=== PATIENT | male | born 1950 | race Caucasian/White ===

== ENCOUNTER 2019-04-08 11:14 | Outpatient (RCR) | payer OTHER ==
[~2019-04-08 11:14] MED LIST: ALBU17AE3 IH; ALBU8.5H4 IH; ASP325T PO; BSP10T PO; BUDE6HFA IH; DESV50TA PO; HCTZ12.5T PO; HYDR1TAB PO; LISI10TA PO; LISI1TAB6 PO; METO25TA PO; OMEG-12 PO; TRAZ150T42 PO; VENL75CA55 PO
[2019-04-22] MEDS ORDERED: REGADENOSON 0.4 MG/5 ML SYR (LEXISCAN) IV ONE (08:48)
[2019-04-22] MEDS ORDERED: ACET-2267 PO (10:45)
[2019-04-22] MEDS ORDERED: POTA-51 PO (10:45)
[2019-04-22] MEDS ORDERED: LISI1TAB29 PO (10:45)
[2019-04-22] MEDS ORDERED: RT-ALBUINH IH (10:45)
[2019-04-22] MEDS ORDERED: NICO4GUM31 BC (10:45)
[2019-04-22] MEDS ORDERED: AMLO10TA7 PO (10:45)
[2019-04-22] MEDS ORDERED: CIPR-225 PO (10:46)
[2019-04-23] MEDS ORDERED: NS IV 500 ML 500 ML ONE (09:02)
[2019-04-24] MEDS ORDERED: PRED10TA22 PO (07:13)
[2019-04-24] MEDS ORDERED: FLUT12AE4 IH (07:13)
[2019-04-24] MEDS ORDERED: DILT120C88 PO (07:13)
[2019-04-24] MEDS ORDERED: APIX5TAB PO (07:13)
[2019-04-27] MEDS ORDERED: FLUT12AE4 IH (09:04)
[2019-04-27] MEDS ORDERED: APIX5TAB PO (09:04)
[2019-04-27] MEDS ORDERED: DILT120C88 PO (09:04)
== END 2019-07-07 | disposition home or self-care (01) ==
LOC: CARD 11:14
PROVIDERS: ATTEND Nurse Practitioner Adult Health
DX: I49.9 Cardiac arrhythmia, unspecified (principal)
CPT/HCPCS: 93225; 93226

== ENCOUNTER → 2019-04-12 | Outpatient (CLI) | payer OTHER | LOC: CARD 07:51 | PROVIDERS: ATTEND Nurse Practitioner Adult Health | DX: I49.9 Cardiac arrhythmia, unspecified (principal); I51.7 Cardiomegaly | CPT/HCPCS: 93306 ==

== ENCOUNTER 2019-04-21 00:41 | Inpatient (IN) | payer OTHER ==
[~2019-04-21] VITALS: Ht 182.8 cm; Wt 135.8 kg
[2019-04-21] MEDS ORDERED: RT-ALBUTEROL/IPRATROPIUM 3 ML (DUONEB) VIAL ONE (01:11)
[2019-04-21] MEDS ORDERED: RT-ALBUTEROL/IPRATROPIUM 3 ML (DUONEB) VIAL INH ONE (01:15)
[2019-04-21 01:23] LABS: BASOPHILS % (AUTO) 0 % (0-10); EOSINOPHILS # (AUTO) 0.2 10^3/uL (0.0-0.3); EOSINOPHILS % (AUTO) 4 % (0-10); HEMATOCRIT 42 % (40-54); HEMOGLOBIN 14.4 G/DL (13.3-17.7); LYMPHOCYTES # (AUTO) 1.2 X 10^3 (1.0-4.0); LYMPHOCYTES % (AUTO) 26 % (12-44); MEAN CORPUSCULAR HEMOGLOBIN 32 PG (25-34); MEAN CORPUSCULAR HGB CONC 34 G/DL (32-36); MEAN CORPUSCULAR VOLUME 94 FL (80-99); MEAN PLATELET VOLUME 10.9 FL (7.4-10.4); MONOCYTES # (AUTO) 0.5 X 10^3 (0.0-1.0); MONOCYTES % (AUTO) 10 % (0-12); NEUTROPHILS # (AUTO) 2.8 X 10^3 (1.8-7.8); NEUTROPHILS % (AUTO) 61 % (42-75); PLATELET COUNT 124 10^3/uL (130-400); RED CELL DISTRIBUTION WIDTH 13.2 % (10.0-14.5); WHITE BLOOD COUNT 4.6 10^3/uL (4.3-11.0)
[2019-04-21 01:29] LABS: PROTHROMBIN TIME PATIENT 13.5 SEC (12.2-14.7)
[2019-04-21 01:36] LABS: ALANINE AMINOTRANSFERASE 24 U/L (0-55); ALKALINE PHOSPHATASE 47 U/L (40-136); BILIRUBIN,TOTAL 0.4 MG/DL (0.1-1.0); BUN/CREATININE RATIO 15; CALCIUM 8.8 MG/DL (8.5-10.1); CARBON DIOXIDE 21 MMOL/L (21-32); CHLORIDE 102 MMOL/L (98-107); CREATININE SERUM 1.08 MG/DL (0.60-1.30); GFR ESTIMATED > 60; GLUCOSE 114 MG/DL (70-105); POTASSIUM 3.5 MMOL/L (3.6-5.0); SODIUM 137 MMOL/L (135-145); TOTAL PROTEIN 7.6 GM/DL (6.4-8.2)
[2019-04-21] MEDS ORDERED: RT-ALBUTEROL SULF 2.5 MG/3 ML PRE-MIX VIAL INH STA ×2 (02:42→03:41)
[2019-04-21] MEDS ORDERED: predniSONE 20 MG TAB PO ONE (02:45)
--- NOTE | 2019-04-21 03:00 | ED Respiratory ---
General Chief Complaint: Respiratory Problems Stated Complaint: SOA Nursing Triage Note: PT PRESENTS TO THE ED C/O EXERTIONAL SOA AND PERSISTENT COUGH THAT HAS BEEN ONGOING FOR ONE MONTH BUT HAS WORSENED IN SEVERITY OVER THE LAST 2-3 DAYS. Source: patient Exam Limitations: no limitations History of Present Illness Date Seen by Provider: Apr 21, 2019 Time Seen by Provider: 01:15 Initial Comments Here with report of shortness of air now with some anterior chest tightness. Seen by his provider and started on antibiotic. Has used an inhaler and states it's helped a little bit. Does history concerning for possible COPD that's undergoing evaluation currently. Recently quit smoking. Unsure about fevers but has had chills. No vomiting but has had loose stools and is coughing quite a bit. He has a fair amount of mucous that he is coughing up. Timing/Duration: getting worse, other (2-3 days) Severity: moderate Prior Episodes/Possible Cause: occasional episodes Modifying Factors: Improves With Albuterol Inhaler; Worse With Coughing; Improves With Rest Associated Symptoms: cough, fever/chills, nasal congestion, nasal drainage, shortness of breath, wheezing Allergies and Home Medications Allergies Coded Allergies: No Known Drug Allergies (Unverified , 07/26/11) Home Medications Albuterol Sulfate 8.5 Gm Hfa.aer.ad, 8.5 GM IH PRN, (Reported) SOB/Wheezing Aspirin 325 Mg Tab, 325 MG PO DAILY, (Reported) Budesonide/Formoterol Fumarate 10.2 Gm Hfa.aer.ad, 10.2 GM IH BID, (Reported) Buspirone Hcl 10 Mg Tablet, 20 MG PO BID, (Reported) Hctz/Lisinopril 1 Each Tablet, 1 EACH PO DAILY, (Reported) Metoprolol Succinate 25 Mg Tab.sr.24h, 25 MG PO DAILY, (Reported) [place]osit-3/Dha/Epa/Fish Oil 1 Each Capsule.dr, 2,000 MG PO BID, (Reported) Venlafaxine Hcl 75 Mg Cap.sr.24h, 75 MG PO DAILY, (Reported) Patient Home Medication List Home Medication List Reviewed: Yes Review of Systems Review of Systems Constitutional: see HPI; No chills, No fever EENTM: see HPI Respiratory: see HPI; No hemoptysis, No orthopnea Cardiovascular: chest pain (tightness to the left side lower chest.); No edema Gastrointestinal: No abdominal pain, No nausea, No vomiting Genitourinary: no symptoms reported Musculoskeletal: no symptoms reported Skin: no symptoms reported Psychiatric/Neurological: No Symptoms Reported Hematologic/Lymphatic: No Symptoms Reported All Other Systems Reviewed Negative Unless Noted: Yes Past Lwfixsq-Ebfpii-Rfcobq Hx Past Med/Social Hx: Reviewed Nursing Past Med/Soc Hx Patient Social History Alcohol Use: Occasionally Uses Alcohol Beverage of Choice: Beer Recreational Drug Use: No Smoking Status: Current Everyday Smoker Type Used: Cigarettes Recent Foreign Travel: No Contact w/Someone Who Travel: No Recent Infectious Disease Expo: No Physical Abuse: No Sexual Abuse: No Mistreated: No Fear: No Immunizations Up To Date Tetanus Booster (TDap): Unknown PED Vaccines UTD: Yes Date of Pneumonia Vaccine: Jan 25, 2012 Date of Influenza Vaccine: Jan 19, 2011 Past Medical History Surgeries: No Respiratory: No Cardiac: Yes Atrial Fibrillation Neurological: No Reproductive Disorders: No Sexually Transmitted Disease: No Genitourinary: No Gastrointestinal: No Musculoskeletal: Yes (RESTLESS LEG SYNDROME) Endocrine: No HEENT: No Cancer: No Psychosocial: No Integumentary: Yes (MOLES-REMOVED) Blood Disorders: No Family Medical History Reviewed Nursing Family Hx No Pertinent Family Hx Physical Exam Vital Signs - First Documented 04/21/19 00:43 Temp 36.7 Pulse 89 Resp 26 B/P (MAP) 141/98 (112) Pulse Ox 97 O2 Delivery Room Air Capillary Refill : Less Than 3 Seconds Height: '" Weight: lbs. oz. kg; 39.00 BMI Method: General Appearance: WD/WN, no apparent distress HEENT: PERRL/EOMI, pharyngeal erythema, other (mild nasal congestion) Neck: full range of motion, supple Respiratory: no accessory muscle use, decreased breath sounds, wheezing Cardiovascular: regular rate, rhythm, no murmur Gastrointestinal: non tender, soft Extremities: non-tender, normal inspection Neurologic/Psychiatric: alert, oriented x 3 Skin: normal color, warm/dry Focused Exam Lactate Level 04/21/19 01:20: Lactic Acid Level 1.64 Lactic Acid Level Laboratory Tests Test 04/21/19 01:20 Lactic Acid Level 1.64 MMOL/L (0.50-2.00) Progress/Results/Core Measures Suspected Sepsis Recent Fever Within 48 Hours: No Infection Criteria Present: None New/Unexplained Altered Menta: No Sepsis Screen: No Definite Risk SIRS Temperature: Pulse: 89 Respiratory Rate: 26 Laboratory Tests 04/21/19 00:50: White Blood Count 4.6 Blood Pressure 141 /98 Mean: 112 04/21/19 01:20: Lactic Acid Level 1.64 Laboratory Tests 04/21/19 00:50: Creatinine 1.08, INR Comment 1.0, Platelet Count 124L, Total Bilirubin 0.4 Results/Orders Lab Results Laboratory Tests Test 04/21/19 00:50 04/21/19 01:20 04/21/19 02:50 Range/Units White Blood Count 4.6 4.3-11.0 10^3/uL Red Blood Count 4.44 4.35-5.85 10^6/uL Hemoglobin 14.4 13.3-17.7 G/DL Hematocrit 42 40-54 % Mean Corpuscular Volume 94 80-99 FL Mean Corpuscular Hemoglobin 32 25-34 PG Mean Corpuscular Hemoglobin Concent 34 32-36 G/DL Red Cell Distribution Width 13.2 10.0-14.5 % Platelet Count 124 L 130-400 10^3/uL Mean Platelet Volume 10.9 H 7.4-10.4 FL Neutrophils (%) (Auto) 61 42-75 % Lymphocytes (%) (Auto) 26 12-44 % Monocytes (%) (Auto) 10 0-12 % Eosinophils (%) (Auto) 4 0-10 % Basophils (%) (Auto) 0 0-10 % Neutrophils # (Auto) 2.8 1.8-7.8 X 10^3 Lymphocytes # (Auto) 1.2 1.0-4.0 X 10^3 Monocytes # (Auto) 0.5 0.0-1.0 X 10^3 Eosinophils # (Auto) 0.2 0.0-0.3 10^3/uL Basophils # (Auto) 0.0 0.0-0.1 10^3/uL Prothrombin Time 13.5 12.2-14.7 SEC INR Comment 1.0 0.8-1.4 Activated Partial Thromboplast Time 29 24-35 SEC Sodium Level 137 135-145 MMOL/L Potassium Level 3.5 L 3.6-5.0 MMOL/L Chloride Level 102 98-107 MMOL/L Carbon Dioxide Level 21 21-32 MMOL/L Anion Gap 14 5-14 MMOL/L Blood Urea Nitrogen 16 7-18 MG/DL Creatinine 1.08 0.60-1.30 MG/DL Estimat Glomerular Filtration Rate > 60 BUN/Creatinine Ratio 15 Glucose Level 114 H 70-105 MG/DL Calcium Level 8.8 8.5-10.1 MG/DL Corrected Calcium 8.8 8.5-10.1 MG/DL Total Bilirubin 0.4 0.1-1.0 MG/DL Aspartate Amino Transf (AST/SGOT) 30 5-34 U/L Alanine Aminotransferase (ALT/SGPT) 24 0-55 U/L Alkaline Phosphatase 47 40-136 U/L Troponin I < 0.028 < 0.028 <0.028 NG/ML Total Protein 7.6 6.4-8.2 GM/DL Albumin 4.0 3.2-4.5 GM/DL Lactic Acid Level 1.64 0.50-2.00 MMOL/L My Orders Orders - ANJU CONNER MD Albuterol/Ipra Inhalation Soln (Duoneb I (04/21/19 01:11) Albuterol/Ipra Inhalation Soln (Duoneb I (04/21/19 01:15) Cbc With Automated Diff (04/21/19 01:13) Comprehensive Metabolic Panel (04/21/19 01:13) Blood Culture (04/21/19 01:13) Sputum Culture (04/21/19 01:13) Urinalysis (04/21/19 01:13) Urine Culture (04/21/19 01:13) Protime With Inr (04/21/19 01:13) Partial Thromboplastin Time (04/21/19 01:13) Chest 1 View, Ap/Pa Only (04/21/19 01:13) Ed Iv/Invasive Line Start (04/21/19 01:13) Ed Iv/Invasive Line Start (04/21/19 01:13) Troponin I (04/21/19 01:13) Vital Signs Adult Sepsis Patie Q15M (04/21/19 01:13) O2 (04/21/19 01:13) Remove Rings In Anticipation O (04/21/19 01:13) Lactic Acid Analyzer (04/21/19 01:13) Svn Small Volume Nebulizer (04/21/19 01:13) Ekg Tracing (04/21/19 01:48) Albuterol Pre-Mix Nebs (Rt) (Proventil (04/21/19 02:42) Troponin I (04/21/19 02:42) Svn Small Volume Nebulizer (04/21/19 02:42) Prednisone Tablet (Deltasone Tablet) (04/21/19 02:45) Aspirin Chewable Tablet (Baby Aspirin Ch (04/21/19 03:38) Albuterol Pre-Mix Nebs (Rt) (Proventil (04/21/19 03:41) Ipratropium 0.02% Neb Solution (Atrovent (04/21/19 03:45) Svn Small Volume Nebulizer (04/21/19 03:41) Svn Small Volume Nebulizer (04/21/19 03:41) Medications Given in ED Current Medications Medications Dose Ordered Sig/Sher Route Start Time Stop Time Status Last Admin Dose Admin Albuterol/ Ipratropium 3 ml ONCE ONCE INH 04/21/19 01:15 04/21/19 01:16 DC 04/21/19 01:19 3 ML Prednisone 60 mg ONCE ONCE PO 04/21/19 02:45 04/21/19 02:46 DC 04/21/19 02:46 60 MG Vital Signs/I&O 04/21/19 04/21/19 00:43 01:16 Temp 36.7 Pulse 89 Resp 26 B/P (MAP) 141/98 (112) Pulse Ox 97 95 O2 Delivery Room Air Room Air Capillary Refill : Less Than 3 Seconds Blood Pressure Mean: 112 Progress Note : Progress Note Seen and evaluated. Sepsis order set initiated plus troponin and EKG. Duo neb ordered. Monitor patient. 0300: Repeat nebulizer treatments with albuterol 3 and prednisone 60 mg by mouth ordered. We will repeat troponin. Patient is better after initial DuoNeb and states the chest tightness that he was experiencing has decreased but is still there so we will repeat the troponin. Monitor patient. 0333: Patient below better after repeat albuterol nebs. Noted to have desats while coughing. States he feels like he is moving a bit more air. I discussed with him regarding his atrial fibrillation. He believes he may be on a blood thinner but is not sure and did not bring his meds. [facility] He will require hour-long treatment and he is going to require more persistent respiratory therapy to help him overcome the COPD exacerbation he currently has. Chest pressure has decreased with the nebulizer treatments and I do believe this is related to tightness although he will need further evaluation with cardiology. He recently had an echocardiogram with Dr. Chavez in March. I did discuss with him regarding staying and he would like to stay. I discussed the case with Dr. Méndez and she accepts patient for admission, inpatient status. Consult cardiology in the morning. Patient agrees with plan. ASA 324 mg by mouth was given as well. ECG Initial ECG Impression Date: Apr 21, 2019 Initial ECG Impression Time: 00:57 Initial ECG Rate: 83 Initial ECG Rhythm: A Fib/Flutter Initial ECG Impression: Atrial Fibrillation Comment Atrial fibrillation with right bundle branch block and left anterior fascicular block. Changed from sinus previously on 06/24/12. Left axis deviation. No evidence of ST elevation CT. Interpreted by me. Diagnostic Imaging Diagonstic Imaging: Xray Plain Films/CT/US/NM/MRI: chest Comments Chronic lung disease without obvious infiltrate. Reviewed: Reviewed by Me Departure Communication (Admissions) Time/Spoke to Admitting Phy: 03:33 Impression Primary Impression: COPD with acute exacerbation Disposition: ADMITTED INPATIENT Condition: Stable Admissions Decision to Admit Reason: Admit from ER (General) Decision to Admit/Date: Apr 21, 2019 Time/Decision to Admit Time: 03:33 Departure-Patient Inst. Referrals: NO,LOCAL PHYSICIAN (PCP) Primary Care Physician POLY GARCIA (Family) Primary Care Physician ANJU CONNER MD Apr 21, 2019 03:00
[2019-04-21] MEDS ORDERED: ASPIRIN 81 MG CHEW (CHILDREN'S ASA) PO STA (03:38)
[2019-04-21] MEDS ORDERED: RT-IPRATROPIUM (ATROVENT) 0.5MG/2.5ML AMP IH ONE (03:45)
--- NOTE | 2019-04-21 04:08 | NUR ---
rt called to resume breathing tx when pt arrives on 4th floor.
[2019-04-21 04:15] VITALS: BP 120/80
--- NOTE | 2019-04-21 04:15 | NUR ---
PEACE BRUCE admitted to room 414-1, with an admitting diagnosis of CHEST PAIN/COPD , on 04/21/19 from ED via , accompanied by ED STAFF.PEACE BRUCE introduced to surroundings, call light, bed controls, phone, TV, temperature control, lights, meal times, smoking policy, visitor policy, side rail policy, bathrooms and showers. Patient Rights given to patient in the handbook. PEACE BRUCE verbalizes understanding that [facility] is not responsible for the loss or damage to any personal effects or valuables that are kept in the patients posession during their hospitalization.
[2019-04-21] MEDS ORDERED: LACTATED RINGERS 1,000 ML IV ONE (04:26)
[2019-04-21] MEDS: LACTATED RINGERS 1,000 ML IV SCH ×2 (05:49→17:31)
[2019-04-21] MEDS: predniSONE 20 MG TAB PO SCH (06:19)
--- NOTE | 2019-04-21 06:56 | Diagnostic Imaging Report ---
INDICATION: Cough and congestion. Comparison made with prior examination 07/29/2012. FINDINGS: There is cardiomegaly. There is some venous congestion. There are bilateral perihilar infiltrates. There is no pleural effusion or pneumothorax. Mediastinum is unremarkable. IMPRESSION: Perihilar infiltrate suspect for pneumonia. Some underlying central pulmonary venous congestion cannot be excluded. Dictated by: Dictated on workstation # [id number]
[2019-04-21] MEDS ORDERED: NITROGLYCERIN 0.4 MG SL TABS BTL 25'S SL PRN (07:30)
[2019-04-21] MEDS ORDERED: morphine INJ 4 MG/ML 1 ML (VIAL/SYRINGE) IV PRN (07:30)
[2019-04-21] MEDS ORDERED: RT-ALBUTEROL/IPRATROPIUM 3 ML (DUONEB) VIAL INH PRN (07:45)
[2019-04-21 08:00] VITALS: BP 124/75
[2019-04-21] MEDS: ASPIRIN 325 MG (5 GR) TABLET PO SCH (08:54)
--- NOTE | 2019-04-21 11:44 | NUR ---
DR COATES ORDERED ECHO -- [facility] INST[facility]ER WAS CALLED
[2019-04-21] MEDS: RT-ALBUTEROL/IPRATROPIUM 3 ML (DUONEB) VIAL INH SCH ×4 (11:59→23:18)
[2019-04-21 12:00] VITALS: BP 131/70
--- NOTE | 2019-04-21 12:05 | History & Physical-Hospitalist ---
History of Present Illness HPI/Chief Complaint Pt is a 68yoCM who presented to the ER due to SOB. he states this has been going on for a few days and he was started on anabiotic by his doctor at the [facility]. Despite this he has not improved and he has been using his albuterol every 2 hours. He does not know the diagnosis of COPD but he has been told he is being worked up for this. He has a long history of smoking and has been working on quitting cutting down from a pack per day to one cigarette every couple of days. He was treated with multiple breathing treatments and started on prednisone and despite this only had minimal improvement and was admitted due to COPD exacerbation. He did complain of some chest pain as well and troponin were done and were negative 3. He received aspirin in the emergency room. Source: patient Date Seen 04/21/19 Time Seen by a Provider: 11:59 Attending Physician Lawanda Méndez MD PCP No,Local Physician Referring Physician Date of Admission Apr 21, 2019 at 03:40 Home Medications & Allergies Home Medications Reviewed patient Home Medication Reconciliation performed by pharmacy medication reconciliations certified pest control technician and/or nursing. Patients Allergies have been reviewed. Allergies Allergies Coded Allergies No Known Drug Allergies (Unverified07/26/11) Past Izprbjb-Xiayms-Xemozq Hx Past Med/Social Hx: Reviewed Nursing Past Med/Soc Hx Patient Social History Alcohol Use: Past History (quit 01/2019) Recreational Drug Use: No Smoking Status: Current Someday Smoker Type Used: Cigarettes Recent Foreign Travel: No Contact w/other who traveled: No Recent Infectious Disease Expo: No Immunizations Up To Date Tetanus Booster (TDap): Unknown Pediatric: Yes Date of Pneumonia Vaccine: Jan 19, 2019 Date of Influenza Vaccine: Jan 19, 2019 Past Medical History Respiratory: COPD Cardiac: Atrial Fibrillation, Hypertension Reproductive: No Sexually Transmitted Disease: No History of Blood Disorders: No Family History Reviewed Nursing Family Hx No Pertinent Family Hx Review of Systems Constitutional: No chills, No fever EENTM: no symptoms reported Respiratory: cough, dyspnea on exertion; No hemoptysis; short of breath, wheezing Cardiovascular: see HPI, chest pain Gastrointestinal: no symptoms reported Genitourinary: no symptoms reported Musculoskeletal: no symptoms reported Skin: no symptoms reported Psychiatric/Neurological: No Symptoms Reported Physical Exam Physical Exam Vital Signs Vital Signs - First Documented 04/21/19 04/21/19 04/21/19 00:43 08:09 20:00 Temp 36.7 Pulse 89 Resp 26 B/P (MAP) 141/98 (112) Pulse Ox 97 O2 Delivery Room Air O2 Flow Rate 2.00 FiO2 21 Capillary Refill : Less Than 3 Seconds Height, Weight, BMI Height: '" Weight: lbs. oz. kg; 42.64 BMI Method: General Appearance: No Apparent Distress, WD/WN, Anxious HEENT: Moist Mucous Membranes; No Scleral Icterus (L), No Scleral Icterus (R) Neck: Normal Inspection, Supple; No Thyromegaly Respiratory: No Accessory Muscle Use, No Respiratory Distress, Wheezing (expiratory) Cardiovascular: Regular Rate, Rhythm, No Murmur Gastrointestinal: Normal Bowel Sounds, Non Tender, Soft Extremity: No Calf Tenderness, No Pedal Edema Neurologic/Psychiatric: Alert, Oriented x3 Skin: Normal Color, Tattoos/Piercings Results Results/Procedures Labs Laboratory Tests 04/21/19 00:50 Patient resulted labs reviewed. Imaging: Reviewed Imaging Report Imaging Date of Exam:04/21/19 CHEST 1 VIEW, AP/PA ONLY INDICATION: Cough and congestion. Comparison made with prior examination 07/29/2012. FINDINGS: There is cardiomegaly. There is some venous congestion. There are bilateral perihilar infiltrates. There is no pleural effusion or pneumothorax. Mediastinum is unremarkable. IMPRESSION: Perihilar infiltrate suspect for pneumonia. Some underlying central pulmonary venous congestion cannot be excluded. Assessment/Plan Admission Diagnosis COPD Exacerbation Admission Status: Inpatient Order (span 2 midnights) Reason for Inpatient Admission: Failed outpatient management Assessment and Plan COPD Exacerbation Recent PNA Continue Prednisone and SVNs Continues to wheeze and is dyspneic with conversation Not appropriate for DC home today Recently completed abx for PNA so will not start abx here as is afebrile and without leukocytosis HTN A-fib Chest pain Add telemetry lovenox for stroke ppx Cardiology consulted, appreciate recs Troponin negative x3 BP well controlled so will hold home meds for now Tobacco abuse h/o alcohol abuse Recommended continued cessation Diagnosis/Problems Diagnosis/Problems (1) Atrial fibrillation Status: Acute Qualifiers: Atrial fibrillation type: paroxysmal Qualified Codes: I48.0 - Paroxysmal atrial fibrillation (2) Tobacco abuse Status: Acute (3) Alcohol abuse Status: Acute (4) COPD with acute exacerbation Status: Acute (5) Chest pain Status: Acute Qualifiers: Chest pain type: chest pain on breathing Qualified Codes: R07.1 - Chest pain on breathing Clinical Quality Measures DVT/VTE Risk/Contraindication: Risk Factor Score Per Nursin RFS Level Per Nursing on Admit: 4+=Very High LAWANDA MÉNDEZ MD Apr 21, 2019 12:05
[2019-04-21] MEDS: ENOXAPARIN 300 MG/3 ML (LOVENOX) MULTI-DOSE VIAL SQ SCH (13:50)
[2019-04-21 16:05] VITALS: BP 149/75
--- NOTE | 2019-04-21 16:06 | Consultation-Cardiology ---
HPI-Cardiology Cardiology Consultation: Date of Consultation 04/21/19 Date of Admission Attending Physician Tavia Méndez MD Admitting Physician No,Local Physician Consulting Physician Harriet CALLAWAY MD HPI: Time Seen by a Provider: 13:00 Chief Complaint: Shortness of breath, chest pain This is a 68-year-old gentleman who has history of COPD and active smoking. He quit smoking a month ago. He does have family history of [place]. He denies any cardiac problems previously. He had coronary angiography done in June [address] Chavez which would minimal CAD. He presented with worsening shortness of breath with severe orthopnea. Also complained of chest discomfort. Substernal but associated with coughing. No exacerbating or relieving factors. Moderate to severe intensity. Review of Systems-Cardiology Review of Systems Constitutional: As described under HPI; No As described under HPI, No no symptoms reported, No chills, No fever, No lightheadedness Eyes: No As described under HPI, No no symptoms reported, No blindness, No blurred vision, No contact lenses, No drainage, No decreased acuity, No foreign body sensation, No pain, No vision change Ears/Nose/Throat: No As described under HPI, No no symptoms reported, No chronic hearing loss, No ear discharge, No ear pain, No nasal drainage, No ulcerations Respiratory: No no symptoms reported; As described under HPI; No As described under HPI, No cough; orthopnea; No shortness of breath, No SOB with excertion Cardiovascular: No no symptoms reported; As described under HPI; No As described under HPI; chest pain; No edema, No irregular heart rate, No lightheadedness, No palpitations Gastrointestinal: No no symptoms reported, No As described under HPI, No abdomen distended, No abdominal pain, No blood streaked bowels, No constipation, No diarrhea, No nausea, No vomiting, No stool coloration changes Genitourinary: No As described under HPI, No burning, No dysuria, No discharge, No frequency, No flank pain, No hematuria, No urgency Skin: No rash, No skin related problems, No ulcerations Psychiatric/Neurological: No anxiety, No depression, No seizure, No focal weakness, No syncope Hematologic: No bleeding abnormalities All Other Systems Reviewed Negative Unless Noted: Yes WCD-Edxuyy-Sopepl Hx Patient Social History Alcohol Use: Past History (quit 01/2019) Recreational Drug Use: No Smoking Status: Current Someday Smoker Type Used: Cigarettes Recent Foreign Travel: No Recent Infectious Disease Expo: No Hospitalization with Isolation: Denies Immunizations Up To Date Tetanus Booster (TDap): Unknown Date of Pneumonia Vaccine: Jan 19, 2019 Date of Influenza Vaccine: Jan 19, 2019 Past Medical History PMH As described under Assessment. Allergies and Home Medications Allergies Coded Allergies: No Known Drug Allergies (Unverified , 07/26/11) Home Medications Albuterol Sulfate 8.5 Gm Hfa.aer.ad, 8.5 GM IH PRN, (Reported) SOB/Wheezing Budesonide/Formoterol Fumarate 10.2 Gm Hfa.aer.ad, 10.2 GM IH BID, (Reported) Hctz/Lisinopril 1 Each Tablet, 1 EACH PO DAILY, (Reported) Metoprolol Succinate 25 Mg Tab.sr.24h, 25 MG PO DAILY, (Reported) [place]-3/Dha/Epa/Fish Oil 1 Each Capsule.dr, 2,000 MG PO BID, (Reported) Patient Home Medication List Home Medication List Reviewed: Yes Physical Exam-Cardiology Physical Exam Vital Signs/I&O 04/21/19 04/21/19 04/21/19 04/21/19 04:04 04:15 04:15 08:00 Temp 36.7 37.2 36.2 Pulse 86 97 82 Resp 12 22 20 B/P (MAP) 126/105 120/80 124/75 (91) Pulse Ox 100 97 93 O2 Delivery Room Air Room Air Room Air Room Air 04/21/19 04/21/19 04/21/19 04/21/19 08:04 08:09 12:00 12:00 Temp 35.8 Pulse 85 69 Resp 20 B/P (MAP) 131/70 (90) Pulse Ox 91 91 91 96 O2 Delivery Room Air Room Air Room Air FiO2 21 04/21/19 13:36 Pulse 73 Capillary Refill : Less Than 3 Seconds Constitutional: appears stated age, AAO x 3, apparent distress, well-developed, well-nourished HEENT: PERRL; No discharge; hearing is well preserved, oral hygience is good; No ulceration, No xanthelasmas are seen Neck: No carotid bruit; carotid pulses are 2 + bilaterally Respiratory: accessory muscle use, respiratory distress, chest is bilaterally symmetric, other (course breathing bilaterally. No active wheezing.) Cardiovascular: regular rate-rhythm, S1 and S2 Gastrointestinal: soft, audible bowel sounds; No spleenomegaly Rectal: deferred Extremities: normal range of motion, non-tender, normal inspection; No clubbing, No cyanosis; no lower extremity edema bilateral; No significant edema Neurologic/Psychiatric: no motor/sensory deficits, alert, normal mood/affect, oriented x 3, power is 5/5 both on sides Skin: normal color, warm/dry; No rash, No ulcerations Data Review Labs Laboratory Tests 04/21/19 00:50: White Blood Count 4.6, Red Blood Count 4.44, Hemoglobin 14.4, Hematocrit 42, Mean Corpuscular Volume 94, Mean Corpuscular Hemoglobin 32, Mean Corpuscular Hemoglobin Concent 34, Red Cell Distribution Width 13.2, Platelet Count 124L, Mean Platelet Volume 10.9H, Neutrophils (%) (Auto) 61, Lymphocytes (%) (Auto) 26, Monocytes (%) (Auto) 10, Eosinophils (%) (Auto) 4, Basophils (%) (Auto) 0, Neutrophils # (Auto) 2.8, Lymphocytes # (Auto) 1.2, Monocytes # (Auto) 0.5, Eosinophils # (Auto) 0.2, Basophils # (Auto) 0.0, Prothrombin Time 13.5, INR Comment 1.0, Activated Partial Thromboplast Time 29, Sodium Level 137, Potassium Level 3.5L, Chloride Level 102, Carbon Dioxide Level 21, Anion Gap 14, Blood Urea Nitrogen 16, Creatinine 1.08, Estimat Glomerular Filtration Rate > 60, BUN/Creatinine Ratio 15, Glucose Level 114H, Calcium Level 8.8, Corrected Calcium 8.8, Total Bilirubin 0.4, Aspartate Amino Transf (AST/SGOT) 30, Alanine Aminotransferase (ALT/SGPT) 24, Alkaline Phosphatase 47, Troponin I < 0.028, To pro Protein 7.6, Albumin 4.0 04/21/19 01:20: Lactic Acid Level 1.64 04/21/19 02:50: Troponin I < 0.028 04/21/19 07:05: Troponin I < 0.028 A/P-Cardiology Assessment/Admission Diagnosis COPD exacerbation, Acute respiratory failure, Possible mild diastolic congestive heart failure, Chest pain, Active smoking. Plan COPD exacerbation, defer to the primary team. Acute respiratory failure, due to COPD exacerbation. Possible mild diastolic congestive heart failure, acute BNP. However unlikely significant congestive heart failure. Check echocardiogram. Chest pain, serial troponin negative. Likely will require a stress test in the near future. Active smoking. Strongly suggested to not restart smoking. Thank you for your consultation. Please call me if you have any questions. German Callaway MD, FACP, FACC, FSCAI, FHRS, CCDS Interventional Cardiology Cardiac Electrophysiology Vascular Medicine and Endovascular Interventions Clinical Quality Measures DVT/VTE Risk/Contraindication: Risk Factor Score Per Nursin RFS Level Per Nursing on Admit: 4+=Very High Harriet CALLAWAY MD Apr 21, 2019 16:06
[2019-04-21] MEDS ORDERED: REGADENOSON 0.4 MG/5 ML SYR (LEXISCAN) IV ONE (16:30)
[2019-04-21] MEDS ORDERED: ACETAMINOPHEN 500 MG TAB (TYLENOL) PO PRN (18:45)
[2019-04-21 20:00] VITALS: BP 136/81
[2019-04-21 23:58] VITALS: BP 139/76
[2019-04-22] MEDS: ENOXAPARIN 300 MG/3 ML (LOVENOX) MULTI-DOSE VIAL SQ SCH ×2 (00:29→14:31)
[2019-04-22] MEDS: LORazepam 0.5 MG (ATIVAN) TABLET PO PRN (01:59)
[2019-04-22] MEDS: RT-ALBUTEROL/IPRATROPIUM 3 ML (DUONEB) VIAL INH SCH ×6 (02:18→21:44)
[2019-04-22 03:04] VITALS: BP 174/75
[2019-04-22] MEDS: predniSONE 20 MG TAB PO SCH (05:48)
[2019-04-22 07:45] VITALS: BP 143/88
[2019-04-22] MEDS ORDERED: CATHETER FLUSH 10 ML SYR IV PRN (07:45)
[2019-04-22] MEDS: ASPIRIN 325 MG (5 GR) TABLET PO SCH ×2 (08:43→10:22)
[2019-04-22] MEDS: LACTATED RINGERS 1,000 ML IV SCH (08:44)
--- NOTE | 2019-04-22 09:59 | Progress Note - Hospitalist ---
Subjective HPI/CC On Admission Date Seen by Provider: Apr 22, 2019 Time Seen by Provider: 09:54 Pt is a 68yoCM who presented to the ER due to SOB. he states this has been going on for a few days and he was started on anabiotic by his doctor at the [facility]. Despite this he has not improved and he has been using his albuterol every 2 hours. He does not know the diagnosis of COPD but he has been told he is being worked up for this. He has a long history of smoking and has been working on quitting cutting down from a pack per day to one cigarette every couple of days. He was treated with multiple breathing treatments and started on prednisone and despite this only had minimal improvement and was admitted due to COPD exacerbation. He did complain of some chest pain as well and troponin were done and were negative 3. He received aspirin in the emergency room. Subjective/Events-last exam Pt reports feeling worse today. More short of breath. Was to have a stress test but that was cancelled duet o SOB. Still having sputum. Focused Exam Lactate Level 04/21/19 01:20: Lactic Acid Level 1.64 Objective Exam Vital Signs Vital Signs Date Time Temp Pulse Resp B/P (MAP) Pulse Ox O2 Delivery O2 Flow Rate FiO2 04/22/19 07:45 36.4 77 24 143/88 (106) 92 Nasal Cannula 2.00 04/21/19 08:09 21 Capillary Refill : Less Than 3 SecondsLess Than 3 Seconds General Appearance: No Apparent Distress, Anxious Respiratory: No Respiratory Distress; No Crackles; Wheezing (expiratory) Cardiovascular: Regular Rate, Rhythm, No Murmur Gastrointestinal: Normal Bowel Sounds, Non Tender, Soft Extremity: No Calf Tenderness, No Pedal Edema Neurologic/Psychiatric: Alert, Oriented x3 Results/Procedures Lab Patient resulted labs reviewed. Imaging: Reviewed Imaging Report Assessment/Plan Assessment and Plan Assess & Plan/Chief Complaint COPD Exacerbation Recent PNA Continue Prednisone and SVNs Continues to wheeze and is dyspneic with conversation but some component seems to be anxiety driven Recently completed abx for PNA so will not start abx here as is afebrile and without leukocytosis Advair added Will consult pulm HTN A-fib Chest pain lovenox Cardiology consulted, appreciate recs Was to have stress test but was cancelled due to dyspnea BP trending up, will resume home meds when med rec available Tobacco abuse h/o alcohol abuse Recommended continued cessation Diagnosis/Problems Diagnosis/Problems (1) Atrial fibrillation Status: Acute Qualifiers: Atrial fibrillation type: paroxysmal Qualified Codes: I48.0 - Paroxysmal atrial fibrillation (2) Tobacco abuse Status: Acute (3) Alcohol abuse Status: Acute (4) COPD with acute exacerbation Status: Acute (5) Chest pain Status: Acute Qualifiers: Chest pain type: chest pain on breathing Qualified Codes: R07.1 - Chest pain on breathing Clinical Quality Measures DVT/VTE Risk/Contraindication: Risk Factor Score Per Nursin RFS Level Per Nursing on Admit: 4+=Very High LAWANDA HELMS MD Apr 22, 2019 09:59
[2019-04-22] MEDS ORDERED: RT-ALBUINH IH (10:45)
[2019-04-22] MEDS ORDERED: LISI1TAB6 PO (10:45)
[2019-04-22] MEDS ORDERED: ACET-2267 PO (10:45)
[2019-04-22] MEDS ORDERED: AMLO10TA7 PO (10:45)
[2019-04-22] MEDS ORDERED: POTA-51 PO (10:45)
[2019-04-22] MEDS ORDERED: NICO4GUM31 BC (10:45)
[2019-04-22] MEDS ORDERED: CIPR-225 PO (10:46)
--- NOTE | 2019-04-22 10:52 | NUR ---
HAD A LIST FAXED OVER FROM THE [facility] AND WENT OVER IT WITH THE PATIENT. HE VERIFIED WHAT HE IS TAKING HOWEVER IS PAST DUE FOR REFILL ON A FEW, I NOTED THE PAST DUE FILL DATES ON THE MED REC. [facility]: 03-09-19 POTASSIUM 20MEQ 1/2 TAB DAILY #45 03-08-19 NICOTINE 4MG GUM #110 02-17-19 PROAIR INHALER 2 PUFFS BID PRN 12-08-18 AMLODIPINE 10MG 1/2 TAB EVER EVENING #45 12-08-18 LISINOPRIL HCTZ 10-12.5MG DAILY #90 11-14-18 OFLOXACIN (NO LONGER TAKING) 11-14-18 PREDNISOLONE ACETATE 1% (NO LONGER TAKING) HE HAS A BOTTLE WITH HIM FROM [employer] FOR AN ANTIBIOTIC: 04-20-19 CIPRO 500MG BID X 10 DAYS HE ALSO STATES HE HAS TYLENOL PRN OTC. HE NO LONGER TAKES THE FISH OIL THAT IS [facility].
[2019-04-22 11:30] VITALS: BP 167/81
--- NOTE | 2019-04-22 12:07 | Pulmonary Consultation ---
History of Present Illness History of Present Illness Date of Admission Allergies and Home Medications Allergies Coded Allergies: No Known Drug Allergies (Unverified , 07/26/11) Home Medications Acetaminophen 500 Mg Tablet, 500-1,000 MG PO Q4H PRN for PAIN-MILD (1-4), (Reported) Albuterol Sulfate 1 Puff Puff, 2 PUFF IH BID PRN for SHORTNESS OF BREATH, (Reported) 1 PUFF = 90 MCG Amlodipine Besylate 10 Mg Tablet, 5 MG PO DAILY, (Reported) LAST FILLED #45 12-08-18 TAKES 1/2 (10MG) TABLET Ciprofloxacin HCl 500 Mg Tablet, 500 MG PO BID, (Reported) 10 DAY SUPPLY FILLED 04-20-19 Lisinopril/Hydrochlorothiazide 1 Each Tablet, 1 TAB PO DAILY, (Reported) LAST FILLED #90 12-08-18 Nicotine Polacrilex 4 Mg Gum, 4 MG BC Q1H PRN for SMOKING CESSATION, (Reported) CHEW GUM UTNIL TINGLING SENSATION, THEN PARK THE GUM BETWEEN CHEEK AND GUM AREA. REPEAT (RE-CHEW) WHEN TINGLING STOPS. DON'T EXCEED 24 PIECES PER DAY Potassium Chloride 20 Meq Tablet.er, 10 MEQ PO DAILY, (Reported) TAKES 1/2 (20MEQ) TABLET Past Mapguhz-Kflurl-Vbrqfn Hx Past Med/Social Hx: Reviewed Nursing Past Med/Soc Hx Patient Social History Alcohol Use: Past History (quit 01/2019) Recreational Drug Use: No Smoking Status: Current Someday Smoker Type Used: Cigarettes Recent Foreign Travel: No Contact w/Someone Who Travel: No Recent Infectious Disease Expo: No Physical Abuse: No Sexual Abuse: No Mistreated: No Fear: No Immunizations Up To Date Tetanus Booster (TDap): Unknown PED Vaccines UTD: Yes Date of Pneumonia Vaccine: Jan 19, 2019 Date of Influenza Vaccine: Jan 19, 2019 Past Medical History Surgeries: No Respiratory: No Cardiac: Yes Atrial Fibrillation, Hypertension Neurological: No Reproductive Disorders: No Sexually Transmitted Disease: No Genitourinary: No Gastrointestinal: No Musculoskeletal: Yes (RESTLESS LEG SYNDROME) Endocrine: No HEENT: No Cancer: No Psychosocial: No Integumentary: Yes (MOLES-REMOVED) Blood Disorders: No Family Medical History Reviewed Nursing Family Hx No Pertinent Family Hx Sepsis Event Evaluation Height, Weight, BMI Height: '" Weight: lbs. oz. kg; 42.64 BMI Method: Exam Exam Vital Signs Date Time Temp Pulse Resp B/P (MAP) Pulse Ox O2 Delivery O2 Flow Rate FiO2 04/22/19 11:52 96 Nasal Cannula 2.00 04/22/19 11:30 37.6 71 22 167/81 (109) 98 Nasal Cannula 2.00 04/22/19 08:00 Nasal Cannula 2.00 04/22/19 07:45 36.4 77 24 143/88 (106) 92 Nasal Cannula 2.00 04/22/19 07:00 87 04/22/19 06:58 96 Nasal Cannula 2.00 04/22/19 03:04 36.4 77 26 174/75 (108) 92 Nasal Cannula 2.00 04/22/19 02:18 93 Room Air 04/22/19 00:58 70 04/21/19 23:58 36.8 69 22 139/76 (97) 97 Nasal Cannula 2.00 04/21/19 23:18 96 Room Air 04/21/19 20:00 36.6 63 20 136/81 (99) 99 Nasal Cannula 2.00 04/21/19 20:00 99 Nasal Cannula 2.00 04/21/19 19:20 36.6 04/21/19 19:00 66 04/21/19 18:50 93 Room Air 04/21/19 16:05 36.3 75 18 149/75 (99) 96 Room Air 04/21/19 13:36 73 I & O 04/22/19 07:00 Intake Total 1750 ml Output Total 1400 ml Balance 350 ml Height & Weight Height: '" Weight: lbs. oz. kg; 42.64 BMI Method: General Appearance: No Apparent Distress, Anxious HEENT: Moist Mucous Membranes; No Scleral Icterus (L), No Scleral Icterus (R) Neck: Normal Inspection, Supple; No Thyromegaly Respiratory: No Respiratory Distress; No Crackles; Wheezing (expiratory) Cardiovascular: Regular Rate, Rhythm, No Murmur Capillary Refill: Less Than 3 Seconds Gastrointestinal: non tender, soft Extremity: No Calf Tenderness, No Pedal Edema Neurologic/Psychiatric: Alert, Oriented x3 Skin: Normal Color, Tattoos/Piercings Results Lab Laboratory Tests 04/21/19 00:50 Assessment/Plan Assessment/Plan COPDAE -Currently on prednisone 40mg daily -SVNS Q 4 , Advair -repeat CXR -Check BNP - if elevated will give lasix and d/c IVF Resolving PNA -S/P abx -No leukocytosis, no fever -Agree with holding off on further Abx at this point CP -Cardiology consulted -Stress test was cancelled secondary to SOB A-fib HTN Tobacco abuse -Education h/o alcohol abuse Recommended continued cessation BRIANNA NELSON DO Apr 22, 2019 12:07
--- NOTE | 2019-04-22 12:28 | Diagnostic Imaging Report ---
INDICATION: Shortness of breath. TIME OF EXAM: 12:13 PM Correlation is made with prior chest from one day earlier. Heart size is stable. There has been some improved aeration since yesterday. No parenchymal consolidation is seen. No effusion or pneumothorax is identified. IMPRESSION: Improved aeration of both lungs when compared with study one day earlier. Dictated by: Dictated on workstation # [id number]
[2019-04-22] MEDS ORDERED: FUROSEMIDE 40 MG/4 ML INJ (LASIX) IVP ONE (15:45)
[2019-04-22] MEDS ORDERED: KCL 20 MEQ TAB (K-DUR) PO ONE (15:45)
[2019-04-22 16:00] VITALS: BP 157/80
[2019-04-22] MEDS: RT-ADVAIR HFA 115/21 MCG PER PUFF IH SCH ×2 (16:10→20:24)
--- NOTE | 2019-04-22 16:38 | Cardiology Progress Note ---
Cardiology SOAP Progress Note Subjective: Significant shortness of breath. Objective: I&O/Vital Signs 04/22/19 04/22/19 04/22/19 04/22/19 06:58 07:00 07:45 08:00 Temp 36.4 Pulse 87 77 Resp 24 B/P (MAP) 143/88 (106) Pulse Ox 96 92 O2 Delivery Nasal Cannula Nasal Cannula Nasal Cannula O2 Flow Rate 2.00 2.00 2.00 04/22/19 04/22/19 04/22/19 04/22/19 11:30 11:52 12:20 16:12 Temp 37.6 Pulse 71 71 Resp 22 B/P (MAP) 167/81 (109) Pulse Ox 98 96 94 O2 Delivery Nasal Cannula Nasal Cannula Nasal Cannula O2 Flow Rate 2.00 2.00 2.00 04/22/19 00:00 Intake Total 1600 ml Output Total 800 ml Balance 800 ml Constitutional: appears stated age, AAO x 3, apparent distress, well-developed, well-nourished Respiratory: accessory muscle use, respiratory distress, chest is bilaterally symmetric, other (course breathing bilaterally. No active wheezing.) Cardiovascular: regular rate-rhythm, S1 and S2 Gastrointestional: soft, audible bowel sounds; No spleenomegaly Extremities: normal range of motion, non-tender, normal inspection; No clubbing, No cyanosis; no lower extremity edema bilateral; No significant edema Neurologic/Psychiatric: no motor/sensory deficits, alert, normal mood/affect, oriented x 3, power is 5/5 both on sides Skin: normal color, warm/dry; No rash, No ulcerations Results/Procedures: Labs Laboratory Tests 04/22/19 12:40: B-Type Natriuretic Peptide 147.1H Microbiology 04/21/19 Blood Culture - Preliminary, Resulted No growth A/P: Assessment/Dx: COPD exacerbation, Acute respiratory failure, Possible mild diastolic congestive heart failure, Chest pain, Active smoking. Plan: COPD exacerbation, defer to the primary team. Acute respiratory failure, due to COPD exacerbation. Possible mild diastolic congestive heart failure, minimally elevated BNP. unlikely significant congestive heart failure. Echocardiogram 04/21/2019 shows normal LV function. Concentric LVH. Moderate diastolic dysfunction. Chest pain, serial troponin negative. We tried to perform a Lexiscan nuclear stress test today. However wheezing was noted therefore Lexiscan stress test was not done. We will try to schedule dobutamine stress test tomorrow. Active smoking. Strongly suggested to not restart smoking. Thank you for your consultation. Please call me if you have any questions. German Callaway MD, FACP, FACC, FSCAI, FHRS, CCDS Interventional Cardiology Cardiac Electrophysiology Vascular Medicine and Endovascular Interventions Focused Exam Lactate Level 04/21/19 01:20: Lactic Acid Level 1.64 Harriet CALLAWAY MD Apr 22, 2019 16:38
[2019-04-22 20:27] VITALS: BP 155/98
[2019-04-23] VITALS (7 sets, daily range): BP systolic 104–153; BP diastolic 65–92
[2019-04-23] MEDS: RT-ALBUTEROL/IPRATROPIUM 3 ML (DUONEB) VIAL INH SCH ×5 (02:08→22:26)
[2019-04-23] MEDS: ENOXAPARIN 300 MG/3 ML (LOVENOX) MULTI-DOSE VIAL SQ SCH (02:50)
[2019-04-23] MEDS ORDERED: DOBUTamine DRIP 250 ML IV ONE (07:42)
--- NOTE | 2019-04-23 08:53 | Pulmonary Progress Note ---
RONALD CHRISTENSEN MED STUDENT 04/23/19 0852: Subjective Date Seen by a Provider: Apr 23, 2019 Time Seen by a Provider: 08:30 Subjective/Events-last exam The patient is awake and alert, resting comfortably in his bed. He answers all questions appropriately and fully cooperates with the physical exam. He reports that he is feeling much better today. His shortness of breath is greatly improved. He reports occasional cough productive of whitish/clear sputum. He denies chest pain, fever, or chills. He mentions a sore spot on his stomach where he received an injection yesterday and there is a 4cm hematoma on his abdomen. He has no other questions or concerns at this time. Sepsis Event Evaluation Height, Weight, BMI Height: '" Weight: lbs. oz. kg; 42.64 BMI Method: Focused Exam Lactate Level 04/21/19 01:20: Lactic Acid Level 1.64 Exam Exam Vital Signs Date Time Temp Pulse Resp B/P (MAP) Pulse Ox O2 Delivery O2 Flow Rate FiO2 04/23/19 07:35 37.1 55 20 149/92 (111) 92 Nasal Cannula 2.00 04/23/19 07:00 81 04/23/19 04:29 37.0 89 20 146/72 (96) 94 Nasal Cannula 2.00 04/23/19 02:08 92 Nasal Cannula 2.00 04/23/19 01:00 78 04/23/19 00:05 37.6 74 16 127/78 (94) 96 Nasal Cannula 2.00 04/22/19 20:31 92 Nasal Cannula 2.00 04/22/19 20:27 37.8 95 22 155/98 (117) 90 Room Air 04/22/19 20:24 90 Nasal Cannula 2.00 04/22/19 20:00 Nasal Cannula 2.00 04/22/19 19:00 81 04/22/19 16:12 94 Nasal Cannula 2.00 04/22/19 16:00 37.2 73 22 157/80 (105) 91 Room Air 04/22/19 12:20 71 04/22/19 11:52 96 Nasal Cannula 2.00 04/22/19 11:30 37.6 71 22 167/81 (109) 98 Nasal Cannula 2.00 I & O 04/23/19 07:00 Intake Total 920 ml Output Total 2225 ml Balance -1305 ml Height & Weight Height: '" Weight: lbs. oz. kg; 42.64 BMI Method: General Appearance: No Apparent Distress, WD/WN, Anxious HEENT: No Scleral Icterus (L), No Scleral Icterus (R) Neck: Normal Inspection, Supple; No Thyromegaly Respiratory: No Accessory Muscle Use, No Respiratory Distress, Wheezing (expiratory) Cardiovascular: Regular Rate, Rhythm, No Murmur Capillary Refill: Less Than 3 Seconds Extremity: No Calf Tenderness, No Pedal Edema Neurologic/Psychiatric: Alert, Oriented x3 Skin: Normal Color, Tattoos/Piercings Assessment/Plan Assessment/Plan COPDAE -Currently on prednisone 40mg daily -SVNS Q 4 , Advair -repeat CXR on 04/22 shows improved aeration -BNP: 147.1 - 40mg lasix administered on 04/22 Resolving PNA -S/P abx -No leukocytosis, no fever -Agree with holding off on further Abx at this point CP -Cardiology consulted -Stress test was cancelled secondary to SOB A-fib HTN Tobacco abuse -Education h/o alcohol abuse Recommended continued cessation BRIANNA SMITH DO 04/24/19 0800: Subjective Subjective/Events-last exam PT is doing better. Exam Exam General Appearance: No Apparent Distress, WD/WN, Anxious Neck: Normal Inspection, Supple Respiratory: No Accessory Muscle Use, No Respiratory Distress, Decreased Breath Sounds, Wheezing (expiratory) Cardiovascular: Regular Rate, Rhythm, No Murmur Extremity: No Calf Tenderness, No Pedal Edema Neurologic/Psychiatric: Alert, Oriented x3 Skin: Normal Color Assessment/Plan Assessment/Plan COPDAE - prednisone 40mg daily -SVNS Q 4 , Advair -repeat CXR on 04/22 shows improved aeration Resolving PNA -S/P abx -No leukocytosis, no fever -Agree with holding off on further Abx at this point CP -Cardiology consulted -Stress test was cancelled secondary to SOB A-fib HTN Tobacco abuse -Education h/o alcohol abuse Recommended continued cessation Supervisory-Addendum Brief Verification & Attestation Participated in pt care: history Personally performed: exam, history Care discussed with: Medical Student Procedures: n/a Verification and Attestation of Medical Student E/M Service A medical student performed and documented this service in my presence. I reviewed and verified all information documented by the medical student and made modifications to such information, when appropriate. I personally performed the physical exam and medical decision making. Brianna Smith, Apr 24, 2019,08:00 RONALD CHRISTENSEN MED STUDENT Apr 23, 2019 08:52 BRIANNA SMITH DO Apr 24, 2019 08:00
--- NOTE | 2019-04-23 09:45 | NUR ---
dobutamine gtt was used for stress test due to wheezing, drip was increased to 40 mcg to achieve 85% hr target
[2019-04-23] MEDS: RT-ADVAIR HFA 115/21 MCG PER PUFF IH SCH ×2 (10:36→19:07)
[2019-04-23] MEDS: ASPIRIN 325 MG (5 GR) TABLET PO SCH (11:23)
[2019-04-23] MEDS: predniSONE 20 MG TAB PO SCH (11:23)
--- NOTE | 2019-04-23 12:54 | Cardiology Progress Note ---
Cardiology SOAP Progress Note Subjective: Improved shortness of breath. Objective: I&O/Vital Signs 04/24/19 04/24/19 04/24/19 04/24/19 04:30 07:00 07:15 07:16 Temp 36.5 Pulse 61 73 Resp 20 B/P (MAP) 133/88 (103) Pulse Ox 98 96 96 O2 Delivery Nasal Cannula Nasal Cannula Nasal Cannula O2 Flow Rate 2.00 2.00 2.00 04/24/19 04/24/19 04/24/19 04/24/19 07:45 08:00 10:39 11:17 Temp 36.0 36.0 Pulse 85 63 Resp 22 22 B/P (MAP) 126/80 (95) 128/62 (84) Pulse Ox 93 94 94 O2 Delivery Nasal Cannula Nasal Cannula Nasal Cannula Nasal Cannula O2 Flow Rate 2.00 2.00 2.00 2.00 04/24/19 04/24/19 13:00 14:54 Pulse 88 Pulse Ox 95 O2 Delivery Nasal Cannula O2 Flow Rate 2.00 04/24/19 00:00 Intake Total 270 ml Balance 270 ml Constitutional: appears stated age, AAO x 3, well-developed, well-nourished Respiratory: chest is bilaterally symmetric, wheezing, other (course breathing bilaterally. No active wheezing.) Cardiovascular: regular rate-rhythm, S1 and S2 Gastrointestional: soft, audible bowel sounds; No spleenomegaly Extremities: normal range of motion, non-tender, normal inspection; No clubbing, No cyanosis; no lower extremity edema bilateral; No significant edema Neurologic/Psychiatric: no motor/sensory deficits, alert, normal mood/affect, oriented x 3, power is 5/5 both on sides Skin: normal color, warm/dry; No rash, No ulcerations Results/Procedures: Labs Microbiology 04/21/19 Blood Culture - Preliminary, Resulted No growth A/P: Assessment/Dx: COPD exacerbation, Acute respiratory failure, Possible mild diastolic congestive heart failure, Chest pain, Active smoking. Plan: COPD exacerbation, defer to the primary team. Acute respiratory failure, due to COPD exacerbation. Possible mild diastolic congestive heart failure, minimally elevated BNP. unlikely significant congestive heart failure. Echocardiogram 04/21/2019 shows normal LV function. Concentric LVH. Moderate diastolic dysfunction. Chest pain, serial troponin negative. We tried to perform a Lexiscan nuclear stress test today. However wheezing was noted therefore Lexiscan stress test was not done. Dobutamine stress test today. Active smoking. Strongly suggested to not restart smoking. Thank you for your consultation. Please call me if you have any questions. German Callaway MD, FACP, FACC, FSCAI, FHRS, CCDS Interventional Cardiology Cardiac Electrophysiology Vascular Medicine and Endovascular Interventions Focused Exam Lactate Level Harriet CALLAWAY MD Apr 23, 2019 12:54
--- NOTE | 2019-04-23 13:39 | Progress Note - Hospitalist ---
Subjective HPI/CC On Admission Date Seen by Provider: Apr 23, 2019 Time Seen by Provider: 13:29 Pt is a 68yoCM who presented to the ER due to SOB. he states this has been going on for a few days and he was started on anabiotic by his doctor at [facility]. Despite this he has not improved and he has been using his albuterol every 2 hours. He does not know the diagnosis of COPD but he has been told he is being worked up for this. He has a long history of smoking and has been working on quitting cutting down from a pack per day to one cigarette every couple of days. He was treated with multiple breathing treatments and started on prednisone and despite this only had minimal improvement and was admitted due to COPD exacerbation. He did complain of some chest pain as well and troponin were done and were negative 3. He received aspirin in the emergency room. Subjective/Events-last exam Pt reports feeling better today. Had stress test. Results pending. No complaints. Breathing improved. Focused Exam Lactate Level 04/21/19 01:20: Lactic Acid Level 1.64 Objective Exam Vital Signs Vital Signs Date Time Temp Pulse Resp B/P (MAP) Pulse Ox O2 Delivery O2 Flow Rate FiO2 04/23/19 12:17 37.0 55 22 113/65 (81) 96 Nasal Cannula 2.00 04/21/19 08:09 21 Capillary Refill : Less Than 3 SecondsLess Than 3 Seconds General Appearance: No Apparent Distress, WD/WN, Anxious Respiratory: Lungs Clear, No Respiratory Distress Cardiovascular: No Murmur, Irregularly Irregular Gastrointestinal: Normal Bowel Sounds, Soft Neurologic/Psychiatric: Alert, Oriented x3 Results/Procedures Lab Patient resulted labs reviewed. Imaging: Reviewed Imaging Report Assessment/Plan Assessment and Plan Assess & Plan/Chief Complaint COPD Exacerbation Recent PNA Continue Prednisone and SVNs Continues to wheeze and is dyspneic with conversation Recently completed abx for PNA so will not start abx here as is afebrile and without leukocytosis Home oxygen study in preparation for DC tomorrow HTN A-fib Chest pain Stress test today- results pending lovenox for stroke ppx- switch to eliquis today Cardiology consulted, appreciate recs- discussed with Dr Callaway- possible NINFA cardioversion tomorrow if remains in a-fib Will start cardizem for rate control Tobacco abuse h/o alcohol abuse Recommended continued cessation Diagnosis/Problems Diagnosis/Problems (1) Atrial fibrillation Status: Acute Qualifiers: Atrial fibrillation type: paroxysmal Qualified Codes: I48.0 - Paroxysmal atrial fibrillation (2) Tobacco abuse Status: Acute (3) Alcohol abuse Status: Acute (4) COPD with acute exacerbation Status: Acute (5) Chest pain Status: Acute Qualifiers: Chest pain type: chest pain on breathing Qualified Codes: R07.1 - Chest pain on breathing Clinical Quality Measures DVT/VTE Risk/Contraindication: Risk Factor Score Per Nursin RFS Level Per Nursing on Admit: 4+=Very High LAWANDA HELMS MD Apr 23, 2019 13:39
--- NOTE | 2019-04-23 14:45 | NUR ---
Pastoral care visit with pt following a referral from . Bhavin shared much of his life story and spoke of results of not taking care of himself physically. Pt shared his goals of changing some of his self care and changes he would make for his future well being.I offered support and encouragement.
[2019-04-23] MEDS: LORazepam 0.5 MG (ATIVAN) TABLET PO PRN (14:48)
--- NOTE | 2019-04-23 16:59 | NUR ---
PT WALKED 300FT AND REQUIRING 2L OF OXYGEN. PT WALKED ON RA FOR 3 MINUTES AND SAT DROPPED TO 87% THEN 2L ADDED AND SAT WENT UPTO 91%. PT REQUIRES 2L OF OXYGEN ON EXCERTION
[2019-04-23] MEDS: APIXABAN 5 MG (ELIQUIS) TABLET PO SCH (21:29)
[2019-04-24 00:28] VITALS: BP 117/69
[2019-04-24] MEDS: RT-ALBUTEROL/IPRATROPIUM 3 ML (DUONEB) VIAL INH SCH ×5 (03:02→18:57)
[2019-04-24 04:30] VITALS: BP 133/88
[2019-04-24] MEDS: predniSONE 20 MG TAB PO SCH (06:08)
[2019-04-24] MEDS ORDERED: DILT120C94 PO (07:13)
[2019-04-24] MEDS ORDERED: FLUT12AE4 IH (07:13)
[2019-04-24] MEDS ORDERED: PRED10TA22 PO (07:13)
[2019-04-24] MEDS ORDERED: APIX5TAB PO (07:13)
[2019-04-24] MEDS: RT-ADVAIR HFA 115/21 MCG PER PUFF IH SCH ×2 (07:15→18:57)
--- NOTE | 2019-04-24 07:15 | Discharge Inst-Simple/Standard ---
Discharge Inst-Standard Patient Instructions/Follow Up Plan of Care/Instructions/FU: Please continue to take your medications as written. Please follow up with your primary care doctor in a week and with Dr Callaway and Dr Smith in the next 2-3 weeks. Activity as Tolerated: Yes Discharge Diet: Cardiac Diet Return to The Hospital For: Shortness of breath, chest pain. heart racing, bleeding, falls, if you feel you are getting worse. LAWANDA HELMS MD Apr 24, 2019 07:15
[2019-04-24 07:45] VITALS: BP 126/80
[2019-04-24] MEDS: DILTIAZEM 120 MG (CARDIZEM CD) CAP PO SCH (08:06)
[2019-04-24] MEDS: APIXABAN 5 MG (ELIQUIS) TABLET PO SCH ×2 (08:06→20:39)
[2019-04-24] MEDS: ASPIRIN 325 MG (5 GR) TABLET PO SCH (08:06)
[2019-04-24 11:17] VITALS: BP 128/62
--- NOTE | 2019-04-24 11:44 | Progress Note - Hospitalist ---
Subjective HPI/CC On Admission Date Seen by Provider: Apr 24, 2019 Time Seen by Provider: 11:42 Pt is a 68yoCM who presented to the ER due to SOB. he states this has been going on for a few days and he was started on anabiotic by his doctor at the [place]. Despite this he has not improved and he has been using his albuterol every 2 hours. He does not know the diagnosis of COPD but he has been told he is being worked up for this. He has a long history of smoking and has been working on quitting cutting down from a pack per day to one cigarette every couple of days. He was treated with multiple breathing treatments and started on prednisone and despite this only had minimal improvement and was admitted due to COPD exacerbation. He did complain of some chest pain as well and troponin were done and were negative 3. He received aspirin in the emergency room. Subjective/Events-last exam Pt repors SOb worse today. Very anxious and upset since he heard that his cat . Objective Exam Vital Signs Vital Signs Date Time Temp Pulse Resp B/P (MAP) Pulse Ox O2 Delivery O2 Flow Rate FiO2 04/24/19 10:39 94 Nasal Cannula 2.00 04/24/19 07:45 36.0 85 22 126/80 (95) 04/21/19 08:09 21 Capillary Refill : Less Than 3 SecondsLess Than 3 Seconds General Appearance: No Apparent Distress, Anxious Respiratory: No Accessory Muscle Use, No Respiratory Distress, Wheezing Cardiovascular: No Murmur, Irregularly Irregular Neurologic/Psychiatric: Alert, Oriented x3 Results/Procedures Lab Patient resulted labs reviewed. Imaging: Reviewed Imaging Report Assessment/Plan Assessment and Plan Assess & Plan/Chief Complaint COPD Exacerbation Recent PNA Continue Prednisone and SVNs Home oxygen study reveals 2lpm need Will not DC today due to persistent wheezing Pulm consulted, appreciate recs HTN A-fib Chest pain Stress test today- negative Cardizem for rate, Eliquis for stroke ppx Echo reveals preserved EF with grade 2 diastolic dysfunction Cardiology consulted, appreciate recs- discussed with Dr Callaway yesterday- possible NINFA cardioversion if remains in a-fib Tobacco abuse h/o alcohol abuse Recommended continued cessation Diagnosis/Problems Diagnosis/Problems (1) Atrial fibrillation Status: Acute Qualifiers: Atrial fibrillation type: paroxysmal Qualified Codes: I48.0 - Paroxysmal atrial fibrillation (2) Tobacco abuse Status: Acute (3) Alcohol abuse Status: Acute (4) COPD with acute exacerbation Status: Acute (5) Chest pain Status: Acute Qualifiers: Chest pain type: chest pain on breathing Qualified Codes: R07.1 - Chest pain on breathing Clinical Quality Measures DVT/VTE Risk/Contraindication: Risk Factor Score Per Nursin RFS Level Per Nursing on Admit: 4+=Very High LAWANDA HELMS MD Apr 24, 2019 11:44
[2019-04-24 16:00] VITALS: BP 117/69
--- NOTE | 2019-04-24 16:21 | Cardiology Progress Note ---
Cardiology SOAP Progress Note Subjective: Improved shortness of breath. Objective: I&O/Vital Signs 04/24/19 04/24/19 04/24/19 04/24/19 04:30 07:00 07:15 07:16 Temp 36.5 Pulse 61 73 Resp 20 B/P (MAP) 133/88 (103) Pulse Ox 98 96 96 O2 Delivery Nasal Cannula Nasal Cannula Nasal Cannula O2 Flow Rate 2.00 2.00 2.00 04/24/19 04/24/19 04/24/19 04/24/19 07:45 08:00 10:39 11:17 Temp 36.0 36.0 Pulse 85 63 Resp 22 22 B/P (MAP) 126/80 (95) 128/62 (84) Pulse Ox 93 94 94 O2 Delivery Nasal Cannula Nasal Cannula Nasal Cannula Nasal Cannula O2 Flow Rate 2.00 2.00 2.00 2.00 04/24/19 04/24/19 13:00 14:54 Pulse 88 Pulse Ox 95 O2 Delivery Nasal Cannula O2 Flow Rate 2.00 04/24/19 00:00 Intake Total 270 ml Balance 270 ml Constitutional: appears stated age, AAO x 3, well-developed, well-nourished Respiratory: chest is bilaterally symmetric, wheezing, other (course breathing bilaterally. No active wheezing.) Cardiovascular: regular rate-rhythm, S1 and S2 Gastrointestional: soft, audible bowel sounds; No spleenomegaly Extremities: normal range of motion, non-tender, normal inspection; No clubbing, No cyanosis; no lower extremity edema bilateral; No significant edema Neurologic/Psychiatric: no motor/sensory deficits, alert, normal mood/affect, oriented x 3, power is 5/5 both on sides Skin: normal color, warm/dry; No rash, No ulcerations Results/Procedures: Labs Microbiology 04/21/19 Blood Culture - Preliminary, Resulted No growth A/P: Assessment/Dx: COPD exacerbation, Acute respiratory failure, Possible mild diastolic congestive heart failure, Chest pain, Active smoking. Plan: COPD exacerbation, defer to the primary team. Acute respiratory failure, due to COPD exacerbation. Possible mild diastolic congestive heart failure, minimally elevated BNP. unlikely significant congestive heart failure. Echocardiogram 04/21/2019 shows normal LV function. Concentric LVH. Moderate diastolic dysfunction. Chest pain, serial troponin negative. Dobutamine nuclear stress test done 04/23/2019 showed evidence of apical ischemia. Coronary angiography is recommended. Informed consent was taken. Active smoking. Strongly suggested to not restart smoking. Thank you for your consultation. Please call me if you have any questions. German Callaway MD, FACP, FACC, FSCAI, FHRS, CCDS Interventional Cardiology Cardiac Electrophysiology Vascular Medicine and Endovascular Interventions Harriet CALLAWAY MD Apr 24, 2019 16:21
[2019-04-24 20:00] VITALS: BP 134/61
[2019-04-25] MEDS: RT-ALBUTEROL/IPRATROPIUM 3 ML (DUONEB) VIAL INH SCH ×7 (00:02→22:56)
[2019-04-25 00:17] VITALS: BP 124/81
[2019-04-25 04:13] VITALS: BP 115/68
[2019-04-25] MEDS: predniSONE 20 MG TAB PO SCH (06:53)
--- NOTE | 2019-04-25 07:52 | Pulmonary Progress Note ---
Subjective Date Seen by a Provider: Apr 24, 2019 (late note) Time Seen by a Provider: 07:51 Subjective/Events-last exam PT is doing better. He states he feels better. Sepsis Event Evaluation Height, Weight, BMI Height: '" Weight: lbs. oz. kg; 42.64 BMI Method: Exam Exam Vital Signs Date Time Temp Pulse Resp B/P (MAP) Pulse Ox O2 Delivery O2 Flow Rate FiO2 04/25/19 07:00 65 04/25/19 04:13 36.6 58 22 115/68 (84) 95 Nasal Cannula 2.00 04/25/19 03:39 98 Nasal Cannula 2.00 04/25/19 01:00 57 04/25/19 00:17 36.6 58 20 124/81 (95) 97 Nasal Cannula 2.00 04/24/19 20:00 Nasal Cannula 2.00 04/24/19 20:00 36.7 57 20 134/61 (85) 92 Nasal Cannula 2.00 04/24/19 19:01 96 Nasal Cannula 2.00 04/24/19 19:00 70 04/24/19 18:56 98 Nasal Cannula 2.00 04/24/19 16:00 36.7 69 20 117/69 (85) 93 Nasal Cannula 2.00 04/24/19 14:54 95 Nasal Cannula 2.00 04/24/19 13:00 88 04/24/19 11:17 36.0 63 22 128/62 (84) 94 Nasal Cannula 2.00 04/24/19 10:39 94 Nasal Cannula 2.00 04/24/19 08:00 Nasal Cannula 2.00 I & O 04/25/19 07:00 Intake Total 1960 ml Output Total 100 ml Balance 1860 ml Height & Weight Height: '" Weight: lbs. oz. kg; 42.64 BMI Method: General Appearance: No Apparent Distress, Anxious HEENT: No Scleral Icterus (L), No Scleral Icterus (R) Neck: Normal Inspection, Supple Respiratory: No Accessory Muscle Use, No Respiratory Distress, Wheezing Cardiovascular: No Murmur, Irregularly Irregular Capillary Refill: Less Than 3 Seconds Extremity: No Calf Tenderness, No Pedal Edema Neurologic/Psychiatric: Alert, Oriented x3 Skin: Normal Color Assessment/Plan Assessment/Plan COPDAE - prednisone 40mg daily -SVNS Q 4 , Advair Resolving PNA -S/P abx -No leukocytosis, no fever -Agree with holding off on further Abx at this point CP -Cardiology consulted -Stress test was cancelled secondary to SOB A-fib HTN Tobacco abuse -Education h/o alcohol abuse Recommended continued cessation BRIANNA NELSON DO Apr 25, 2019 07:52
--- NOTE | 2019-04-25 07:55 | Pulmonary Progress Note ---
Subjective Time Seen by a Provider: 07:53 Subjective/Events-last exam No complications noted. Sepsis Event Evaluation Height, Weight, BMI Height: '" Weight: lbs. oz. kg; 42.64 BMI Method: Exam Exam Vital Signs Date Time Temp Pulse Resp B/P (MAP) Pulse Ox O2 Delivery O2 Flow Rate FiO2 04/25/19 07:00 65 04/25/19 04:13 36.6 58 22 115/68 (84) 95 Nasal Cannula 2.00 04/25/19 03:39 98 Nasal Cannula 2.00 04/25/19 01:00 57 04/25/19 00:17 36.6 58 20 124/81 (95) 97 Nasal Cannula 2.00 04/24/19 20:00 Nasal Cannula 2.00 04/24/19 20:00 36.7 57 20 134/61 (85) 92 Nasal Cannula 2.00 04/24/19 19:01 96 Nasal Cannula 2.00 04/24/19 19:00 70 04/24/19 18:56 98 Nasal Cannula 2.00 04/24/19 16:00 36.7 69 20 117/69 (85) 93 Nasal Cannula 2.00 04/24/19 14:54 95 Nasal Cannula 2.00 04/24/19 13:00 88 04/24/19 11:17 36.0 63 22 128/62 (84) 94 Nasal Cannula 2.00 04/24/19 10:39 94 Nasal Cannula 2.00 04/24/19 08:00 Nasal Cannula 2.00 I & O 04/25/19 07:00 Intake Total 1960 ml Output Total 100 ml Balance 1860 ml Height & Weight Height: '" Weight: lbs. oz. kg; 42.64 BMI Method: General Appearance: No Apparent Distress, Anxious HEENT: No Scleral Icterus (L), No Scleral Icterus (R) Neck: Normal Inspection, Supple Respiratory: No Accessory Muscle Use, No Respiratory Distress, Wheezing Cardiovascular: No Murmur, Irregularly Irregular Capillary Refill: Less Than 3 Seconds Extremity: No Calf Tenderness, No Pedal Edema Neurologic/Psychiatric: Alert, Oriented x3 Skin: Normal Color Assessment/Plan Assessment/Plan COPDAE - prednisone 40mg daily -Prednisone taper upon discharge -SVNS Q 4 , Advair -Will need 2 liters of oxygen upon discharge Resolving PNA -S/P abx -No leukocytosis, no fever -Agree with holding off on further Abx at this point CP -Cardiology consulted -Stress test was cancelled secondary to SOB A-fib HTN Tobacco abuse -Education h/o alcohol abuse Recommended continued cessation BRIANNA NELSON DO Apr 25, 2019 07:55
[2019-04-25] MEDS: APIXABAN 5 MG (ELIQUIS) TABLET PO SCH ×2 (08:08→21:39)
[2019-04-25] MEDS: DILTIAZEM 120 MG (CARDIZEM CD) CAP PO SCH (08:08)
[2019-04-25] MEDS: ASPIRIN 325 MG (5 GR) TABLET PO SCH (08:08)
[2019-04-25 08:30] VITALS: BP 138/75
[2019-04-25] MEDS: RT-ADVAIR HFA 115/21 MCG PER PUFF IH SCH ×2 (10:27→18:23)
[2019-04-25 11:46] VITALS: BP 126/58
--- NOTE | 2019-04-25 11:47 | Progress Note - Hospitalist ---
Subjective HPI/CC On Admission Date Seen by Provider: Apr 25, 2019 Time Seen by Provider: 11:45 Pt is a 68yoCM who presented to the ER due to SOB. he states this has been going on for a few days and he was started on anabiotic by his doctor at the [place]. Despite this he has not improved and he has been using his albuterol every 2 hours. He does not know the diagnosis of COPD but he has been told he is being worked up for this. He has a long history of smoking and has been working on quitting cutting down from a pack per day to one cigarette every couple of days. He was treated with multiple breathing treatments and started on prednisone and despite this only had minimal improvement and was admitted due to COPD exacerbation. He did complain of some chest pain as well and troponin were done and were negative 3. He received aspirin in the emergency room. Subjective/Events-last exam Pt reports feeling much better today. Going in and out of a-fib still. Asymptomatic. Plan for cath tomorrow per patient. Objective Exam Vital Signs Vital Signs Date Time Temp Pulse Resp B/P (MAP) Pulse Ox O2 Delivery O2 Flow Rate FiO2 04/25/19 10:35 Room Air 04/25/19 10:28 92 04/25/19 08:30 36.5 71 20 138/75 (96) 2.00 04/21/19 08:09 21 Capillary Refill : Less Than 3 SecondsLess Than 3 Seconds General Appearance: No Apparent Distress, Anxious, Obese Respiratory: No Accessory Muscle Use, Wheezing (improved) Cardiovascular: Regular Rate, Rhythm, No Murmur Neurologic/Psychiatric: Alert, Oriented x3 Skin: Tattoos/Piercings Results/Procedures Lab Patient resulted labs reviewed. Imaging: Reviewed Imaging Report Assessment/Plan Assessment and Plan Assess & Plan/Chief Complaint COPD Exacerbation Recent PNA Continue Prednisone and SVNs Home oxygen study reveals 2lpm need Pulm consulted, appreciate recs Much improved from respiratory standpoint HTN A-fib Chest pain Stress test today- reversible ischemia noted (yesterday's note contains error that it was negative)- plan for cath tomorrow Cardizem for rate, Eliquis for stroke ppx Echo reveals preserved EF with grade 2 diastolic dysfunction Cardiology consulted, appreciate recs- discussed with Dr Callaway yesterday- possible NINFA cardioversion if remains in a-fib Tobacco abuse h/o alcohol abuse Recommended continued cessation Diagnosis/Problems Diagnosis/Problems (1) Atrial fibrillation Status: Acute Qualifiers: Atrial fibrillation type: paroxysmal Qualified Codes: I48.0 - Paroxysmal atrial fibrillation (2) Tobacco abuse Status: Acute (3) Alcohol abuse Status: Acute (4) COPD with acute exacerbation Status: Acute (5) Chest pain Status: Acute Qualifiers: Chest pain type: chest pain on breathing Qualified Codes: R07.1 - Chest pain on breathing Clinical Quality Measures DVT/VTE Risk/Contraindication: Risk Factor Score Per Nursin RFS Level Per Nursing on Admit: 4+=Very High LAWANDA HELMS MD Apr 25, 2019 11:47
--- NOTE | 2019-04-25 15:47 | Cardiology Progress Note ---
Cardiology SOAP Progress Note Subjective: Still has shortness of breath. Objective: I&O/Vital Signs 04/25/19 04/25/19 04/25/19 04/25/19 04:13 07:00 08:00 08:30 Temp 36.6 36.5 Pulse 58 65 71 Resp 22 20 B/P (MAP) 115/68 (84) 138/75 (96) Pulse Ox 95 93 95 O2 Delivery Nasal Cannula Nasal Cannula Nasal Cannula O2 Flow Rate 2.00 2.00 2.00 04/25/19 04/25/19 04/25/19 04/25/19 10:28 10:35 11:46 13:00 Temp 36.6 Pulse 81 77 Resp 22 B/P (MAP) 126/58 (80) Pulse Ox 92 95 O2 Delivery Room Air Room Air Nasal Cannula O2 Flow Rate 2.00 04/25/19 14:58 Pulse Ox 93 O2 Delivery Nasal Cannula O2 Flow Rate 2.00 04/25/19 00:00 Intake Total 1460 ml Output Total 100 ml Balance 1360 ml Constitutional: appears stated age, AAO x 3, well-developed, well-nourished Respiratory: chest is bilaterally symmetric, wheezing, other (course breathing bilaterally. No active wheezing.) Cardiovascular: regular rate-rhythm, S1 and S2 Gastrointestional: soft, audible bowel sounds; No spleenomegaly Extremities: normal range of motion, non-tender, normal inspection; No clubbing, No cyanosis; no lower extremity edema bilateral; No significant edema Neurologic/Psychiatric: no motor/sensory deficits, alert, normal mood/affect, oriented x 3, power is 5/5 both on sides Skin: normal color, warm/dry; No rash, No ulcerations Results/Procedures: Labs Microbiology 04/21/19 Blood Culture - Preliminary, Resulted No growth A/P: Assessment/Dx: COPD exacerbation, Acute respiratory failure, Possible mild diastolic congestive heart failure, Chest pain, abnormal nuclear stress test, Active smoking. Plan: COPD exacerbation, defer to the primary team. Acute respiratory failure, due to COPD exacerbation. Possible mild diastolic congestive heart failure, minimally elevated BNP. unlikely significant congestive heart failure. Echocardiogram 04/21/2019 shows normal LV function. Concentric LVH. Moderate d iastolic dysfunction. Chest pain, serial troponin negative. Dobutamine nuclear stress test done 04/23/2019 showed evidence of apical ischemia. Coronary angiography is recommended. Informed consent was taken. Since the patient still has mild respiratory distress, I have tentatively scheduled it on 04/26/2019. Active smoking. Strongly suggested to not restart smoking. Thank you for your consultation. Please call me if you have any questions. German Callaway MD, FACP, FACC, FSCAI, FHRS, CCDS Interventional Cardiology Cardiac Electrophysiology Vascular Medicine and Endovascular Interventions Harriet CALLAWAY MD Apr 25, 2019 15:47
[2019-04-25 17:00] VITALS: BP 128/75
[2019-04-25 20:15] VITALS: BP 135/71
--- NOTE | 2019-04-25 21:40 | NUR ---
CALLED DR. COATES AND INQUIRED WHETHER OR NOT HE WANTED PATIENT'S ELIQUIS HELD BECAUSE OF HEART CATH TOMORROW. RECEIVED ORDER TO HOLD ELIQUIS.
[2019-04-26] VITALS (14 sets, daily range): BP systolic 128–163; BP diastolic 64–97
[2019-04-26] MEDS: RT-ALBUTEROL/IPRATROPIUM 3 ML (DUONEB) VIAL INH SCH ×5 (03:19→21:32)
[2019-04-26] MEDS: predniSONE 20 MG TAB PO SCH (06:02)
[2019-04-26] MEDS ORDERED: NS IV 1000 ML 3,000 ML ONE (07:10)
[2019-04-26] MEDS ORDERED: LIDOCAINE 1% INJ 20 ML 20 ML VIAL ONE (07:10)
[2019-04-26] MEDS ORDERED: HEParin 1000 UNIT/ML (10ML VIAL) FOR BOLUS ONE (07:10)
[2019-04-26] MEDS: RT-ADVAIR HFA 115/21 MCG PER PUFF IH SCH ×2 (07:17→18:28)
[2019-04-26] MEDS: ASPIRIN 325 MG (5 GR) TABLET PO SCH (08:35)
[2019-04-26] MEDS: DILTIAZEM 120 MG (CARDIZEM CD) CAP PO SCH (08:35)
--- NOTE | 2019-04-26 11:15 | Progress Note - Hospitalist ---
Subjective HPI/CC On Admission Date Seen by Provider: Apr 26, 2019 Time Seen by Provider: 08:10 Pt is a 68yoCM who presented to the ER due to SOB. he states this has been going on for a few days and he was started on anabiotic by his doctor at the [facility]. Despite this he has not improved and he has been using his albuterol every 2 hours. He does not know the diagnosis of COPD but he has been told he is being worked up for this. He has a long history of smoking and has been working on quitting cutting down from a pack per day to one cigarette every couple of days. He was treated with multiple breathing treatments and started on prednisone and despite this only had minimal improvement and was admitted due to COPD exacerbation. He did complain of some chest pain as well and troponin were done and were negative 3. He received aspirin in the emergency room. Subjective/Events-last exam He reports feeling well this morning. He denies any shortness of breath or cough. He denies any fevers or chills. He denies any chest pain. He denies any abdominal pain, nausea, vomiting, or diarrhea. Objective Exam Vital Signs Vital Signs Date Time Temp Pulse Resp B/P (MAP) Pulse Ox O2 Delivery O2 Flow Rate FiO2 04/26/19 08:00 36.7 79 18 148/69 (95) 94 Nasal Cannula 2.00 04/21/19 08:09 21 Capillary Refill : Less Than 3 SecondsLess Than 3 Seconds General Appearance: No Apparent Distress, WD/WN HEENT: PERRL/EOMI, Pharynx Normal Neck: Normal Inspection, Supple Respiratory: Lungs Clear, Normal Breath Sounds, No Respiratory Distress Cardiovascular: Regular Rate, Rhythm, No Edema, No Murmur Gastrointestinal: Normal Bowel Sounds, Non Tender, Soft Extremity: Normal Inspection, Non Tender, No Pedal Edema Neurologic/Psychiatric: Alert, Oriented x3, No Motor/Sensory Deficits, Normal Mood/Affect Skin: Normal Color, Warm/Dry Results/Procedures Lab Patient resulted labs reviewed. Imaging: Reviewed Imaging Report Assessment/Plan Assessment and Plan Assess & Plan/Chief Complaint COPD with acute exacerbation Recent PNA Chronic hypoxic respiratory failure -Continue Prednisone and SVNs -Repeat home oxygen study -Pulm consulted, appreciate recs HTN A-fib Chest pain -Stress test positive -Planning for left heart catheterization today -Cardizem for rate, Eliquis for stroke ppx -Echo reveals preserved EF with grade 2 diastolic dysfunction -Cardiology consulted, appreciate recs -Possible NINFA cardioversion Tobacco abuse h/o alcohol abuse Diagnosis/Problems Diagnosis/Problems (1) Chest pain Status: Acute Qualifiers: Chest pain type: chest pain on breathing Qualified Codes: R07.1 - Chest pain on breathing (2) Atrial fibrillation Status: Acute Qualifiers: Atrial fibrillation type: paroxysmal Qualified Codes: I48.0 - Paroxysmal atrial fibrillation (3) COPD with acute exacerbation Status: Acute Clinical Quality Measures DVT/VTE Risk/Contraindication: Risk Factor Score Per Nursin RFS Level Per Nursing on Admit: 4+=Very High PRANAV KING MD Apr 26, 2019 11:14
--- NOTE | 2019-04-26 12:17 | Cardiology Progress Note ---
Cardiology SOAP Progress Note Subjective: Mild shortness of breath, No chest pain. Objective: I&O/Vital Signs 04/26/19 04/26/19 04/26/19 04/26/19 00:42 03:20 03:40 07:00 Temp 36.6 Pulse 67 55 56 Resp 22 B/P (MAP) 129/67 (87) Pulse Ox 97 97 O2 Delivery Nasal Cannula Nasal Cannula O2 Flow Rate 2.00 2.00 04/26/19 04/26/19 04/26/19 07:14 08:00 11:49 Temp 36.7 36.4 Pulse 79 79 Resp 18 20 B/P (MAP) 148/69 (95) 156/91 (112) Pulse Ox 95 94 95 O2 Delivery Nasal Cannula Nasal Cannula Nasal Cannula O2 Flow Rate 2.00 2.00 2.00 04/26/19 00:00 Intake Total 1589 ml Output Total 1 ml Balance 1588 ml Constitutional: appears stated age, AAO x 3, well-developed, well-nourished Respiratory: chest is bilaterally symmetric, wheezing, other (course breathing bilaterally. No active wheezing.) Cardiovascular: regular rate-rhythm, S1 and S2 Gastrointestional: soft, audible bowel sounds; No spleenomegaly Extremities: normal range of motion, non-tender, normal inspection; No clubbing, No cyanosis; no lower extremity edema bilateral; No significant edema Neurologic/Psychiatric: no motor/sensory deficits, alert, normal mood/affect, oriented x 3, power is 5/5 both on sides Skin: normal color, warm/dry; No rash, No ulcerations Results/Procedures: Labs Microbiology 04/21/19 Blood Culture - Preliminary, Resulted No growth A/P: Assessment/Dx: COPD exacerbation, Acute respiratory failure, Possible mild diastolic congestive heart failure, Chest pain, abnormal nuclear stress test, Active smoking. Plan: COPD exacerbation, defer to the primary team. Acute respiratory failure, due to COPD exacerbation. Possible mild diastolic congestive heart failure, minimally elevated BNP. unlikely significant congestive heart failure. Echocardiogram 04/21/2019 shows normal LV function. Concentric LVH. Moderate diastolic dysfunction. Chest pain, serial troponin negative. Dobutamine nuclear stress test done 020 showed evidence of apical ischemia. Coronary angiography is recommended. Informed consent was taken. Since the patient still has mild respiratory distress, I have tentatively scheduled it on 04/26/2019. Active smoking. Strongly suggested to not restart smoking. Thank you for your consultation. Please call me if you have any questions. German Callaway MD, FACP, FACC, FSCAI, FHRS, CCDS Interventional Cardiology Cardiac Electrophysiology Vascular Medicine and Endovascular Interventions Harriet CALLAWAY MD Apr 26, 2019 12:17
[2019-04-26] MEDS ORDERED: fentaNYL INJECTION 100 MCG/2 ML AMP ONE (12:58)
[2019-04-26] MEDS ORDERED: MIDAZOLAM 5 MG/5 ML (VERSED) VIAL ONE (12:58)
--- NOTE | 2019-04-26 13:05 | NUR ---
SPO2 DROPPED TO 87% ON ROOM AIR WITH EXERTION. PT REQUIRED O2 @ 3 LPM TO STAY ABOVE 90% WITH EXERTION. Addendum: 04/26/19 at 1326 by KAREN BECKFORD RT Amended: Links added.
--- NOTE | 2019-04-26 14:30 | NUR ---
TO MACHINIST JOB SETTER.
[2019-04-26] MEDS ORDERED: VERAPAMIL 5 MG/2 ML (CALAN) VIAL IV ONE (14:37)
[2019-04-26] MEDS ORDERED: NITRO DRIP 25000 MCG/D5W 250 ML IV ONE (14:37)
--- NOTE | 2019-04-26 15:23 | Cardiac Procedure Note-CS/ASA ---
Pre-Procedure Note Pre-Op Procedure Note H&P Reviewed The H&P was reviewed, patient examined and no changes noted. Date H&P Reviewed: Apr 26, 2019 Time H&P Reviewed: 11:00 Conscious Sedation Pre-Proced Time 11:00 ASA Score 3 For ASA 3 and 4: Consider anesthesia and medical clearance. Also, for patients with a history of failed moderate sedation consider anesthesia. Airway Lungs Heart ASA score ASA 1: a normal healthy patient ASA 2: a patient with a mild systemic disease (mid diabetes, controlled hypertension, obesity ASA 3: a patient with a severe systemic disease that limits activity (angina, COPD, prior Myocardial infarction) ASA 4: a patient with an incapacitating disease that is a constant threat to life (CHF, renal failure) ASA 5: a moribund patient not expected to survive 24 hrs. (ruptured aneurysm) ASA 6: a declared brain- patient whose organs are being harvested. For emergent operations, add the letter E after the classification Mallampati Classification Grade 1 Sedation Plan Analgesia, Amnesia, Plan communicated to team members, Discussed options with patient/fam, Discussed risks with patient/fam The patient is an appropriate candidate to undergo the planned procedure, sedation, and anesthesia. The patient immediately re-assessed prior to indication. Harriet COATES MD Apr 26, 2019 15:23
--- NOTE | 2019-04-26 15:26 | Coronary Angiography Report ---
Coronary Angiography Report DATE OF PROCEDURE: 04/26/19 INDICATION: Chest pain, abnormal nuclear stress test. PREOPERATIVE DIAGNOSIS: Chest pain, abnormal nuclear stress test. POSTOPERATIVE DIAGNOSIS: Patent epicardial coronary arteries. HISTORY: This is a 68-year-old gentleman with history of active smoking. He presented with significant shortness of breath and chest pain. Shortness of breath was due to significant COPD exacerbation. Once his shortness of breath improved, and nuclear stress test was performed which was abnormal. Therefore, the patient was scheduled for coronary angiography. PROCEDURES PERFORMED: 1.Coronary angiography. 2.Left heart catheterization. 3. Aortic arch angiogram: Medical necessity, to rule out aortic aneurysm/dissection as a cause of severe chest pain in a patient with negative CAD. COMPLICATIONS: None. SPECIMENS: None. ESTIMATED BLOOD LOSS: 10 mL ANESTHESIA: Conscious sedation ANTICOAGULATION: IV heparin CONTRAST: 85 mL. FLUOROSCOPY: 2.6 minutes. FLOUROSCOPY DOSE: 925 mgy. PROCEDURE DETAILS: The patient is a 68 male and was brought to the quality lab technician after informed consent was taken. All the risks and complications were explained in detail; this included the risk of bleeding, vascular damage, stroke, ND and even . The patient was draped and prepped in the usual sterile fashion. Access was gained in the right radial artery with a 6 Sinhala sheath. Coronary angiography and left heart catheterization was performed with the Natoma catheter. FINDINGS: 1.Left main: Patent. 2.LAD: Patent. 3.Left circumflex artery: Patent. 4.RCA: Patent. 5.Left heart catheterization: LV pressure 128/6 mmHg. LVEDP 15 mmHg. Aortic pressure 127/84 mmHg. Normal LV function with no wall motion abnormalities. No gradient across the aortic valve. 6. Aortic arch angiogram: No evidence of aortic aneurysm or dissection. Patent proximal segments of the great arteries. CONCLUSIONS: 1. Patent epicardial coronary arteries. 2. Continue primary prevention measures. 3. Patient was educated on smoking cessation. German Callaway MD, FACP, FACC, [facility] Interventional Cardiology Harriet CALLAWAY MD Apr 26, 2019 15:26
[2019-04-26] MEDS ORDERED: PATIENT MAY USE OWN MEDS, ALL PO SCH (15:30)
--- NOTE | 2019-04-26 15:40 | NUR ---
REPORT TO ICU ADÁN PT RECOVERING POST CATH IN ICU.
[2019-04-26] MEDS: NS IV 1000 ML 1,000 ML IV SCH (16:16)
--- NOTE | 2019-04-26 17:15 | Cardiology Stress Test Report ---
Stress Test Report Type of [place] Stress Test: Test Type: DOBUTAMINE Date of Procedure/Referring: Date of Procedure: Apr 23, 2019 PCP Tavia Méndez MD Admitting Physician No,Local Physician Indications: Chest pain Baseline Heart Rate: 82 Baseline Blood Pressure: Blood Pressure Systolic: 128 Blood Pressure Diastolic: 80 Baseline EKG: Baseline EKG: sinus rhythm Summary & Conclusion: Summary: The patient was brought to the stress lab after informed consent was taken. On 04/22/2019 the patient was brought in for a Lexiscan nuclear stress test. Initial images were done. However patient were having significant wheezing therefore Lexiscan stress test was postponed. We performed dobutamine stress test on 04/23/2019. 96 percent of maximum predicted heart rate response was achieved. Maximum heart rate was 144 BPM. Initial heart rate was 84 bpm and blood pressur e of 104/73 mmHg. Baseline EKG showed sinus rhythm. Patient did not have any chest pain, arrhythmias. Nonsignificant ST changes in leads 2, 3, V5, V6. 10.42 mCi of Myoview were given for rest imaging and 30.0 mCi of sestamibi given for stress imaging. Transient ischemic dilatation score 0.93, EF 57 percent. Normal wall motion. Vxyi-ji-heusgqzh apical reversible defect. Conclusion: Pharmacological stress test was negative for ischemia. Normal LV function with no wall motion abnormalities. Popz-xb-aegpecfc apical reversible defect, coronary angiography is recommended. Harriet COATES MD Apr 26, 2019 17:15
--- NOTE | 2019-04-26 18:28 | NUR ---
REC'D PER WC FROM ICU. LARGE BANDAID D/I ON RT WRIST WITH SL EDEMA NOTED TO WRIST. D/I. DENIES DISCOMFORT. IVF INFUSING PER GRAVITY.
--- NOTE | 2019-04-26 19:40 | NUR ---
CALLED DR. COATES AND RECEIVED ORDER TO RESUME NICHOLAS JACQUES.
[2019-04-26] MEDS: APIXABAN 5 MG (ELIQUIS) TABLET PO SCH (21:20)
[2019-04-27] MEDS: NS IV 1000 ML 1,000 ML IV SCH ×2 (01:26→09:48)
[2019-04-27] MEDS: RT-ALBUTEROL/IPRATROPIUM 3 ML (DUONEB) VIAL INH SCH ×5 (02:01→19:54)
[2019-04-27 03:53] VITALS: BP 133/70
[2019-04-27] MEDS: RT-ADVAIR HFA 115/21 MCG PER PUFF IH SCH ×2 (06:19→19:55)
[2019-04-27] MEDS: predniSONE 20 MG TAB PO SCH (06:31)
[2019-04-27 09:00] VITALS: BP 136/70
[2019-04-27] MEDS ORDERED: FLUT12AE4 IH (09:04)
[2019-04-27] MEDS ORDERED: DILT120C94 PO (09:04)
[2019-04-27] MEDS ORDERED: APIX5TAB PO (09:04)
[2019-04-27] MEDS: APIXABAN 5 MG (ELIQUIS) TABLET PO SCH ×2 (09:27→19:48)
[2019-04-27] MEDS: ASPIRIN 325 MG (5 GR) TABLET PO SCH (09:27)
[2019-04-27] MEDS: DILTIAZEM 120 MG (CARDIZEM CD) CAP PO SCH (09:28)
--- NOTE | 2019-04-27 12:19 | Discharge Summary ---
Discharge Summary Hospital Course Was the Problem List Reviewed?: Yes Problems/Dx: (1) COPD with acute exacerbation Status: Acute (2) Chest pain Status: Resolved Qualifiers: Qualified Codes: R07.1 - Chest pain on breathing (3) Atrial fibrillation Status: Acute Qualifiers: Qualified Codes: I48.0 - Paroxysmal atrial fibrillation Hospital Course Date of Admission: Apr 21, 2019 at 03:40 Admission Diagnosis : COPD with acute exacerbation Family Physician/Provider: Tan Mcdaniel Date of Discharge: 04/27/19 Discharge Diagnosis: COPD with acute exacerbation Hospital Course: Narendra Asif is a 68-year-old male who presented with shortness of breath. He is followed at the [facility]. He is unsure of the diagnosis of COPD but says he is being worked up for it. He is a current smoker. He was admitted with an acute exacerbation of COPD. Pulmonology was consulted and will follow up with him as an outpatient. He was treated with a course of steroids. He was started on inhalers. He also had chest pain and the underwent a stress test which was positive and a subsequent left heart catheterization which revealed normal coronary arteries. There was concern for atrial fibrillation though this was unclear. Cardiology was consulted and he was started on Cardizem and Eliquis. He will be discharged with an event monitor. He will follow up with cardiology. He was intermittently requiring supplemental oxygen and an oxygen evaluation was performed and revealed a 3 L need during exertion. Labs and Pending Lab Test: Microbiology 04/21/19 Blood Culture - Final, Complete No growth Home Meds Active Advair Hfa 115-21 Mcg Inhaler (Fluticasone/Salmeterol) 12 Gm Hfa.aer.ad 2 Puff IH BID@,20 90 Days Diltiazem 24Hr Cd (Diltiazem HCl) 120 Mg Cap.er.24h 120 Mg PO DAILY 90 Days Eliquis (Apixaban) 5 Mg Tablet 5 Mg PO BID 90 Days Reported Cipro (Ciprofloxacin HCl) 500 Mg Tablet 500 Mg PO BID 10 Days 10 DAY SUPPLY FILLED 04-20-19 Tylenol Extra Strength (Acetaminophen) 500 Mg Tablet 500-1,000 Mg PO Q4H PRN Amlodipine Besylate 10 Mg Tablet 5 Mg PO DAILY LAST FILLED #45 12-08-18 TAKES 1/2 (10MG) TABLET Nicotine Gum (Nicotine Polacrilex) 4 Mg Gum 4 Mg BC Q1H PRN CHEW GUM UTNIL TINGLING SENSATION, THEN PARK THE GUM BETWEEN CHEEK AND GUM AREA. REPEAT (RE-CHEW) WHEN TINGLING STOPS. DON'T EXCEED 24 PIECES PER DAY Potassium Chloride 20 Meq Tablet.er 10 Meq PO DAILY TAKES 1/2 (20MEQ) TABLET Proair Hfa (Albuterol Sulfate) 1 Puff Puff 2 Puff IH BID PRN 1 PUFF = 90 MCG Lisinopril-Hctz 10-12.5 mg Tab (Lisinopril/Hydrochlorothiazide) 1 Each Tablet 1 Tab PO DAILY LAST FILLED #90 12-08-18 Assessment/Pt Instructions Take medications as prescribed. Establish with a primary care physician. Return with worsening shortness of breath, chest pain, or if you feel like you're getting worse. Discharge Planning: <30 minutes discharge planning Discharge Instructions Discharge Diet: No Restrictions, Cardiac Diet Activity as Tolerated: Yes Discharge Physical Examination Vital Signs Vital Signs Date Time Temp Pulse Resp B/P (MAP) Pulse Ox O2 Delivery O2 Flow Rate FiO2 04/27/19 10:19 95 Nasal Cannula 2.00 04/27/19 09:00 36.4 73 24 136/70 (92) 04/21/19 08:09 21 General Appearance: No Apparent Distress, WD/WN HEENT: PERRL/EOMI, Pharynx Normal Respiratory: Lungs Clear, Normal Breath Sounds, No Respiratory Distress Cardiovascular: No Edema, Irregularly Irregular Gastrointestinal: Normal Bowel Sounds, Non Tender, Soft Extremity: Normal Inspection, Non Tender, No Pedal Edema Skin: Normal Color, Warm/Dry Neurologic/Psychiatric: Alert, Oriented x3, No Motor/Sensory Deficits, Normal Mood/Affect Allergies: Coded Allergies: No Known Drug Allergies (Unverified , 07/26/11) Discharge Summary Date of Admission Apr 21, 2019 at 03:40 Date of Discharge Discharge Date: Apr 24, 2019 Admission Diagnosis COPD Exacerbation Discharge Diagnosis COPD with acute exacerbation (1) Chest pain Status: Resolved Qualifiers: Qualified Codes: R07.1 - Chest pain on breathing (2) Atrial fibrillation Status: Acute Qualifiers: Qualified Codes: I48.0 - Paroxysmal atrial fibrillation (3) COPD with acute exacerbation Status: Acute Clinical Quality Measures DVT/VTE Risk/Contraindication: Risk Factor Score Per Nursin RFS Level Per Nursing on Admit: 4+=Very High PRANAV KING MD Apr 27, 2019 12:18
[2019-04-27 12:47] VITALS: BP 153/85
--- NOTE | 2019-04-27 14:14 | NUR ---
CM[facility]SS [facility] from Dr. Nuñez Plan: The patient would return home with transportation from his sister who lives here in town. DME: The [facility] [place] However, to get there oxygen it comes through the [facility]. CM/SS spoke with respiratory worker Edda through the [facility] who requested room air saturation and exercise oximetry. The information requested was faxed over to ([phone]).
[2019-04-27 16:00] VITALS: BP 142/77
--- NOTE | 2019-04-27 16:29 | NUR ---
ARABELLA/MICHELLE spoke with Carly from respiratory [facility]. The on-scallop cutter machine will be here with oxygen around 7:00 p.m. and then deliver the rest of the equipment to his house. The patient called his brother while GEORGE was in the room to set up a bean picker time for the patient. The patients nurse was notified. The patient did not have any other needs at this time.
[2019-04-27 17:45] VITALS: BP 142/77
--- NOTE | 2019-04-27 18:50 | Cardiology Progress Note ---
Cardiology SOAP Progress Note Subjective: Shortness of breath Objective: I&O/Vital Signs 04/27/19 04/27/19 04/27/19 04/27/19 07:00 08:00 09:00 10:19 Temp 36.4 Pulse 64 73 Resp 24 B/P (MAP) 136/70 (92) Pulse Ox 96 95 95 O2 Delivery Nasal Cannula Nasal Cannula Nasal Cannula O2 Flow Rate 2.00 3.00 2.00 04/27/19 04/27/19 04/27/19 04/27/19 12:41 12:47 14:46 16:00 Temp 36.7 36.9 Pulse 67 87 65 Resp 24 22 B/P (MAP) 153/85 (107) 142/77 (98) Pulse Ox 93 95 95 O2 Delivery Nasal Cannula Nasal Cannula Nasal Cannula O2 Flow Rate 3.00 2.00 2.00 04/27/19 17:45 Temp 36.9 Pulse 65 Resp 22 B/P (MAP) 142/77 Pulse Ox 95 O2 Delivery Nasal Cannula O2 Flow Rate 2.00 04/27/19 00:00 Intake Total 1600 ml Output Total 250 ml Balance 1350 ml Constitutional: appears stated age, AAO x 3, well-developed, well-nourished Respiratory: chest is bilaterally symmetric, wheezing, other (course breathing bilaterally. No active wheezing.) Cardiovascular: regular rate-rhythm, S1 and S2 Gastrointestional: soft, audible bowel sounds; No spleenomegaly Extremities: normal range of motion, non-tender, normal inspection; No clubbing, No cyanosis; no lower extremity edema bilateral; No significant edema Neurologic/Psychiatric: no motor/sensory deficits, alert, normal mood/affect, oriented x 3, power is 5/5 both on sides Skin: normal color, warm/dry; No rash, No ulcerations Results/Procedures: Labs Microbiology 04/21/19 Blood Culture - Final, Complete No growth A/P: Assessment/Dx: COPD exacerbation, Acute respiratory failure, Possible mild diastolic congestive heart failure, Chest pain, abnormal nuclear stress test, Active smoking. Plan: COPD exacerbation, defer to the primary team. Acute respiratory failure, due to COPD exacerbation. Possible mild diastolic congestive heart failure, minimally elevated BNP. unlikely significant congestive heart failure. Echocardiogram 04/21/2019 shows normal LV function. Concentric LVH. Moderate diastolic dysfunction. Chest pain, serial troponin negative. Dobutamine nuclear stress test done 04/23/2019 showed evidence of apical ischemia. Coronary angiography shows no significant cad. All EKGs shows Sinus rhythm. No AF. Can discharge Eliquis; Event monitor x 1 month. Active smoking. Strongly suggested to not restart smoking. Thank you for your consultation. Please call me if you have any questions. German Callaway MD, FACP, FACC, FSCAI, FHRS, CCDS Interventional Cardiology Cardiac Electrophysiology Vascular Medicine and Endovascular Interventions Harriet CALLAWAY MD Apr 27, 2019 18:50
[2019-04-27 19:56] VITALS: BP 146/61
--- NOTE | 2019-04-27 20:15 | NUR ---
On-scallop cutter will be here with oxygen. He is to deliver the rest of the equipment to pt house. Pt iv removed. dressing in place. DC INSTRUCTIONS REVIEWED WITH PT. EVEN MONITOR ORDER GIVEN TO PT. PT INFORMED HE NEEDS TO HOSPITAL TOMORROW IN THE MORNING WITH EVENT SHEET TO REGISTRATION. PT STATES UNDERSTANDING. PT TAKEN DOWN STAIR TO RIDE BY [facility] AT THIS TIME.
== END 2019-04-27 20:20 | disposition home or self-care (01) | DRG 190 ==
LOC: EDUNIT# 00:41 → ER 00:43 → 4TH 03:40 → ICU 04-26 15:35 → 4TH 04-26 18:15
PROVIDERS: ADMIT Family Medicine; ATTEND Family Medicine
PROC: 4A023N7 Measurement of Cardiac Sampling and Pressure, Left Heart, Percutaneous Approach (ICD-10-PCS; principal; 2019-04-26)
PROC: B211YZZ Fluoroscopy of Multiple Coronary Arteries using Other Contrast (ICD-10-PCS; 2019-04-26)
PROC: B310YZZ Fluoroscopy of Thoracic Aorta using Other Contrast (ICD-10-PCS; 2019-04-26)
DX: J44.1 Chronic obstructive pulmonary disease with (acute) exacerbation (principal); J96.21 Acute and chronic respiratory failure with hypoxia; I10 Essential (primary) hypertension; I48.0 Paroxysmal atrial fibrillation; I45.10 Unspecified right bundle-branch block; I44.4 Left anterior fascicular block; F17.210 Nicotine dependence, cigarettes, uncomplicated; G25.81 Restless legs syndrome; R07.9 Chest pain, unspecified; F10.10 Alcohol abuse, uncomplicated
CPT/HCPCS: 36221; 36415; 71045; 78452; 80053; 83605; 83880; 84484; 85025; 85610; 85730; 87040; 93005; 93017; 93306; 93458; 94640; 94760; 94761

== ENCOUNTER 2019-04-29 09:23 | Outpatient (RCR) | payer OTHER ==
[~2019-04-29 09:23] MED LIST changes: +ACET-2267 PO; +AMLO10TA7 PO; +APIX5TAB PO; +CIPR-225 PO; +DILT120C88 PO; +FLUT12AE4 IH; +LISI1TAB29 PO; +NICO4GUM31 BC; +POTA-51 PO; +PRED10TA22 PO; +RT-ALBUINH IH
== END 2019-07-28 | disposition home or self-care (01) ==
LOC: CARD 09:23
PROVIDERS: ATTEND Internal Medicine Interventional Cardiology
DX: I49.9 Cardiac arrhythmia, unspecified (principal)

== ENCOUNTER → 2019-06-14 | Outpatient (CLI) | payer OTHER ==
[~2019-06-14] MED LIST changes: +HOLD METFORMIN - RECEIVED CONTRAST 20 ML VIAL IV SCH; +IOHEXOL 350 MG/ML 100 ML (OMNIPAQUE 350) VIAL IV ONE; +NS 100 ML (IVPB) BAG IV ONE; +RT-ALBUTEROL SULF 2.5 MG/3 ML PRE-MIX VIAL INH ONE
[2019-06-14 07:05] LABS: BUN/CREATININE RATIO 17; CREATININE SERUM 1.08 MG/DL (0.60-1.30); GFR ESTIMATED > 60
[2019-06-14 09:23] LABS: ABG BASE EXCESS 1.1 MMOL/L (-2.5-2.5); ABG OXYGEN SATURATION 95 % (94-100); ABG PCO2 41 MMHG (35-45); ABG PH 7.41 (7.37-7.43); ABG PO2 78 MMHG (79-93); ABG TCO2 26.7 MMOL/L (21.0-31.0)
[2019-06-14 09:24] LABS: ALLENS TEST YES-POS; INSPIRED O2 2L; PATIENT TEMP 36.3; VENTILATOR NO
== END ==
LOC: RT 06:35
PROVIDERS: ATTEND Internal Medicine Critical Care Medicine
DX: J44.9 Chronic obstructive pulmonary disease, unspecified (principal); Z99.81 Dependence on supplemental oxygen
CPT/HCPCS: 36415; 36600; 82565; 82805; 84520; 94060; 94640; 94726; 94729

== ENCOUNTER → 2019-06-16 | Outpatient (CLI) | payer OTHER ==
[~2019-06-16] MED LIST changes: +CATHETER FLUSH 10 ML SYR IV PRN; -RT-ALBUTEROL SULF 2.5 MG/3 ML PRE-MIX VIAL INH ONE
--- NOTE | 2019-06-16 08:41 | NUR ---
PT SCHEDULED FOR PULMONARY REHAB EVALUATION; LOOKED UP PT'S FILE TO SEE IF CURRENT PFT IN RECORDS (FOR EVALUATION) AND TO GET MAILING ADDRESS TO SEND PAPERWORK.
[2019-06-16 10:20] LABS: BUN/CREATININE RATIO 15; CREATININE SERUM 0.99 MG/DL (0.60-1.30); GFR ESTIMATED > 60
--- NOTE | 2019-06-16 11:01 | Diagnostic Imaging Report ---
PROCEDURE: CT chest with contrast only. TECHNIQUE: Multiple contiguous axial images were obtained through the chest after administration of intravenous contrast. Auto Exposure Controls were utilized during the CT exam to meet ALARA standards for radiation dose reduction. INDICATION: COPD, shortness of breath. COMPARISON: August 06, 2012. FINDINGS: Borderline prominent mediastinal lymph nodes are identified, though these do not appear significantly changed since 2012. Mild scattered vascular calcifications. No aneurysmal dilatation of the thoracic aorta. The heart is within normal limits in size. No pericardial effusion. No pleural effusion. No pneumothorax. Mild background emphysematous changes, particularly paraseptal emphysematous changes. Minimal dependent atelectasis. The lungs are clear of focal pulmonary opacity. No significant central pulmonary embolus. The visualized upper abdomen is unremarkable. Scattered osseous degenerative changes without acute osseous abnormality. IMPRESSION: Mild background emphysematous changes. Additional stable findings as described above without superimposed focal pulmonary infiltrate. Dictated by: Dictated on workstation # [id number]
== END ==
LOC: RAD 09:44
PROVIDERS: ATTEND Internal Medicine Critical Care Medicine
DX: Z01.812 Encounter for preprocedural laboratory examination (principal); J43.9 Emphysema, unspecified
CPT/HCPCS: 36415; 71260; 82565; 84520

== ENCOUNTER 2019-07-07 08:55 | Outpatient (RCR) | payer OTHER ==
[~2019-07-07 08:55] MED LIST changes: -CATHETER FLUSH 10 ML SYR IV PRN; -HOLD METFORMIN - RECEIVED CONTRAST 20 ML VIAL IV SCH; -IOHEXOL 350 MG/ML 100 ML (OMNIPAQUE 350) VIAL IV ONE; -NS 100 ML (IVPB) BAG IV ONE
== END 2019-10-05 | disposition home or self-care (01) ==
LOC: PULM 08:55
PROVIDERS: ATTEND Internal Medicine Critical Care Medicine
DX: J44.9 Chronic obstructive pulmonary disease, unspecified (principal); Z53.8 Procedure and treatment not carried out for other reasons
CPT/HCPCS: 99211

== ENCOUNTER → 2020-07-31 | Outpatient (CLI) | payer OTHER ==
[~2020-07-31] MED LIST changes: +AMLO-251 PO; -AMLO10TA7 PO
--- NOTE | 2020-07-31 10:01 | Diagnostic Imaging Report ---
TIME OF EXAM: 07/31/2020 at 9:11 AM. REASON FOR EXAM: Lung cancer screening. 57 pack year smoking history. COMPARISON: 06/16/2019. TECHNIQUE: Low Dose CT helical images obtained through the chest. Sagittal and coronal reformats were obtained and reviewed. Dose reduction techniques were utilized. CTDI vol: 2.22 mGy FINDINGS: Nodules: No suspicious pulmonary nodules are visualized. Lungs: Lung volumes are normal. Centrilobular emphysema is visualized, greatest in the lung apices. No evidence of pulmonary fibrosis. There is no appreciable bronchiectasis. Mild bronchial wall thickening is seen. No pulmonary mass or consolidation is present. No central endoluminal airway lesion is seen. Heart and Mediastinum: Heart size is within normal limits. Small amount of coronary calcifications are present. Aortic atherosclerosis is present without aneurysm. No pericardial effusion is present. No axillary, supraclavicular, mediastinal, internal mammary, or hilar adenopathy is present by CT size criteria. Normal size and attenuation of the visualized thyroid gland. Pleura: Normal pleural spaces. No effusion or pneumothorax. No pleural nodularity or mass. Abdomen: Included views of the upper abdomen demonstrate no acute abnormality. Bones and soft tissues: Regional skeletal and soft tissue structures are age-appropriate. IMPRESSION: 1. No suspicious pulmonary nodules. Recommend continued surveillance with low-dose chest CT in 12 months. 2. No thoracic lymphadenopathy. RESULT CODE: Category 1: Negative FOLLOWUP: Continue annual screening with LDCT in 12 months Dictated by: Dictated on workstation # [id number]
== END ==
LOC: RAD 08:41
PROVIDERS: ATTEND Nurse Practitioner Family
DX: Z12.2 Encounter for screening for malignant neoplasm of respiratory organs (principal); Z87.891 Personal history of nicotine dependence
CPT/HCPCS: 71271

== ENCOUNTER 2020-08-10 05:29 | Outpatient (RCR) | payer OTHER ==
[~2020-08-10] VITALS: Ht 188 cm; Wt 139.7 kg
[~2020-08-10 05:29] MED LIST changes: +FURO-124 PO; +GABA300S2 PO; +TRZ50T PO
== END 2020-08-10 09:46 | disposition home or self-care (01) ==
LOC: PREOP 05:29
PROVIDERS: ATTEND Surgery
DX: K63.5 Polyp of colon (principal); K31.7 Polyp of stomach and duodenum
CPT/HCPCS: 87635

== ENCOUNTER 2020-08-14 09:09 | Day surgery (SDC) | payer OTHER ==
[~2020-08-14] VITALS: Ht 188 cm; Wt 140.0 kg
[2020-08-14] VITALS (8 sets, daily range): BP systolic 144–183; BP diastolic 74–99
[2020-08-14] MEDS ORDERED: LACTATED RINGERS 1,000 ML IV ONE (09:13)
[2020-08-14] MEDS ORDERED: LACTATED RINGERS 1,000 ML IV STA (09:24)
[2020-08-14] MEDS ORDERED: HURRICAINE EXT TUBE (BENZOCAINE) XX PRN (09:30)
--- NOTE | 2020-08-14 09:44 | Progress Note-Pre Operative ---
Pre-Operative Progress Note H&P Reviewed The H&P was reviewed, patient examined and no changes noted. Time Seen by Provider: 09:42 Date H&P Reviewed: Aug 14, 2020 Time H&P Reviewed: 09:42 Pre-Operative Diagnosis: Hx of colon polyps, Hx of gastric ulcer BLILY HORTA DO Aug 14, 2020 09:44
[2020-08-14] MEDS ORDERED: MIDAZOLAM 2 MG/2 ML (VERSED) VIAL ONE (11:13)
[2020-08-14] MEDS ORDERED: PROPOFOL INJECTION 50 ML IV ONE ×2 (11:13→11:28)
--- NOTE | 2020-08-14 11:48 | Progress Note-Post Operative ---
Post-Operative Progess Note Surgeon (s)/Tax Appraiser (s) Surgeon BILLY HORTA DO Tax Appraiser: none Pre-Operative Diagnosis Hx of colon polyps, Hx of gastric ulcer Post-Operative Diagnosis Gastritis Hiatal hernia Esophagitis Polyps diverticula int hemorrhoids Procedure & Operative Findings Date of Procedure 08/14/20 Procedure Performed/Findings EGD with bx Colon with hot bx Anesthesia Type IV sedation by ORTHODONTIST Estimated Blood Loss Estimated blood loss (mL): scant Specimens/Packing Specimens Removed antral bx body of stomach bx GE jxn bx cecal polyp asc colon polyp x 2 desc colon polyp sigmoid polyp BILLY HORTA DO Aug 14, 2020 11:48
--- NOTE | 2020-08-14 11:49 | Endoscopy Discharge Instruct ---
Endo Procedure/Findings Findings 1.: Hiatal Hernia, Gastritis 2.: Polyp 3.: Diverticulosis 4.: Internal Hemorrhoids Discharge Instructions - Activity: You might feel a little sleepy until tomorrow. This is due to the medicine you received to relax you. Until tomorrow, you should: NOT drive a car, operate machinery or power tools. NOT drink any alcoholic beverages. NOT make any important decisions or sign importortant papers. Do not return to work until tomorrow, unless otherwise instructed. Resume previous activities tomorrow. Diet: Start by taking liquids. If you tolerate liquids, advance to solid food. 1.: EGD in 3 years 2.: Colonscopy in 3 years Notify Physician - If you experience excessive bleeding, unusual abdominal pain, fever, or chest pain, contact your doctor immediately. BILLY HORTA DO Aug 14, 2020 11:49
--- NOTE | 2020-08-14 12:40 | Anesthesia-General Post-Op ---
MAC Patient Condition Mental Status/LOC: Same as Preop Cardiovascular: Satisfactory Nausea/Vomiting: Absent Respiratory: Satisfactory Pain: Controlled Complications: Absent Post Op Complications Complications None Follow Up Care/Instructions Patient Instructions None needed. Anesthesiology Discharge Order Discharge Order Patient is doing well, no complaints, stable vital signs, no apparent adverse anesthesia problems. No complications reported per nursing. GARRY MADDEN CRNA Aug 14, 2020 12:40
--- NOTE | 2020-08-15 13:34 | OPERATIVE REPORT ---
DATE OF SERVICE: 08/14/2020 PREOPERATIVE DIAGNOSES: History of colon polyps and history of gastric ulcer. POSTOPERATIVE DIAGNOSES: Gastritis, hiatal hernia as well as esophagitis and colon polyps, diverticula, and internal hemorrhoids. PROCEDURES PERFORMED: 1. EGD with biopsy. 2. Colonoscopy with hot biopsy. SURGEON: Jaylen Yao DO. QA TECH: None. ANESTHESIA: IV sedation by the DIRECTOR SHIP. SPECIMEN: Biopsy of the antrum, biopsy of body of the stomach, biopsy of the GE junction and then cecal polyp x2, ascending colon polyp x2, descending colon polyp and sigmoid polyp. BLOOD LOSS: Scant. FLUIDS: Per anesthesia. POSTOPERATIVE CONDITION: Stable. INDICATION FOR PROCEDURE: The patient is a 69-year-old male with history of polyps and gastric ulcers, needed EGD and colonoscopy. FINDINGS: The patient had some gastritis, hiatal hernia and esophagitis and then in the colon, he had multiple polyps as well as some diverticula and internal hemorrhoids. PROCEDURE NOTE: After informed consent was obtained, the patient was brought to the endoscopy suite and placed in the bed in a left lateral decubitus position. He was administered IV sedation by the DIRECTOR SHIP, who then monitored his vitals the entire time, heart rate, blood pressure and pulse ox and the scope was inserted, started with the EGD, placing scope down the mouth through the esophagus into the stomach, noted some mild gastritis, pushed into the duodenum. Duodenum looked fine. Pulled back and did a biopsy of the antrum and then did a biopsy of the body of stomach, retroflexed the scope, saw a small hiatal hernia and then pulled the scope into the GE junction, did a biopsy here, pushed the scope back into the stomach and suctioned all the air out and then took a picture of the hiatal hernia from the esophagus as well as then took a picture of the upper esophagus. Then pulled the scope all the way out. Switched camera, switched gloves, went down below, started the colonoscopy. Pushed all the way in to about 150 cm and able to get to the cecum, took a picture of the appendiceal orifice, noted the ileocecal valve, in the cecum, saw some flat polyps, elected to do a hot biopsy of this, took a couple of biopsies here and then started to slowly withdraw the scope insufflating to look circumferentially at the luna looking the cecum, up the ascending colon. In the ascending colon, saw two small flat polyps, did hot biopsy of these, continued to the hepatic flexure, then down the transverse colon to the splenic flexure, into the descending colon. In the descending colon, again saw a polyp, did another hot biopsy, saw some diverticula in the descending colon as well and then in the sigmoid, found another polyp, did another hot biopsy and then continued down into the rectum, retroflexed in the rectal vault, saw some minimal internal hemorrhoids, took a picture of this and then removed the scope. The patient tolerated the procedure and recovered in the endoscopy suite. Job ID: [id number] DocumentID: [id number] Dictated Date: 08/15/2020 10:07:37 Manager Retention Date: 08/15/2020 13:33:02 Dictated By: JAYLEN YAO DO
== END 2020-08-14 13:00 | disposition home or self-care (01) ==
LOC: ENDO 09:09
PROVIDERS: ATTEND Surgery
DX: D12.0 Benign neoplasm of cecum (principal); D12.2 Benign neoplasm of ascending colon; D12.5 Benign neoplasm of sigmoid colon; K63.5 Polyp of colon; K21.00 Gastro-esophageal reflux disease with esophagitis, without bleeding; K29.50 Unspecified chronic gastritis without bleeding; K44.9 Diaphragmatic hernia without obstruction or gangrene; K57.30 Diverticulosis of large intestine without perforation or abscess without bleeding; K64.8 Other hemorrhoids; I48.91 Unspecified atrial fibrillation; G47.33 Obstructive sleep apnea (adult) (pediatric); J43.9 Emphysema, unspecified; E78.5 Hyperlipidemia, unspecified; I65.23 Occlusion and stenosis of bilateral carotid arteries; I11.0 Hypertensive heart disease with heart failure; I50.32 Chronic diastolic (congestive) heart failure; E66.01 Morbid (severe) obesity due to excess calories; Z68.39 Body mass index [BMI] 39.0-39.9, adult; Z79.899 Other long term (current) drug therapy; Z79.51 Long term (current) use of inhaled steroids; Z79.82 Long term (current) use of aspirin; Z83.3 Family history of diabetes mellitus; Z87.11 Personal history of peptic ulcer disease
CPT/HCPCS: 88305; 88312

== ENCOUNTER 2020-10-02 09:31 | Outpatient (CLI) | payer OTHER ==
[2020-09-27 08:30] LABS: HEMATOCRIT 53 % (40-54); HEMOGLOBIN 17.4 g/dL (13.3-17.7); MEAN CORPUSCULAR HEMOGLOBIN 32 pg (25-34); MEAN CORPUSCULAR HGB CONC 33 g/dL (32-36); MEAN CORPUSCULAR VOLUME 97 fL (80-99); MEAN PLATELET VOLUME 10.9 fL (9.0-12.2); PLATELET COUNT 176 10^3/uL (130-400); WHITE BLOOD COUNT 5.1 10^3/uL (4.3-11.0)
[2020-09-27 08:32] VITALS: BP 145/96
[2020-09-27 08:47] LABS: INR 1.1 (0.8-1.4); PROTHROMBIN TIME PATIENT 14.8 SEC (12.2-14.7)
[~2020-10-02] VITALS: Ht 188 cm; Wt 136.3 kg
[2020-10-02] VITALS (10 sets, daily range): BP systolic 135–159; BP diastolic 75–97
[~2020-10-02 09:31] MED LIST changes: +HYDR-3820 PO; +LIDOCAINE 1% INJ 20 ML 20 ML VIAL INJ ONE; +MIDAZOLAM 2 MG/2 ML (VERSED) VIAL IVP ONE; +NS IV 1000 ML 1,000 ML IV STA; +fentaNYL INJ 100 MCG/2 ML AMP IVP ONE
[2020-10-02] MEDS ORDERED: NS IV 1000 ML 1,000 ML IV STA (09:59)
[2020-10-02] MEDS ORDERED: MIDAZOLAM 2 MG/2 ML (VERSED) VIAL IVP ONE (10:00)
[2020-10-02] MEDS ORDERED: fentaNYL INJ 100 MCG/2 ML AMP IVP ONE (10:00)
[2020-10-02] MEDS ORDERED: LIDOCAINE 1% INJ 20 ML 20 ML VIAL INJ ONE (10:00)
[2020-10-02 10:18] LABS: BASOPHILS % (AUTO) 0 % (0-10); EOSINOPHILS # (AUTO) 0.1 10^3/uL (0.0-0.3); EOSINOPHILS % (AUTO) 3 % (0-10); HEMATOCRIT 52 % (40-54); LYMPHOCYTES # (AUTO) 0.8 10^3/uL (1.0-4.0); LYMPHOCYTES % (AUTO) 17 % (12-44); MEAN CORPUSCULAR HEMOGLOBIN 31 pg (25-34); MEAN CORPUSCULAR HGB CONC 33 g/dL (32-36); MEAN CORPUSCULAR VOLUME 97 fL (80-99); MEAN PLATELET VOLUME 10.6 fL (9.0-12.2); MONOCYTES # (AUTO) 0.5 10^3/uL (0.0-1.0); MONOCYTES % (AUTO) 10 % (0-12); NEUTROPHILS # (AUTO) 3.3 10^3/uL (1.8-7.8); NEUTROPHILS % (AUTO) 70 % (42-75); PLATELET COUNT 162 10^3/uL (130-400); WHITE BLOOD COUNT 4.8 10^3/uL (4.3-11.0)
[2020-10-02 10:51] LABS: INR 1.1 (0.8-1.4); PROTHROMBIN TIME PATIENT 14.5 SEC (12.2-14.7)
[2020-10-02] MEDS ORDERED: GABA300C PO ×2 (10:56)
--- NOTE | 2020-10-02 12:40 | Pre-Op Note & Conscious Sedat ---
Pre-Operative Progress Note H&P Reviewed The H&P was reviewed, patient examined and no changes noted. Date H&P Reviewed: Oct 02, 2020 Time H&P Reviewed: 11:00 Pre-Op Diagnosis: Sacral mass Conscious Sedation Pre-Proced Time 11:00 ASA Score 2 For ASA 3 and 4: Consider anesthesia and medical clearance. Also, for patients with a history of failed moderate sedation consider anesthesia. Airway Lungs Heart ASA score ASA 1: a normal healthy patient ASA 2: a patient with a mild systemic disease (mid diabetes, controlled hypertension, obesity ASA 3: a patient with a severe systemic disease that limits activity (angina, COPD, prior Myocardial infarction) ASA 4: a patient with an incapacitating disease that is a constant threat to life (CHF, renal failure) ASA 5: a moribund patient not expected to survive 24 hrs. (ruptured aneurysm) ASA 6: a declared brain- patient whose organs are being harvested. For emergent operations, add the letter E after the classification Mallampati Classification Grade 2 Sedation Plan Analgesia, Amnesia, Plan communicated to team members, Discussed options with patient/fam, Discussed risks with patient/fam The patient is an appropriate candidate to undergo the planned procedure, sedation, and anesthesia. The patient immediately re-assessed prior to indication. EDMUND CARROLL MD Oct 02, 2020 12:40
--- NOTE | 2020-10-02 13:21 | Diagnostic Imaging Report ---
INDICATION: SACRAL MASS TECHNIQUE: All CT scans use one or more of the following dose optimizing techniques: automated exposure control, MA and/or KvP adjustment based on patient size and exam type or iterative reconstruction. Patient brought to the CT suite placed on table in the prone position. Axial imaging through the pelvis was performed to evaluate appropriate entry site. Procedure was performed utilizing conscious sedation with radiology nursing and constant patient monitoring. Patient was administered a total of 100 mg of fentanyl intravenously and 1 mg of Versed intravenously. Total procedure time was 8 minutes. The low back was prepped and draped usual sterile fashion. Small amount of 1% lidocaine was utilized for local anesthesia. An 18-gauge coaxial Temno needle was advanced placed with its tip within the soft tissue mass involving the left sacrum. A total of 5 core biopsies were obtained. Hemostasis was obtained using manual compression. Followup imaging shows no complicated features. IMPRESSION: Successful CT-guided core biopsy of the soft tissue mass involving the left sacrum, utilizing conscious sedation. Pathology results are currently pending. Dictated by: Dictated on workstation # [id number]
== END 2020-10-02 14:40 | disposition home or self-care (01) ==
LOC: SDC 09:31
PROVIDERS: ATTEND Emergency Medicine
DX: C41.4 Malignant neoplasm of pelvic bones, sacrum and coccyx (principal); C79.9 Secondary malignant neoplasm of unspecified site
CPT/HCPCS: 36415; 77012; 85025; 85027; 85610; 85730; 88307; 88341; 88342; 88344; 99156

== ENCOUNTER 2020-10-11 03:39 | Emergency (ER) | payer OTHER ==
[~2020-10-11] VITALS: Ht 188 cm; Wt 136.0 kg
[~2020-10-11 03:39] MED LIST changes: +GABA300C PO; -LIDOCAINE 1% INJ 20 ML 20 ML VIAL INJ ONE; -MIDAZOLAM 2 MG/2 ML (VERSED) VIAL IVP ONE; -NS IV 1000 ML 1,000 ML IV STA; -fentaNYL INJ 100 MCG/2 ML AMP IVP ONE
[2020-10-11] MEDS ORDERED: morphine INJ 10 MG/ML 1ML (SYR OR VIAL) IVP STA ×2 (03:56→04:54)
[2020-10-11] MEDS ORDERED: KETOROLAC 30 MG/ML VIAL IVP ONE (04:00)
--- NOTE | 2020-10-11 05:00 | ED General ---
General Chief Complaint: General Problems/Pain Stated Complaint: PAIN/ PANCREATIC CA Nursing Triage Note: TO ED VIA [facility] WITH C/O INTRACTABLE PAIN. Nursing Sepsis Screen: No Definite Risk Source of Information: Patient Exam Limitations: No Limitations History of Present Illness Date Seen by Provider: Oct 11, 2020 Time Seen by Provider: 03:41 Initial Comments This 67-year-old gentleman presents to the emergency room via EMS with uncontrolled pain primarily in his left buttock, sacral region, and thigh that sometimes radiates down to his foot. He reports this is related to pancreatic cancer recently diagnosed. Review of his chart notes a biopsy of a sacral lesion that was characterized as hepatocellular carcinoma metastases. CT of the lumbar spine also showed spinal stenosis in addition to an erosive metastatic sacral lesion. He has been taking hydrocodone and Tylenol. Tonight he increased his frequency of hydrocodone up to every 2 hours instead of every 4 hours. He reports this was still not managing his pain so he elected to seek help in the emergency room. He is still able to bear weight and ambulate some. He reports his pain is 15 out of 10. [facility] but locally has seen Dr. Felix. He sees Dr. Maynard for his cancer management. Allergies and Home Medications Allergies Coded Allergies: No Known Drug Allergies (Verified , 08/14/20) Home Medications Acetaminophen 500 Mg Tablet, 500-1,000 MG PO Q4H PRN for PAIN-MILD (1-4), (Reported) Albuterol Sulfate 1 Puff Puff, 2 PUFF IH BID PRN for SHORTNESS OF BREATH, (Reported) 1 PUFF = 90 MCG Apixaban 5 Mg Tablet, 5 MG PO BID Prescribed by: PRANAV KING on 04/27/19 09 Diltiazem HCl 120 Mg Cap.er.24h, 120 MG PO DAILY Prescribed by: PRANAV KING on 04/27/19 0904 Fluticasone/Salmeterol 12 Gm Hfa.aer.ad, 2 PUFF IH BID@ Prescribed by: PRANAV KING on 04/27/19 09 Gabapentin 300 Mg Capsule, 300 MG PO DAILY, (Reported) Hydrocodone/Acetaminophen 1 Each Tablet, 1 EACH PO Q6H PRN for PAIN-SEVERE (8- 10) Prescribed by: FREDERICK FORD on 09/10/20 1740 Lisinopril/Hydrochlorothiazide 1 Each Tablet, 1 EACH PO DAILY, (Reported) Trazodone HCl 50 Mg Tablet, 50 MG PO HS, (Reported) Patient Home Medication List Home Medication List Reviewed: Yes Review of Systems Review of Systems Constitutional: no symptoms reported EENTM: no symptoms reported Respiratory: no symptoms reported Cardiovascular: no symptoms reported Gastrointestinal: no symptoms reported Genitourinary: no symptoms reported Musculoskeletal: see HPI Skin: no symptoms reported Psychiatric/Neurological: See HPI Hematologic/Lymphatic: No Symptoms Reported Past Bastbzq-Tarzmg-Hzxcci Hx Past Med/Social Hx: Reviewed Nursing Past Med/Soc Hx Patient Social History Alcohol Use: Past History Number of Drinks Today: AA Alcohol Beverage of Choice: Beer Drug of Choice: MARIJUANA Smoking Status: Current Everyday Smoker Type Used: Cigars, Cigarettes 2nd Hand Smoke Exposure: No Recent Infectious Disease Expo: No Recent Hopitalizations: No Immunizations Up To Date Tetanus Booster (TDap): Unknown PED Vaccines UTD: Yes Date of Pneumonia Vaccine: Jan 19, 2019 Date of Influenza Vaccine: Jan 20, 2020 Seasonal Allergies Seasonal Allergies: Yes Past Medical History Surgeries: No (EYE IMPLANTS) Eye Surgery Respiratory: No (WEARS O2 AT 3L CONTINOUS) COPD Currently Using CPAP: No (BUT UNABLE TO WEAR IT ) Cardiac: Yes Atrial Fibrillation, Hypertension Neurological: No Reproductive Disorders: No Sexually Transmitted Disease: No Genitourinary: No Gastrointestinal: No Musculoskeletal: Yes (RESTLESS LEG SYNDROME) Arthritis Endocrine: No HEENT: Yes (EYE IMPLANTS) Cataract Hearing Impairment: Denies Cancer: Yes (Hepatocellular carcinoma, metastatic to the sacrum) Psychosocial: Yes (MOOD DISORDER) Anxiety, Bipolar Integumentary: No (MOLES-REMOVED) Blood Disorders: No Adverse Reaction/Blood Tranf: No Family Medical History No Pertinent Family Hx Physical Exam Vital Signs Vital Signs - First Documented 10/11/20 03:42 Temp 36.1 Pulse 68 Resp 18 B/P (MAP) 171/115 (133) O2 Delivery Room Air Capillary Refill : Less Than 3 Seconds Height, Weight, BMI Height: '" Weight: lbs. oz. kg; 38.00 BMI Method: General Appearance: No Apparent Distress, Moderate Distress HEENT: PERRL/EOMI, Normal ENT Inspection Neck: Normal Inspection Respiratory: Lungs Clear, Normal Breath Sounds, No Accessory Muscle Use Cardiovascular: Regular Rate, Rhythm, No Edema, No Murmur Gastrointestinal: Non Tender, Soft; No Distended Back: Normal Inspection, Vertebral Tenderness Extremity: Normal Inspection, No Pedal Edema Neurologic/Psychiatric: Alert, Oriented x3, No Motor/Sensory Deficits, assistant banquet manager II- XII Norm as Tested Skin: Normal Color, Warm/Dry Progress/Results/Core Measures Suspected Sepsis Recent Fever Within 48 Hours: No Infection Criteria Present: None New/Unexplained Altered Menta: No Sepsis Screen: No Definite Risk SIRS Temperature: Pulse: 68 Respiratory Rate: 18 Blood Pressure 171 /115 Mean: 133 Results/Orders My Orders Orders - RONALD GALVAN MD Morphine Injection (Morphine Injection (10/11/20 03:56) Ketorolac Injection (Toradol Injection) (10/11/20 04:00) Ed Iv/Invasive Line Start (10/11/20 04:10) Morphine Injection (Morphine Injection (10/11/20 04:54) Medications Given in ED Current Medications Medications Dose Ordered Sig/Sher Route Start Time Stop Time Status Last Admin Dose Admin Ketorolac Tromethamine 15 mg ONCE ONCE IVP 10/11/20 04:00 10/11/20 04:02 DC 10/11/20 04:03 15 MG Vital Signs/I&O 10/11/20 03:42 Temp 36.1 Pulse 68 Resp 18 B/P (MAP) 171/115 (133) O2 Delivery Room Air Capillary Refill : Less Than 3 Seconds Blood Pressure Mean: 133 Progress Note : Progress Note Patient denied any contraindications or warnings against taking NSAIDs. He is not aware of any renal function problems. Toradol was administered along with morphine 5 mg IV. This dropped his pain significantly down to 5/10. Morphine was repeated 1 more time prior to discharge to help him on his way home. Medication instructions were given and reviewed with him prior to discharge. I did warn him about avoiding multiple sources of acetaminophen as this may cause an accidental overdose. See discharge instructions for more discussion. 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 Decision time for Depature: 04:57 Referrals: NO,LOCAL PHYSICIAN (PCP/Family) Primary Care Physician Patient Instructions: Bone Metastasis, Spinal Stenosis Add. Discharge Instructions: Please contact the Cancer Center later today to inform them of your uncontrolled pain. You may take up to 2 of your hydrocodone tablets every 4 hours if needed to help manage your pain. Do not add any additional Tylenol (acetaminophen) to this dosing of hydrocodone as that will result in an overdose of acetaminophen. You may also try adding ibuprofen up to 600 mg every 6 hours as needed. For nerve pain that runs down your leg, you may consider trying gabapentin up to 600 mg 3 times daily. Drink plenty of clear liquids to stay well-hydrated. Call with questions or concerns. Return to the ER if you have worsening symptoms. All discharge instructions reviewed with patient and/or family. Voiced understanding. Copy Copies To 1: FILOMENA MAYNARD MD Copies To 2: MARINA FELIX MD, JOSHUA T MD Oct 11, 2020 05:00
[2020-10-11 05:16] VITALS: BP 155/98
== END 2020-10-11 05:22 | disposition home or self-care (01) ==
LOC: EDUNIT# 03:39 → ER 03:41
DX: C78.7 Secondary malignant neoplasm of liver and intrahepatic bile duct (principal); M48.061 Spinal stenosis, lumbar region without neurogenic claudication; J44.9 Chronic obstructive pulmonary disease, unspecified; I10 Essential (primary) hypertension; I48.91 Unspecified atrial fibrillation; F41.9 Anxiety disorder, unspecified; F17.210 Nicotine dependence, cigarettes, uncomplicated; F17.290 Nicotine dependence, other tobacco product, uncomplicated; Z79.01 Long term (current) use of anticoagulants; Z79.899 Other long term (current) drug therapy

== ENCOUNTER 2020-10-19 06:25 | Outpatient (CLI) | payer OTHER ==
[~2020-10-19] VITALS: Ht 188 cm; Wt 136.4 kg
[2020-10-19] MEDS ORDERED: DILT120C88 PO (11:24)
[2020-10-19] MEDS ORDERED: FISH1CAP15 PO (11:24)
[2020-10-19] MEDS ORDERED: POTA10TA36 PO (11:24)
[2020-10-19] MEDS ORDERED: APIX5TAB PO (11:24)
[2020-10-19] MEDS ORDERED: HYDR-3820 PO (11:24)
[2020-10-19] MEDS ORDERED: HYDR25TA4 PO (11:24)
[2020-10-19] MEDS ORDERED: FLUT12AE4 IH (11:24)
== END 2020-10-19 11:48 | disposition home or self-care (01) ==
LOC: PREOP 06:25
PROVIDERS: ATTEND Surgery
DX: Z01.818 Encounter for other preprocedural examination (principal)

== ENCOUNTER → 2020-10-20 | Outpatient (CLI) | payer OTHER ==
[~2020-10-20] MED LIST changes: +FISH1CAP15 PO; +HYDR25TA4 PO; +POTA10TA36 PO
--- NOTE | 2020-10-20 12:53 | Diagnostic Imaging Report ---
EXAMINATION: CT pelvis with intravenous contrast. TECHNIQUE: Multiple contiguous axial images were obtained through the pelvis after the uneventful administration of intravenous contrast. All CT scans use one or more of the following dose optimizing techniques: automated exposure control, MA and/or KvP adjustment based on patient size and exam type or iterative reconstruction. HISTORY: Prostate cancer COMPARISON: None available. FINDINGS: Visualized portions of the kidneys are normal. There is no hydronephrosis. Urinary bladder is normal. Visualized bowel is normal in caliber without obstruction or inflammation. No free fluid or air. No pelvic lymphadenopathy. Aorta is normal in caliber without aneurysm. There is 4.7 x 4.2 cm left sacral alar mass. IMPRESSION: 1. Left sacral mass measuring 4.7 x 4.2 cm consistent with metastatic disease. Dictated by: Dictated on workstation # [id number]
== END ==
LOC: RAD 10:10
PROVIDERS: ATTEND Nurse Practitioner Adult Health
DX: R22.2 Localized swelling, mass and lump, trunk (principal); Z85.46 Personal history of malignant neoplasm of prostate
CPT/HCPCS: 72193

== ENCOUNTER → 2020-10-20 | Outpatient (CLI) | payer OTHER ==
[~2020-10-20] MED LIST changes: +CATHETER FLUSH 10 ML SYR IV PRN; +HOLD METFORMIN - RECEIVED CONTRAST 20 ML VIAL IV SCH; +IOHEXOL 350 MG/ML 100 ML (OMNIPAQUE 350) VIAL IV ONE; +NS 100 ML (IVPB) BAG IV ONE
--- NOTE | 2020-10-20 12:50 | Diagnostic Imaging Report ---
EXAMINATION: CT chest and abdomen with intravenous contrast. TECHNIQUE: Multiple contiguous axial images were obtained through the chest and abdomen after the uneventful administration of intravenous contrast. All CT scans use one or more of the following dose optimizing techniques: automated exposure control, MA and/or KvP adjustment based on patient size and exam type or iterative reconstruction. HISTORY: Prostate cancer, liver cancer COMPARISON: None available. FINDINGS: There is no edema or pneumonia. No pleural effusion. No pneumothorax. No suspicious nodules. There is moderate paraseptal emphysema. There is no axillary or supraclavicular lymphadenopathy. There is no mediastinal lymphadenopathy. Heart size is normal. There are mild coronary artery calcifications. No pericardial effusion. Aorta is normal in caliber. There is an 11 x 7 mm heterogeneous mass in the right hemiliver with areas of enhancement and hypoattenuation. It is infiltrative in nature. Liver surface is mildly nodular. There is no biliary ductal dilation. Gallbladder is normal. Pancreas is normal. Spleen is normal. There is a 3.7 x 1.8 cm left adrenal nodule. It is low attenuation suggestive of an adenoma. There are simple cysts in the kidneys. There is no hydronephrosis. Visualized bowel is normal in caliber without obstruction or inflammation. No free fluid or air. No abdominal lymphadenopathy. Aorta is normal in caliber without aneurysm. There are no suspicious osseus lesions. IMPRESSION: 1. Large heterogeneous mass in the hemiliver consistent with a malignancy, potentially hepatocellular carcinoma given the liver surface nodularity suggestive of cirrhosis. Dictated by: Dictated on workstation # [id number]
== END ==
LOC: RAD 15:15
PROVIDERS: ATTEND Internal Medicine Hematology & Oncology
DX: C22.0 Liver cell carcinoma (principal); Z80.42 Family history of malignant neoplasm of prostate
CPT/HCPCS: 71260; 74160

== ENCOUNTER 2020-10-25 09:09 | Day surgery (SDC) | payer OTHER ==
[~2020-10-25] VITALS: Ht 188 cm; Wt 136.4 kg
[~2020-10-25 09:09] MED LIST changes: -CATHETER FLUSH 10 ML SYR IV PRN; -HOLD METFORMIN - RECEIVED CONTRAST 20 ML VIAL IV SCH; -IOHEXOL 350 MG/ML 100 ML (OMNIPAQUE 350) VIAL IV ONE; -NS 100 ML (IVPB) BAG IV ONE
[2020-10-25 09:50] VITALS: BP 168/99
[2020-10-25] MEDS ORDERED: LACTATED RINGERS 1,000 ML IV PRN (10:00)
[2020-10-25] MEDS ORDERED: ceFAZolin 2 GM IV Premixed 50 ML IV ONE (10:00)
--- NOTE | 2020-10-25 10:05 | Progress Note-Pre Operative ---
Pre-Operative Progress Note H&P Reviewed The H&P was reviewed, patient examined and no changes noted. Time Seen by Provider: 10:01 Date H&P Reviewed: Oct 25, 2020 Time H&P Reviewed: 10:01 Pre-Operative Diagnosis: Liver CA with mets, Venous insufficiency BILLY HORTA DO Oct 25, 2020 10:05
[2020-10-25] MEDS ORDERED: fentaNYL INJ 100 MCG/2 ML AMP ONE (10:25)
[2020-10-25] MEDS ORDERED: PROPOFOL INJECTION 50 ML IV ONE (10:25)
[2020-10-25] MEDS ORDERED: MIDAZOLAM 2 MG/2 ML (VERSED) VIAL ONE (10:25)
[2020-10-25] MEDS ORDERED: HEParin (CENTRAL IV FLUSH) 500 UNIT/5 ML SYR ONE (10:48)
[2020-10-25] MEDS ORDERED: LIDOCAINE/EPI 1%-1:100,000 (XYLOCAINE) 20ML ONE (10:48)
[2020-10-25] MEDS ORDERED: 0.9% SODIUM CHLORIDE PF INJ 20 ML VIAL ONE (10:48)
--- NOTE | 2020-10-25 11:27 | Progress Note-Post Operative ---
Post-Operative Progess Note Surgeon (s)/Make Up Arranger (s) Surgeon BILLY HORTA DO Make Up Arranger: NONE Pre-Operative Diagnosis Liver CA with mets, Venous insufficiency Post-Operative Diagnosis same Procedure & Operative Findings Date of Procedure 10/25/20 Procedure Performed/Findings PROCEDURE: The patient was taken to the operating suite, was prepped and draped in the sterile fashion. A surgical pause was performed. Local anesthetic was infiltrated at the clavicle and along the tract to the right anterior chest, where more local was placed so the pocket could be created. Using an 18 gauge finder needle with negative inspiration the right subclavian vein was accessed on the first attempt and dark nonpulsatile blood was withdrawn. The wire was inserted and fluoroscopy assured proper placement. The needle was removed. The regular wire was inserted and fluoroscopy assured proper placement. The wire was then secured. A #11 blade scalpel was used to make an incision over the right chest and along guidewire. Cautery was used to dissect down to the pectoral fascia. A pocket was created with blunt dissection. The dilator sheath was then advanced over the wire under fluoroscopy and the dilator and wire were removed. The Groshong catheter was inserted through the sheath and the sheath was then removed. The Groshong wire was removed. The catheter was then tunneled to the right chest pocket. Fluoroscopy was used to cut to length and this was then attached to the port which was then placed within the pocket. The port was then accessed without difficulty. It was then flushed with saline and then heparin. The subcutaneous tissues were then reapproximated using 3-0 Vicryl. Finally the skin was closed with 4-0 undyed monocryl, 3 interrupted sutures. The areas were then washed and dried. Skin Affix was placed over incision. The insertion point of the neck Skin Affix was placed over the incision. The patient tolerated the procedure well without complication and was taken to recovery room in stable condition. Anesthesia Type IV sedation by STOVE CLEANER Estimated Blood Loss Estimated blood loss (mL): less than 5ml Specimens/Packing Specimens Removed BILLY Herron DO Oct 25, 2020 11:27
--- NOTE | 2020-10-25 11:29 | Discharge Inst-Surgical ---
Discharge Inst-Surgical Depart Medication/Instructions New, Converted or Re-Newed RX: Other (take home meds) Patient Instructions Follow up Appt: Make appointment for 1 week. [phone] Instructions: No lifting greater than 20 pounds. No strenuous activity. May shower in 24 hours, no tub bath or soaking. Use incentive spirometer at home as directed. No Smoking Skin/Wound Care: May remove bandages in am. You need to leave the Dermabond on incision it will fall off on it's own. Symptoms to Report: Appetite Changes, Extremity Discoloration, Numbness/Tingling, Swelling Increased, Bleeding Excessive, Eyesight Changes, Pain Increased, Urine Color Change, Constipation(Persistent), Fever over 101 degree F, Pain/Pressure in chest, Urinating Difficulty, Cough Up/Vomit Blood, Heart Beat Irreg/Pounding, Pain/Pressure in jaw, Cramps in feet or legs, Lightheadedness, Pain/Pressure in shoulder, Diarrhea(Persistent), Memory Changes Suddenly, Questions/Concerns, Weight gain consecutive days, Dizziness/Fainting, Nausea/Vomiting, Shortness of Breath, Weight gain over 2 pounds If questions or concerns contact your physician Or seek help at emergency department. Activity Activity as Tolerated: Yes Driving Instructions: No Driving/Refer to Dr. Hernandez Discharge Diet: No Restrictions Diet After 24 Hours: Clear Liquid if Nauseous If Any Problems/Questions/Issu: Contact Your Physician, Go to Emergency Room Skin/Wound Care Infection Signs and Symptoms: Increased Redness, Foul Odor of Wound, Increased Drainage, Skin Itchy or Has a Rash, Increased Swelling, Temperature Above 101 F Bathing Instructions: Shower Stitches/Andrea/Dermabond Dis: BILLY Montez DO Oct 25, 2020 11:29
[2020-10-25 11:34] VITALS: BP 146/92
--- NOTE | 2020-10-25 11:38 | Anesthesia-General Post-Op ---
MAC Patient Condition Mental Status/LOC: Same as Preop Cardiovascular: Satisfactory Nausea/Vomiting: Absent Respiratory: Satisfactory Pain: Controlled Complications: Absent Post Op Complications Complications None Follow Up Care/Instructions Patient Instructions None needed. Anesthesiology Discharge Order Discharge Order Patient is doing well, no complaints, stable vital signs, no apparent adverse anesthesia problems. No complications reported per nursing. BREANA CORCORAN CRNA Oct 25, 2020 11:38
[2020-10-25 11:40] VITALS: BP 149/89
[2020-10-25] MEDS ORDERED: morphine INJ 10 MG/ML 1ML (SYR OR VIAL) IVP ONE (11:45)
[2020-10-25] MEDS ORDERED: MEPERIDINE (DEMEROL) INJ 50 MG/ML IVP ONE (11:45)
[2020-10-25] MEDS ORDERED: ONDANSETRON 4 MG/2 ML (SDV) Z0FRAN IVP PRN (11:45)
[2020-10-25 11:55] VITALS: BP_SYST 158; BP_SYST 159; BP_DIAS 84; BP_DIAS 91
[2020-10-25 12:25] VITALS: BP 171/88
--- NOTE | 2020-10-25 13:19 | Diagnostic Imaging Report ---
INDICATION: Fluoroscopy during port placement. DETAILS OF THE PROCEDURE: Fluoroscopy was provided in the OR during port placement. 4 seconds of fluoroscopic time was utilized. Two images were obtained demonstrating a right-sided port. The tip appears to be overlying the SVC. IMPRESSION: Fluoroscopy for port placement. Dictated by: Dictated on workstation # [id number]
== END 2020-10-25 12:50 | disposition home or self-care (01) ==
LOC: SDC 09:09
PROVIDERS: ATTEND Surgery
DX: I87.2 Venous insufficiency (chronic) (peripheral) (principal); E78.00 Pure hypercholesterolemia, unspecified; J43.1 Panlobular emphysema; C22.0 Liver cell carcinoma; C79.51 Secondary malignant neoplasm of bone; B18.2 Chronic viral hepatitis C; I10 Essential (primary) hypertension; I48.91 Unspecified atrial fibrillation; G47.33 Obstructive sleep apnea (adult) (pediatric); F41.9 Anxiety disorder, unspecified; F31.9 Bipolar disorder, unspecified; E66.9 Obesity, unspecified; F17.210 Nicotine dependence, cigarettes, uncomplicated; Z79.82 Long term (current) use of aspirin; Z79.899 Other long term (current) drug therapy; Z99.89 Dependence on other enabling machines and devices; Z68.39 Body mass index [BMI] 39.0-39.9, adult; Z79.891 Long term (current) use of opiate analgesic; Z83.3 Family history of diabetes mellitus; Z80.9 Family history of malignant neoplasm, unspecified
CPT/HCPCS: 76000; 87081

== ENCOUNTER 2021-01-09 12:35 | Outpatient (RCR) | payer OTHER ==
[2020-10-16 10:14] LABS: BASOPHILS % (AUTO) 0 % (0-10); EOSINOPHILS # (AUTO) 0.2 10^3/uL (0.0-0.3); EOSINOPHILS % (AUTO) 3 % (0-10); HEMATOCRIT 50 % (40-54); HEMOGLOBIN 15.9 g/dL (13.3-17.7); LYMPHOCYTES # (AUTO) 0.7 10^3/uL (1.0-4.0); LYMPHOCYTES % (AUTO) 14 % (12-44); MEAN CORPUSCULAR HEMOGLOBIN 31 pg (25-34); MEAN CORPUSCULAR HGB CONC 32 g/dL (32-36); MEAN CORPUSCULAR VOLUME 99 fL (80-99); MEAN PLATELET VOLUME 10.9 fL (9.0-12.2); MONOCYTES # (AUTO) 0.7 10^3/uL (0.0-1.0); MONOCYTES % (AUTO) 13 % (0-12); NEUTROPHILS # (AUTO) 3.5 10^3/uL (1.8-7.8); NEUTROPHILS % (AUTO) 69 % (42-75); PLATELET COUNT 168 10^3/uL (130-400)
[2020-10-16 10:36] LABS: ALANINE AMINOTRANSFERASE 26 U/L (0-55); ALBUMIN 3.7 GM/DL (3.2-4.5); ALKALINE PHOSPHATASE 73 U/L (40-136); BILIRUBIN,TOTAL 0.7 MG/DL (0.1-1.0); BUN/CREATININE RATIO 29; CALCIUM 9.6 MG/DL (8.5-10.1); CARBON DIOXIDE 27 MMOL/L (21-32); CHLORIDE 102 MMOL/L (98-107); CREATININE SERUM 0.79 MG/DL (0.60-1.30); GFR ESTIMATED > 60; GLUCOSE 98 MG/DL (70-105); SODIUM 138 MMOL/L (135-145); TOTAL PROTEIN 7.7 GM/DL (6.4-8.2)
[2020-10-16 22:50] LABS: HEPATITIS C ANTIBODY C Reactive (Non-Reactive)
[2020-12-05 12:50] LABS: BASOPHILS % (AUTO) 0 % (0-10); MEAN CORPUSCULAR VOLUME 96 fL (80-99); MONOCYTES % (AUTO) 11 % (0-12)
[2020-12-05 12:52] LABS: EOSINOPHILS # (AUTO) 0.3 10^3/uL (0.0-0.3); EOSINOPHILS % (AUTO) 6 % (0-10); HEMATOCRIT 48 % (40-54); HEMOGLOBIN 15.8 g/dL (13.3-17.7); LYMPHOCYTES # (AUTO) 0.8 10^3/uL (1.0-4.0); LYMPHOCYTES % (AUTO) 15 % (12-44); MEAN CORPUSCULAR HEMOGLOBIN 32 pg (25-34); MEAN CORPUSCULAR HGB CONC 33 g/dL (32-36); MEAN PLATELET VOLUME 10.9 fL (9.0-12.2); MONOCYTES # (AUTO) 0.6 10^3/uL (0.0-1.0); NEUTROPHILS # (AUTO) 3.7 10^3/uL (1.8-7.8); NEUTROPHILS % (AUTO) 68 % (42-75); PLATELET COUNT 128 10^3/uL (130-400); WHITE BLOOD COUNT 5.4 10^3/uL (4.3-11.0)
[2020-12-05 13:09] LABS: ALBUMIN 3.8 GM/DL (3.2-4.5); BILIRUBIN,TOTAL 0.9 MG/DL (0.1-1.0); CALCIUM 9.9 MG/DL (8.5-10.1); CREATININE SERUM 0.9 MG/DL (0.60-1.30); POTASSIUM 3.8 MMOL/L (3.6-5.0); TOTAL PROTEIN 8.1 GM/DL (6.4-8.2)
[2020-12-26 09:58] LABS: HEMOGLOBIN 14.7 g/dL (13.3-17.7)
[2020-12-26 09:59] LABS: BASOPHILS % (AUTO) 1 % (0-10); EOSINOPHILS # (AUTO) 0.7 10^3/uL (0.0-0.3); EOSINOPHILS % (AUTO) 13 % (0-10); HEMATOCRIT 44 % (40-54); LYMPHOCYTES # (AUTO) 0.9 10^3/uL (1.0-4.0); LYMPHOCYTES % (AUTO) 18 % (12-44); MEAN CORPUSCULAR HEMOGLOBIN 32 pg (25-34); MEAN CORPUSCULAR HGB CONC 34 g/dL (32-36); MEAN CORPUSCULAR VOLUME 95 fL (80-99); MEAN PLATELET VOLUME 11.3 fL (9.0-12.2); MONOCYTES # (AUTO) 0.6 10^3/uL (0.0-1.0); MONOCYTES % (AUTO) 12 % (0-12); NEUTROPHILS # (AUTO) 2.9 10^3/uL (1.8-7.8); NEUTROPHILS % (AUTO) 57 % (42-75); PLATELET COUNT 133 10^3/uL (130-400); WHITE BLOOD COUNT 5.1 10^3/uL (4.3-11.0)
[2020-12-26 10:16] LABS: ALBUMIN 3.6 GM/DL (3.2-4.5); BILIRUBIN,TOTAL 0.5 MG/DL (0.1-1.0); CALCIUM 10.1 MG/DL (8.5-10.1); CREATININE SERUM 0.93 MG/DL (0.60-1.30); POTASSIUM 3.8 MMOL/L (3.6-5.0); TOTAL PROTEIN 7.9 GM/DL (6.4-8.2)
[~2021-01-09 12:35] MED LIST changes: +ACETAMINOPHEN 500 MG TAB (TYLENOL) CANCER CTR ONE; +ACETAMINOPHEN 500 MG TAB (TYLENOL) CANCER CTR PO PRN; +ATEZOLIZUMAB 1,200 MG in NS (IVPB) CANCER CENTER 250 ML IV SCH; +BEVACIZUMAB BVZR IV SCH; +NS IV 1000 ML (CANCER CTR) 1,000 ML ONE; +NS IV 1000 ML (CANCER CTR) IV SCH; +NS IV SCH; +diphenhydrAMINE 25 MG TAB (BENADRYL) CANCER CENTER PO ONE; +diphenhydrAMINE 25 MG TAB (BENADRYL) CANCER CENTER PO SCH
[2021-01-09 13:20] LABS: BASOPHILS % (AUTO) 0 % (0-10); HEMOGLOBIN 14.4 g/dL (13.3-17.7); MEAN CORPUSCULAR VOLUME 95 fL (80-99); NEUTROPHILS # (AUTO) 3.1 10^3/uL (1.8-7.8)
[2021-01-09 13:21] LABS: EOSINOPHILS # (AUTO) 0.4 10^3/uL (0.0-0.3); EOSINOPHILS % (AUTO) 8 % (0-10); HEMATOCRIT 42 % (40-54); LYMPHOCYTES # (AUTO) 0.8 10^3/uL (1.0-4.0); LYMPHOCYTES % (AUTO) 17 % (12-44); MEAN CORPUSCULAR HEMOGLOBIN 32 pg (25-34); MEAN CORPUSCULAR HGB CONC 34 g/dL (32-36); MEAN PLATELET VOLUME 11.4 fL (9.0-12.2); MONOCYTES # (AUTO) 0.5 10^3/uL (0.0-1.0); MONOCYTES % (AUTO) 10 % (0-12); NEUTROPHILS % (AUTO) 65 % (42-75); PLATELET COUNT 125 10^3/uL (130-400); WHITE BLOOD COUNT 4.8 10^3/uL (4.3-11.0)
[2021-01-09 13:37] LABS: ALBUMIN 3.6 GM/DL (3.2-4.5); BILIRUBIN,TOTAL 0.5 MG/DL (0.1-1.0); CALCIUM 9.3 MG/DL (8.5-10.1); CREATININE SERUM 0.8 MG/DL (0.60-1.30)
== END 2021-01-14 | disposition home or self-care (01) ==
LOC: ONC 12:35
PROVIDERS: ATTEND Internal Medicine Hematology & Oncology
DX: C22.0 Liver cell carcinoma (principal); I10 Essential (primary) hypertension; I65.29 Occlusion and stenosis of unspecified carotid artery; J44.9 Chronic obstructive pulmonary disease, unspecified; I25.10 Atherosclerotic heart disease of native coronary artery without angina pectoris; E78.5 Hyperlipidemia, unspecified; E66.9 Obesity, unspecified; Z72.0 Tobacco use
CPT/HCPCS: 36591; 77290; 77295; 77300; 77334; 77336; 77338; 77386; 77417; 77470; 80053; 80074; 82105; 84443; 85025; 96413; 96417; 99213; 99214

== ENCOUNTER → 2021-02-14 | Outpatient (CLI) | payer OTHER ==
[~2021-02-14] MED LIST changes: -ACETAMINOPHEN 500 MG TAB (TYLENOL) CANCER CTR ONE; -ACETAMINOPHEN 500 MG TAB (TYLENOL) CANCER CTR PO PRN; -ATEZOLIZUMAB 1,200 MG in NS (IVPB) CANCER CENTER 250 ML IV SCH; -BEVACIZUMAB BVZR IV SCH; +CATHETER FLUSH 10 ML SYR IV PRN; +HOLD METFORMIN - RECEIVED CONTRAST 20 ML VIAL IV SCH; +IOHEXOL 350 MG/ML 100 ML (OMNIPAQUE 350) VIAL IV ONE; +NS 100 ML (IVPB) BAG IV ONE; -NS IV 1000 ML (CANCER CTR) 1,000 ML ONE; -NS IV 1000 ML (CANCER CTR) IV SCH; -NS IV SCH; -diphenhydrAMINE 25 MG TAB (BENADRYL) CANCER CENTER PO ONE; -diphenhydrAMINE 25 MG TAB (BENADRYL) CANCER CENTER PO SCH
--- NOTE | 2021-02-14 13:26 | Diagnostic Imaging Report ---
PROCEDURE: CT lumbar spine with and without contrast. TECHNIQUE: Axial images were obtained through the lumbar spine with and without intravenous contrast and reformatted into coronal and sagittal planes. Auto Exposure Controls were utilized during the CT exam to meet ALARA standards for radiation dose reduction. INDICATION: Back pain. History of liver cancer with bone metastases. COMPARISON: 09/10/2020. FINDINGS: There has been interval decrease in size in the soft tissue mass within the left sacrum, now measuring 4.6 x 2.9 cm, previously measuring 4.8 x 4.6 cm. No new focal osseous lesions are identified in the lumbar spine. No evidence of acute fracture or dislocation. Alignment of the lumbar spine is anatomic. Generalized osteopenia is noted. No high density material seen within the spinal canal. No evidence of acute spinal canal stenosis. Degenerative changes are present in the lumbar spine with disc bulges, facet hypertrophy, and marginal osteophytes. The paraspinal soft tissues are unremarkable. The bilateral SI joints show normal alignment. IMPRESSION: 1. Interval decrease in size in the metastatic lesion within the left sacrum, suggestive of treatment response. No new focal osseous lesions are seen in the lumbar spine. 2. No acute fracture or dislocation of the lumbar spine. No acute spinal canal stenosis. Dictated by: Dictated on workstation # [id number]
== END ==
LOC: RAD 10:45
PROVIDERS: ATTEND Internal Medicine Hematology & Oncology
DX: C22.0 Liver cell carcinoma (principal); C79.51 Secondary malignant neoplasm of bone
CPT/HCPCS: 72133

== ENCOUNTER → 2021-02-14 | Outpatient (CLI) | payer OTHER ==
[~2021-02-14] MED LIST changes: -CATHETER FLUSH 10 ML SYR IV PRN; -HOLD METFORMIN - RECEIVED CONTRAST 20 ML VIAL IV SCH; -IOHEXOL 350 MG/ML 100 ML (OMNIPAQUE 350) VIAL IV ONE; -NS 100 ML (IVPB) BAG IV ONE
== END ==
LOC: CARD 10:38
PROVIDERS: ATTEND Internal Medicine Cardiovascular Disease
DX: I11.9 Hypertensive heart disease without heart failure (principal); I49.9 Cardiac arrhythmia, unspecified; I25.10 Atherosclerotic heart disease of native coronary artery without angina pectoris
CPT/HCPCS: 93225; 93226; 93306

== ENCOUNTER 2021-04-05 10:03 | Outpatient (RCR) | payer OTHER ==
[2021-01-30 10:40] LABS: BASOPHILS % (AUTO) 1 % (0-10); MEAN CORPUSCULAR HEMOGLOBIN 33 pg (25-34); MEAN CORPUSCULAR HGB CONC 34 g/dL (32-36); MEAN PLATELET VOLUME 11.1 fL (9.0-12.2)
[2021-01-30 10:42] LABS: EOSINOPHILS # (AUTO) 0.4 10^3/uL (0.0-0.3); EOSINOPHILS % (AUTO) 9 % (0-10); HEMATOCRIT 40 % (40-54); HEMOGLOBIN 13.7 g/dL (13.3-17.7); LYMPHOCYTES # (AUTO) 0.6 10^3/uL (1.0-4.0); LYMPHOCYTES % (AUTO) 15 % (12-44); MEAN CORPUSCULAR VOLUME 98 fL (80-99); MONOCYTES # (AUTO) 0.4 10^3/uL (0.0-1.0); MONOCYTES % (AUTO) 9 % (0-12); NEUTROPHILS # (AUTO) 2.8 10^3/uL (1.8-7.8); NEUTROPHILS % (AUTO) 67 % (42-75); PLATELET COUNT 117 10^3/uL (130-400); WHITE BLOOD COUNT 4.2 10^3/uL (4.3-11.0)
[2021-01-30 11:03] LABS: ALBUMIN 3.6 GM/DL (3.2-4.5); BILIRUBIN,TOTAL 0.7 MG/DL (0.1-1.0); CALCIUM 9.5 MG/DL (8.5-10.1); CREATININE SERUM 0.78 MG/DL (0.60-1.30); POTASSIUM 3.8 MMOL/L (3.6-5.0); TOTAL PROTEIN 7.7 GM/DL (6.4-8.2)
[2021-02-20 11:00] LABS: EOSINOPHILS # (AUTO) 0.7 10^3/uL (0.0-0.3); HEMOGLOBIN 14.7 g/dL (13.3-17.7); MEAN CORPUSCULAR VOLUME 98 fL (80-99)
[2021-02-20 11:02] LABS: BASOPHILS % (AUTO) 1 % (0-10); EOSINOPHILS % (AUTO) 12 % (0-10); HEMATOCRIT 43 % (40-54); LYMPHOCYTES # (AUTO) 0.8 10^3/uL (1.0-4.0); LYMPHOCYTES % (AUTO) 15 % (12-44); MEAN CORPUSCULAR HEMOGLOBIN 34 pg (25-34); MEAN CORPUSCULAR HGB CONC 34 g/dL (32-36); MEAN PLATELET VOLUME 11.4 fL (9.0-12.2); MONOCYTES # (AUTO) 0.5 10^3/uL (0.0-1.0); MONOCYTES % (AUTO) 10 % (0-12); NEUTROPHILS # (AUTO) 3.3 10^3/uL (1.8-7.8); NEUTROPHILS % (AUTO) 62 % (42-75); PLATELET COUNT 117 10^3/uL (130-400); WHITE BLOOD COUNT 5.4 10^3/uL (4.3-11.0)
[2021-02-20 11:19] LABS: ALBUMIN 3.6 GM/DL (3.2-4.5); BILIRUBIN,TOTAL 0.6 MG/DL (0.1-1.0); CALCIUM 9.1 MG/DL (8.5-10.1); CREATININE SERUM 0.81 MG/DL (0.60-1.30); POTASSIUM 3.8 MMOL/L (3.6-5.0); TOTAL PROTEIN 7.4 GM/DL (6.4-8.2)
[2021-02-20 12:31] LABS: BILIRUBIN,URINE NEGATIVE (NEGATIVE); CLARITY,URINE CLEAR; COLOR,URINE YELLOW; GLUCOSE, URINE (UA) NEGATIVE (NEGATIVE); KETONES,URINE NEGATIVE (NEGATIVE); LEUKOCYTE ESTERASE ,URINE NEGATIVE (NEGATIVE); NITRITE,URINE NEGATIVE (NEGATIVE); PH,URINE 5.5 (5-9); PROTEIN,URINE NEGATIVE (NEGATIVE)
[2021-02-20 12:52] LABS: AMORPHOUS SEDIMENT,UR RARE AMOR URATES /LPF; BACTERIA,URINE NEGATIVE /HPF; SQUAMOUS EPITHELIAL CELL,UR 0-2 /HPF
[2021-03-13 09:02] LABS: BASOPHILS % (AUTO) 0 % (0-10); EOSINOPHILS # (AUTO) 0.5 10^3/uL (0.0-0.3); EOSINOPHILS % (AUTO) 10 % (0-10); HEMATOCRIT 43 % (40-54); LYMPHOCYTES # (AUTO) 0.9 10^3/uL (1.0-4.0); LYMPHOCYTES % (AUTO) 16 % (12-44); MEAN CORPUSCULAR HEMOGLOBIN 34 pg (25-34); MEAN CORPUSCULAR HGB CONC 35 g/dL (32-36); MEAN CORPUSCULAR VOLUME 99 fL (80-99); MEAN PLATELET VOLUME 11.8 fL (9.0-12.2); MONOCYTES # (AUTO) 0.5 10^3/uL (0.0-1.0); MONOCYTES % (AUTO) 9 % (0-12); NEUTROPHILS # (AUTO) 3.5 10^3/uL (1.8-7.8); NEUTROPHILS % (AUTO) 64 % (42-75); PLATELET COUNT 125 10^3/uL (130-400); WHITE BLOOD COUNT 5.4 10^3/uL (4.3-11.0)
[2021-03-13 09:18] LABS: ALBUMIN 3.7 GM/DL (3.2-4.5); BILIRUBIN,TOTAL 0.9 MG/DL (0.1-1.0); CALCIUM 9.4 MG/DL (8.5-10.1); CREATININE SERUM 0.93 MG/DL (0.60-1.30); POTASSIUM 3.7 MMOL/L (3.6-5.0); TOTAL PROTEIN 7.5 GM/DL (6.4-8.2)
[~2021-04-05 10:03] MED LIST changes: +ACETAMINOPHEN 500 MG TAB (TYLENOL) CANCER CTR PO PRN; +ATEZOLIZUMAB 1,200 MG in NS (IVPB) CANCER CENTER 250 ML IV SCH; +BEVACIZUMAB BVZR IV SCH; -LISI1TAB29 PO; +LISI1TAB44 PO; +NS IV 1000 ML (CANCER CTR) 1,000 ML ONE; +NS IV 1000 ML (CANCER CTR) IV SCH; +NS IV SCH; -POTA10TA36 PO; +POTA10TA37 PO; +diphenhydrAMINE 25 MG TAB (BENADRYL) CANCER CENTER PO SCH
[2021-04-05 10:28] LABS: MEAN PLATELET VOLUME 11.6 fL (9.0-12.2); MONOCYTES # (AUTO) 0.5 10^3/uL (0.0-1.0)
[2021-04-05 10:30] LABS: BASOPHILS % (AUTO) 0 % (0-10); EOSINOPHILS # (AUTO) 0.3 10^3/uL (0.0-0.3); EOSINOPHILS % (AUTO) 6 % (0-10); HEMATOCRIT 45 % (40-54); HEMOGLOBIN 15.3 g/dL (13.3-17.7); LYMPHOCYTES # (AUTO) 0.9 10^3/uL (1.0-4.0); LYMPHOCYTES % (AUTO) 18 % (12-44); MEAN CORPUSCULAR HEMOGLOBIN 34 pg (25-34); MEAN CORPUSCULAR HGB CONC 34 g/dL (32-36); MEAN CORPUSCULAR VOLUME 98 fL (80-99); MONOCYTES % (AUTO) 11 % (0-12); NEUTROPHILS # (AUTO) 3.2 10^3/uL (1.8-7.8); NEUTROPHILS % (AUTO) 65 % (42-75); PLATELET COUNT 120 10^3/uL (130-400); WHITE BLOOD COUNT 4.9 10^3/uL (4.3-11.0)
[2021-04-05 10:48] LABS: ALBUMIN 3.5 GM/DL (3.2-4.5); BILIRUBIN,TOTAL 1.1 MG/DL (0.1-1.0); CALCIUM 9.1 MG/DL (8.5-10.1); CREATININE SERUM 0.8 MG/DL (0.60-1.30); POTASSIUM 3.5 MMOL/L (3.6-5.0); TOTAL PROTEIN 7.4 GM/DL (6.4-8.2)
[2021-04-05] MEDS ORDERED: NS IV SCH (11:00)
[2021-04-05] MEDS ORDERED: BEVACIZUMAB BVZR IV SCH (11:00)
[2021-04-06] MEDS ORDERED: OXYC30TA77 PO (09:15)
[2021-04-06] MEDS ORDERED: SULF1TAB38 PO (09:15)
[2021-04-06] MEDS ORDERED: GABA300C PO (09:15)
== END 2021-04-20 | disposition home or self-care (01) ==
LOC: ONC 10:03
PROVIDERS: ATTEND Internal Medicine Hematology & Oncology
DX: Z51.11 Encounter for antineoplastic chemotherapy (principal); C22.0 Liver cell carcinoma; C79.51 Secondary malignant neoplasm of bone; I10 Essential (primary) hypertension; J44.9 Chronic obstructive pulmonary disease, unspecified; I25.10 Atherosclerotic heart disease of native coronary artery without angina pectoris; E78.5 Hyperlipidemia, unspecified; I65.29 Occlusion and stenosis of unspecified carotid artery; E66.01 Morbid (severe) obesity due to excess calories; B18.2 Chronic viral hepatitis C; D69.6 Thrombocytopenia, unspecified; I48.91 Unspecified atrial fibrillation; F19.10 Other psychoactive substance abuse, uncomplicated; Z72.0 Tobacco use
CPT/HCPCS: 36591; 80053; 81000; 85025; 96413; 96417; 99213

== ENCOUNTER 2021-04-06 05:12 | Emergency (ER) | payer OTHER ==
[~2021-04-06] VITALS: Ht 188 cm; Wt 120.7 kg
[~2021-04-06 05:12] MED LIST changes: -ACETAMINOPHEN 500 MG TAB (TYLENOL) CANCER CTR PO PRN; -ATEZOLIZUMAB 1,200 MG in NS (IVPB) CANCER CENTER 250 ML IV SCH; -BEVACIZUMAB BVZR IV SCH; -NS IV 1000 ML (CANCER CTR) 1,000 ML ONE; -NS IV 1000 ML (CANCER CTR) IV SCH; -NS IV SCH; -diphenhydrAMINE 25 MG TAB (BENADRYL) CANCER CENTER PO SCH
--- NOTE | 2021-04-06 05:33 | ED General ---
General Chief Complaint: General Problems/Pain Stated Complaint: SOB Source of Information: Patient Exam Limitations: No Limitations (FREDERICK FORD MD) History of Present Illness Date Seen by Provider: Apr 06, 2021 Time Seen by Provider: 05:20 Initial Comments Patient is a 70-year-old male who presents to the emergency room by ambulance this evening with a chief complaint of "twitching" and jerking, increased pain in his left hip and leg. 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 Maynard. Had his last infusion of chemotherapy yesterday at 11 AM. States that he has recently run out of morphine in the last 24 hours. Has been taking hydrocodone instead. States that he was hollering and throwing things at home this morning, unsure of what this really means, the patient's history is somewhat disjointed and does not really follow a clear path. He seems a little confused. His history is all over the place. Review of the medical record shows metastatic hepatocellular cancer. No brain imaging since his diagnosis. He states he is "always" short of breath. No recent complaints of illness. Per review of the medical record had basic labs done including a CBC and Chem-12 yesterday that looked normal. He is having normal bowel movements, urinating normally. Is Covid vaccinated but has not yet had his booster. Is not short of breath currently. Does occasionally still smoke cigarettes. Rates his pain at a "8". Has not taken his morning medications. All other ROS reviewed and neg except a stated Timing/Duration: 4-6 Hours Severity: Moderate Modifying Factors: worse with Movement Associated Systoms: Loss of Appetite ("a little") (FREDERICK FORD MD) Allergies and Home Medications Allergies Coded Allergies: No Known Drug Allergies (Verified , 08/14/20) Patient Home Medication List Home Medication List Reviewed: Yes (FREDERICK FORD MD) Acetaminophen (Tylenol Extra Strength) 500 Mg Tablet, 500 MG PO BID, (Reported) Entered as Reported by: LUCAS MARTINEZ on 04/22/19 1045 Albuterol Sulfate (Proair Hfa) 1 Puff Puff, 2 PUFF IH BID PRN for SHORTNESS OF BREATH, (Reported) Entered as Reported by: LUCAS MARTINEZ on 04/22/19 1045 Apixaban (Eliquis) 5 Mg Tablet, 5 MG PO BID, (Reported) Entered as Reported by: AMY MEJIA on 10/19/20 1124 Diltiazem HCl (Diltiazem 24Hr Cd) 120 Mg Cap.er.24h, 120 MG PO DAILY, (Reported) Entered as Reported by: AMY MEJIA on 10/19/20 1124 Fish Oil/Dha/Epa (Fish Oil 1,200 mg Fish Oil) 1 Each Capsule, 1 EACH PO DAILY, (Reported) Entered as Reported by: AMY MEJIA on 10/19/20 1124 Fluticasone/Salmeterol (Advair Hfa 115-21 Mcg Inhaler) 12 Gm Hfa.aer.ad, 2 PUFF IH BID, (Reported) Entered as Reported by: AMY MEJIA on 10/19/20 112 Gabapentin (Neurontin) 300 Mg Capsule, 300 MG PO DAILY, (Reported) Entered as Reported by: HANSA EDWARDS on 10/02/20 1056 Gabapentin (Neurontin) 300 Mg Capsule, 300 MG PO TID Prescribed by: RONALD JAMISON on 04/06/21 0915 Hydrochlorothiazide (Hydrochlorothiazide) 25 Mg Tablet, 25 MG PO DAILY, (Reported) Entered as Reported by: AMY MEJIA on 10/19/20 112 Hydrocodone/Acetaminophen (Hydrocodone-Acetamin 10-325 mg) 1 Each Tablet, 2 EACH PO Q4H PRN for PAIN-MODERATE (5-7), (Reported) Entered as Reported by: AMY MEJIA on 10/19/20 1124 Oxycodone HCl (Oxycontin) 30 Mg Tab.er.12h, 30 MG PO BID Prescribed by: RONALD JAMISON on 04/06/21 0916 Potassium Chloride (Potassium Chloride) 10 Meq Tab.er.prt, 5 MEQ PO DAILY, (Reported) Entered as Reported by: AMY MEJIA on 10/19/20 1124 Sulfamethoxazole/Trimethoprim (Bactrim Ds Tablet) 1 Each Tablet, 1 EACH PO BID Prescribed by: RONALD JAMISON on 04/06/21 0915 Review of Systems Review of Systems Constitutional: see HPI, chills EENTM: no symptoms reported Respiratory: short of breath (chronic) Cardiovascular: no symptoms reported Gastrointestinal: abdominal pain Genitourinary: no symptoms reported Musculoskeletal: muscle pain (chronic left hip and leg pain - due to bony mets) Skin: other (small abscess on pubic bone he states he "squeezed") (FREDERICK FORD MD) All Other Systems Reviewed Negative Unless Noted: Yes (FREDERICK FODR MD) Past Cbfjvgo-Aizsdu-Evlyff Hx Immunizations Up To Date Tetanus Booster (TDap): Unknown PED Vaccines UTD: Yes (FREDERICK FORD MD) Seasonal Allergies Seasonal Allergies: Yes (FREDERICK FORD MD) Past Medical History Surgeries: No (EYE IMPLANTS) Eye Surgery Respiratory: No (WEARS O2 AT 3L CONTINOUS) COPD Currently Using CPAP: No Currently Using BIPAP: No Cardiac: Yes Atrial Fibrillation, Hypertension Neurological: No Reproductive Disorders: No Sexually Transmitted Disease: No Genitourinary: No Gastrointestinal: No Musculoskeletal: Yes (RESTLESS LEG SYNDROME) Arthritis Endocrine: No HEENT: Yes (EYE IMPLANTS) Cataract Hearing Impairment: Denies Cancer: Yes (Hepatocellular carcinoma, metastatic to the sacrum) Psychosocial: Yes (MOOD DISORDER) Anxiety, Bipolar Integumentary: No (MOLES-REMOVED) Blood Disorders: No Adverse Reaction/Blood Tranf: No (FREDERICK FORD MD) Family Medical History No Pertinent Family Hx (FREDERICK FORD MD) Physical Exam Vital Signs Vital Signs - First Documented 04/06/21 05:14 Temp 35.7 Pulse 55 Resp 18 B/P (MAP) 196/107 (136) Pulse Ox 98 O2 Delivery Room Air (RONALD GALVAN MD) Vital Signs Capillary Refill : (FREDERICK FORD MD) Height, Weight, BMI Height: '" Weight: lbs. oz. kg; 38.59 BMI Method: General Appearance: No Apparent Distress, WD/WN, Anxious (mildly) Eyes: Bilateral Eye Normal Inspection, Bilateral Eye PERRL, Bilateral Eye EOMI HEENT: PERRL/EOMI Neck: Normal Inspection Respiratory: Lungs Clear, Normal Breath Sounds, No Accessory Muscle Use, No Respiratory Distress Cardiovascular: Regular Rate, Rhythm, Normal Peripheral Pulses Gastrointestinal: Soft, Tenderness Extremity: Normal Inspection Neurologic/Psychiatric: Alert, Oriented x3, No Motor/Sensory Deficits, Normal Mood/Affect, illuminator II-XII Norm as Tested Skin: Normal Color, Warm/Dry (FREDERICK FORD MD) Progress/Results/Core Measures Suspected Sepsis SIRS Temperature: Pulse: Respiratory Rate: Blood Pressure / Mean: (FREDERICK FORD MD) Results/Orders My Orders Orders - RONALD GALVAN MD Morphine Er Tablet (Ms Contin Tablet) (04/06/21 06:30) Gabapentin Capsule/Tablet (Neurontin Cap (04/06/21 06:30) (RONALD GALVAN MD) Medications Given in ED Current Medications Medications Dose Ordered Sig/Sher Route Start Time Stop Time Status Last Admin Dose Admin Gabapentin 300 mg ONCE ONCE PO 04/06/21 06:30 04/06/21 06:31 DC 04/06/21 06:44 300 MG Morphine Sulfate 15 mg ONCE ONCE PO 04/06/21 06:30 04/06/21 06:31 DC 04/06/21 06:44 15 MG (RONALD GALVAN MD) Vital Signs/I&O 04/06/21 05:14 Temp 35.7 Pulse 55 Resp 18 B/P (MAP) 196/107 (136) Pulse Ox 98 O2 Delivery Room Air (RONALD GALVAN MD) Vital Signs/I&O Capillary Refill : (FREDERICK FORD MD) Progress Note : Time: 09:07 Progress Note I assumed care of this patient from Dr. Ford at shift change. Bedside report was obtained and we discussed the situation with the patient together. At that time he had received morphine 10 mg IM. Symptoms were improving significantly suggesting that these were symptoms of withdraw. Patient appears to have run out of his morphine and [facility] and are therefore delayed. He has been trying to get by on hydrocodone alone but this does not seem to be sufficient to control his pain and prevent opioid withdraw. He was additionally given morphine ER 15 mg orally and gabapentin 300 mg orally. Pain has remained relatively well controlled. He has been ambulatory independently near his baseline capability. Withdrawal symptoms remain improved and he is cognitively intact. Patient does not know when his morphine will arrive. He has concerns about being able to afford additional prescriptions. I am providing him with 5 days of morphine as well as gabapentin and increasing the gabapentin dose to 3 times daily instead of once daily. I have spoken with Dr. Augustine and explained to the plan with which she agrees. I also evaluated the abscess on his suprapubic region. He explains that this is a chronic abscess or sebaceous cyst but it has been worse over the past 3 weeks. It is still fairly tender. It was bigger until he expressed purulent material out of it. Because the indurated area is fairly large in diameter and he has notable tenderness associated with it, I will prescribe some antibiotics. Patient's nurse practitioner did call the ER and expressed concerned about this abscess/cyst. Patient was invited to call me or Dr. Augustine with any questions or concerns. He was discharged in stable condition with a much improved blood pressure. (RONALD GALVAN MD) Diagnostic Imaging Diagonstic Imaging: CT Plain Films/CT/US/NM/MRI: head Comments CT head viewed by me and report reviewed. See report below: NAME: [facility] REC#: [id number] PT STATUS: REG ER : [id number] PHYSICIAN: FREDERICK FORD MD ADMIT DATE: 04/06/21/ER Draft Date of Exam:04/06/21 CT HEAD WO PROCEDURE: CT head without contrast. TECHNIQUE: Multiple contiguous axial images were obtained through the brain without the use of intravenous contrast. Auto Exposure Controls were utilized during the CT exam to meet ALARA standards for radiation dose reduction. DATE: April 06, 2021. COMPARISON: None. INDICATION: 70-year-old male, altered mental status. History of liver cancer. FINDINGS: The ventricles and cerebral spinal fluid spaces are of normal size and configuration for the patient's age. There is no mass effect or midline shift. There is no acute intracranial hemorrhage. There is no abnormal extra-axial fluid collection. There is mild mucosal thickening of the paranasal sinuses. The mastoid air cells and middle ears are well-aerated bilaterally. IMPRESSION: 1. No identified acute intracranial abnormality. Dictated on workstation # [id number] Dict: 04/06/21 0600 Trans: 04/06/21 0604 [facility] [id number] Interpreted by: ERBEKAH BUTLER MD (RONALD GALVAN MD) Departure Impression Primary Impression: Opioid withdrawal Additional Impressions: Medication not available Metastatic hepatocellular carcinoma to bone Infected cyst of skin Disposition: HOME, SELF-CARE (ERASED) Condition: Stable Departure-Patient Inst. Decision time for Depature: 09:05 (RONALD GALVAN MD) Referrals: MARINA FELIX MD (PCP/Family) Primary Care Physician Patient Instructions: CHRONIC PAIN, Drug Withdrawal ED Add. Discharge Instructions: Your symptoms are likely related to opioid withdrawal. You have already received your morning doses of morphine and gabapentin. Do not repeat these until later in the day according to your prescriptions. You may resume all of your other morning medications when you return home. Follow-up with Dr. Augustine as soon as possible to review your medications. Complete antibiotics as prescribed for the abscess on your lower abdominal area. Return to the emergency room if you are having worsening symptoms or develop new symptoms such as fever. Call with questions or concerns or if you have any trouble filling your prescription. All discharge instructions reviewed with patient and/or family. Voiced understanding. Scripts Sulfamethoxazole/Trimethoprim (Bactrim Ds Tablet) 1 Each Tablet 1 EACH PO BID, #14 TAB Prov: RONALD GALVAN MD 04/06/21 Gabapentin (Neurontin) 300 Mg Capsule 300 MG PO TID, #15 CAP Prov: RONALD GALVAN MD 04/06/21 Oxycodone HCl (Oxycontin) 30 Mg Tab.er.12h 30 MG PO BID, #10 TAB Prov: RONALD GALVAN MD 04/06/21 Copy Copies To 1: MARINA FELIX MD Copies To 2: FILOMENA MAYNARD MD, KATHRYN M MD Apr 06, 2021 05:33 RONALD GALVAN MD Apr 06, 2021 06:12
[2021-04-06] MEDS ORDERED: morphine INJ 10 MG/ML 1ML (SYR OR VIAL) IM STA (05:38)
--- NOTE | 2021-04-06 06:04 | Diagnostic Imaging Report ---
PROCEDURE: CT head without contrast. TECHNIQUE: Multiple contiguous axial images were obtained through the brain without the use of intravenous contrast. Auto Exposure Controls were utilized during the CT exam to meet ALARA standards for radiation dose reduction. DATE: April 06, 2021. COMPARISON: None. INDICATION: 70-year-old male, altered mental status. History of liver cancer. FINDINGS: The ventricles and cerebral spinal fluid spaces are of normal size and configuration for the patient's age. There is no mass effect or midline shift. There is no acute intracranial hemorrhage. There is no abnormal extra-axial fluid collection. There is mild mucosal thickening of the paranasal sinuses. The mastoid air cells and middle ears are well-aerated bilaterally. IMPRESSION: 1. No identified acute intracranial abnormality. Dictated by: Dictated on workstation # [id number]
[2021-04-06] MEDS ORDERED: morphine ER 15 MG (MS CONTIN) TAB PO ONE (06:30)
[2021-04-06] MEDS ORDERED: GABAPENTIN 300 MG (NEURONTIN) CAP PO ONE (06:30)
[2021-04-06] MEDS ORDERED: GABA300C PO (09:15)
[2021-04-06] MEDS ORDERED: OXYC30TA77 PO (09:15)
[2021-04-06] MEDS ORDERED: SULF1TAB38 PO (09:15)
[2021-04-06 09:35] VITALS: BP 166/92
== END 2021-04-06 09:36 | disposition home or self-care (01) ==
LOC: EDUNIT# 05:12 → ER 05:15
DX: F11.23 Opioid dependence with withdrawal (principal); C78.7 Secondary malignant neoplasm of liver and intrahepatic bile duct; C79.51 Secondary malignant neoplasm of bone
CPT/HCPCS: 70450; 96372

== ENCOUNTER 2021-05-02 09:16 | Outpatient (RCR) | payer OTHER ==
[~2021-05-02 09:16] MED LIST changes: +ACETAMINOPHEN 500 MG TAB (TYLENOL) CANCER CTR PO PRN; +ATEZOLIZUMAB 1,200 MG in NS (IVPB) CANCER CENTER 250 ML IV SCH; +BEVACIZUMAB BVZR IV SCH; +NS IV 1000 ML (CANCER CTR) IV SCH; +NS IV SCH; +OXYC30TA77 PO; +SULF1TAB38 PO; +diphenhydrAMINE 25 MG TAB (BENADRYL) CANCER CENTER PO SCH
[2021-05-02 09:53] LABS: EOSINOPHILS # (AUTO) 0.3 10^3/uL (0.0-0.3); EOSINOPHILS % (AUTO) 8 % (0-10); MONOCYTES # (AUTO) 0.4 10^3/uL (0.0-1.0); MONOCYTES % (AUTO) 8 % (0-12)
[2021-05-02 09:55] LABS: BASOPHILS % (AUTO) 0 % (0-10); HEMATOCRIT 44 % (40-54); HEMOGLOBIN 14.6 g/dL (13.3-17.7); LYMPHOCYTES # (AUTO) 0.7 10^3/uL (1.0-4.0); LYMPHOCYTES % (AUTO) 16 % (12-44); MEAN CORPUSCULAR HEMOGLOBIN 33 pg (25-34); MEAN CORPUSCULAR HGB CONC 33 g/dL (32-36); MEAN CORPUSCULAR VOLUME 100 fL (80-99); MEAN PLATELET VOLUME 11.1 fL (9.0-12.2); NEUTROPHILS % (AUTO) 68 % (42-75); PLATELET COUNT 115 10^3/uL (130-400); WHITE BLOOD COUNT 4.4 10^3/uL (4.3-11.0)
[2021-05-02 10:14] LABS: ALBUMIN 3.5 GM/DL (3.2-4.5); BILIRUBIN,TOTAL 0.4 MG/DL (0.1-1.0); CALCIUM 9.2 MG/DL (8.5-10.1); CREATININE SERUM 0.81 MG/DL (0.60-1.30); POTASSIUM 3.8 MMOL/L (3.6-5.0); TOTAL PROTEIN 7.2 GM/DL (6.4-8.2)
[2021-05-02] MEDS ORDERED: BEVACIZUMAB BVZR IV SCH (10:30)
[2021-05-02] MEDS ORDERED: NS IV SCH (10:30)
== END 2021-05-21 | disposition home or self-care (01) ==
LOC: ONC 09:16
PROVIDERS: ATTEND Internal Medicine Hematology & Oncology
DX: Z51.11 Encounter for antineoplastic chemotherapy (principal); C22.0 Liver cell carcinoma; C79.51 Secondary malignant neoplasm of bone; B18.2 Chronic viral hepatitis C; I10 Essential (primary) hypertension; J44.9 Chronic obstructive pulmonary disease, unspecified; I25.10 Atherosclerotic heart disease of native coronary artery without angina pectoris; E78.5 Hyperlipidemia, unspecified; I65.29 Occlusion and stenosis of unspecified carotid artery; E66.01 Morbid (severe) obesity due to excess calories; D69.6 Thrombocytopenia, unspecified; I48.91 Unspecified atrial fibrillation; F19.10 Other psychoactive substance abuse, uncomplicated; Z72.0 Tobacco use
CPT/HCPCS: 80053; 85025; 96413; 96417; 99213

== ENCOUNTER 2021-06-01 09:17 | Outpatient (RCR) | payer OTHER ==
[2021-06-01 09:54] LABS: HEMOGLOBIN 13.6 g/dL (13.3-17.7); MEAN CORPUSCULAR VOLUME 99 fL (80-99)
[2021-06-01 09:56] LABS: BASOPHILS % (AUTO) 1 % (0-10); EOSINOPHILS # (AUTO) 0.4 10^3/uL (0.0-0.3); EOSINOPHILS % (AUTO) 10 % (0-10); HEMATOCRIT 41 % (40-54); LYMPHOCYTES # (AUTO) 0.8 10^3/uL (1.0-4.0); LYMPHOCYTES % (AUTO) 19 % (12-44); MEAN CORPUSCULAR HEMOGLOBIN 33 pg (25-34); MEAN CORPUSCULAR HGB CONC 34 g/dL (32-36); MEAN PLATELET VOLUME 11.5 fL (9.0-12.2); MONOCYTES # (AUTO) 0.5 10^3/uL (0.0-1.0); MONOCYTES % (AUTO) 11 % (0-12); NEUTROPHILS # (AUTO) 2.6 10^3/uL (1.8-7.8); NEUTROPHILS % (AUTO) 59 % (42-75); PLATELET COUNT 105 10^3/uL (130-400); WHITE BLOOD COUNT 4.3 10^3/uL (4.3-11.0)
[2021-06-01 10:28] LABS: ALBUMIN 3.2 GM/DL (3.2-4.5); BILIRUBIN,TOTAL 0.6 MG/DL (0.1-1.0); CALCIUM 7.9 MG/DL (8.5-10.1); CREATININE SERUM 0.73 MG/DL (0.60-1.30); POTASSIUM 3.7 MMOL/L (3.6-5.0); TOTAL PROTEIN 7.1 GM/DL (6.4-8.2)
== END 2021-06-18 | disposition home or self-care (01) ==
LOC: ONC 09:17
PROVIDERS: ATTEND Internal Medicine Hematology & Oncology
DX: Z51.11 Encounter for antineoplastic chemotherapy (principal); Z45.2 Encounter for adjustment and management of vascular access device; C22.0 Liver cell carcinoma; C79.51 Secondary malignant neoplasm of bone; B18.2 Chronic viral hepatitis C; J44.9 Chronic obstructive pulmonary disease, unspecified; I25.10 Atherosclerotic heart disease of native coronary artery without angina pectoris; E78.5 Hyperlipidemia, unspecified; I11.0 Hypertensive heart disease with heart failure; I50.32 Chronic diastolic (congestive) heart failure; I65.29 Occlusion and stenosis of unspecified carotid artery; E66.01 Morbid (severe) obesity due to excess calories; D69.6 Thrombocytopenia, unspecified; I48.91 Unspecified atrial fibrillation; F19.10 Other psychoactive substance abuse, uncomplicated; Z72.0 Tobacco use
CPT/HCPCS: 36591; 80053; 85025; 96413; 96417; 99213

== ENCOUNTER → 2021-06-26 | Outpatient (CLI) | payer OTHER ==
[~2021-06-26] MED LIST changes: -ACETAMINOPHEN 500 MG TAB (TYLENOL) CANCER CTR PO PRN; -ATEZOLIZUMAB 1,200 MG in NS (IVPB) CANCER CENTER 250 ML IV SCH; -BEVACIZUMAB BVZR IV SCH; +CATHETER FLUSH 10 ML SYR IV PRN; +HOLD METFORMIN - RECEIVED CONTRAST 20 ML VIAL IV SCH; +IOHEXOL 350 MG/ML 100 ML (OMNIPAQUE 350) VIAL IV ONE; +NS 100 ML (IVPB) BAG IV ONE; -NS IV 1000 ML (CANCER CTR) IV SCH; -NS IV SCH; -diphenhydrAMINE 25 MG TAB (BENADRYL) CANCER CENTER PO SCH
--- NOTE | 2021-06-26 13:04 | Diagnostic Imaging Report ---
PROCEDURE: CT chest and abdomen with contrast. TECHNIQUE: Multiple contiguous axial images were obtained through the chest and abdomen after the administration of intravenous contrast. Auto Exposure Controls were utilized during the CT exam to meet ALARA standards for radiation dose reduction. DATE: June 26, 2021. INDICATION: 70-year-old male, chest and abdominal pain. History of malignancy. COMPARISON: CT chest and abdomen October 20, 2020. FINDINGS: There are upper lobe predominant findings of paraseptal emphysema. There is no identified pulmonary nodule or lung mass. There is no otherwise noted focal airspace consolidation. There is no pneumothorax. There is no pleural effusion. The central airways are patent. The heart is not enlarged. There is no pericardial effusion. There is no identified abnormally enlarged mediastinal, hilar, or axillary lymph node which meets CT size criteria for adenopathy. There is an ill-defined heterogeneous low-attenuation lesion involving the right lobe of the liver on axial image 121 which measures 4.2 x 3.9 cm in axial dimension. The lesion measures approximately 5.9 cm in craniocaudal extent. This previously measured much larger in size on October 20, 2020 at approximately 8.1 x 9.8 cm in axial dimension and 10.7 cm in craniocaudal dimension. The liver is nodular in contour, consistent with cirrhosis. There are small low-attenuation adjacent foci in the liver such as on axial image 126 measuring 1.3 cm in size. There is no identified particularly distant lesion in the liver. There is low-attenuation in the main portal vein extending into the proximal aspects of the right and left portal veins as well as into the superior mesenteric vein. This potentially could reflect mixing artifact although nonocclusive thrombus cannot be excluded. This appearance is fairly similar to October 20, 2020. The splenic vein is patent. The gallbladder is unremarkable. There is no intrahepatic or extrahepatic bile duct dilation. The main pancreatic duct is not abnormally dilated. Unremarkable appearance of the pancreatic parenchyma. The spleen is mildly enlarged and measures 15 cm in craniocaudal dimension. There is nonspecific thickening of the left adrenal gland. The right adrenal gland is unremarkable in appearance. There is a low-attenuation right renal lesion on axial image 159 which measures 1.9 cm in size. Internal attenuation measures 24 Hounsfield units. This is technically indeterminate; however, this previously was consistent with a benign cyst on October 20, 2020. There are subcentimeter low-attenuation renal lesions bilaterally which are too small to characterize. The visualized portions of the intestinal tract are not distended. There is no free intraperitoneal air. There is no drainable fluid collection. There is no free fluid in the abdomen. There are atherosclerotic calcifications. There is no identified abnormally enlarged lymph node in the abdomen specifically meeting CT size criteria for adenopathy. There are multilevel degenerative changes of the spine. There is no identified aggressive bone lesion in the included [id number]. There is no otherwise identified acute bony abnormality. IMPRESSION: 1. Substantial interval decrease in size of the previously noted heterogeneous low-attenuation lesion in the right lobe of the liver. This may reflect a treatment related response. Recommend correlation with history and prior biopsy results. The lesion currently measures 4.2 x 3.9 x 5.9 cm in size compared to 8.1 x 9.8 x 10.7 cm in size on October 20, 2020. 2. Findings consistent with cirrhosis with mild splenomegaly. 3. No identified pulmonary nodule or lung mass. 4. No additional identified lesion concerning for site of malignancy in the chest or abdomen. Dictated by: Dictated on workstation # [id number]
--- NOTE | 2021-06-26 14:46 | Diagnostic Imaging Report ---
PROCEDURE: CT lumbar spine with contrast. TECHNIQUE: Multiple contiguous axial images were obtained through the lumbar spine after the intrathecal administration of contrast. Sagittal and coronal reformations were then performed. Auto Exposure Controls were utilized during the CT exam to meet ALARA standards for radiation dose reduction. INDICATION: Back pain and history of malignancy. COMPARISON with CT 02/14/2021 FINDINGS: Destructive lytic lesion in the left hemisacrum is again noted. There is at least some associated new bone formation along the margins of the lytic process likely owing to partial healing. No yeimy-sacral soft tissue mass. There is at least some healing most notably along the posterior aspect of the lytic lesion which today measures roughly 5.6 cm transverse by 3 cm AP. When measured on the prior along the same axis the dimensions were 6.3 x 4.8 cm. There is no new lesion apparent. There are degenerative changes throughout the lumbar spine, chronic. No abnormal intracanalicular enhancing tissue is found. No acute epidural abnormality. The lumbar statures are normal. The alignment anatomic. No acute or chronic lumbar spinal fracture. No high-grade stenosis. IMPRESSION: Further new bone formation and partial healing associated with lytic lesion left hemisacrum, presumed to reflect at least some degree of treatment response. No new lesion found. No adverse development. The lumbar spine itself appeared intact. Dictated by: Dictated on workstation # [id number]
== END ==
LOC: RAD 11:45
PROVIDERS: ATTEND Internal Medicine Hematology & Oncology
DX: K76.9 Liver disease, unspecified (principal); R16.1 Splenomegaly, not elsewhere classified; Z85.9 Personal history of malignant neoplasm, unspecified
CPT/HCPCS: 71260; 72132; 74160

== ENCOUNTER 2021-07-16 09:05 | Outpatient (RCR) | payer OTHER ==
[2021-06-22 09:41] LABS: BASOPHILS % (AUTO) 1 % (0-10); EOSINOPHILS # (AUTO) 0.6 10^3/uL (0.0-0.3); PLATELET COUNT 113 10^3/uL (130-400)
[2021-06-22 09:43] LABS: EOSINOPHILS % (AUTO) 11 % (0-10); HEMATOCRIT 46 % (40-54); HEMOGLOBIN 15.1 g/dL (13.3-17.7); LYMPHOCYTES # (AUTO) 0.9 10^3/uL (1.0-4.0); LYMPHOCYTES % (AUTO) 18 % (12-44); MEAN CORPUSCULAR HEMOGLOBIN 33 pg (25-34); MEAN CORPUSCULAR HGB CONC 33 g/dL (32-36); MEAN CORPUSCULAR VOLUME 100 fL (80-99); MONOCYTES # (AUTO) 0.6 10^3/uL (0.0-1.0); MONOCYTES % (AUTO) 11 % (0-12); NEUTROPHILS % (AUTO) 59 % (42-75); WHITE BLOOD COUNT 5.1 10^3/uL (4.3-11.0)
[2021-06-22 10:02] LABS: ALBUMIN 3.7 GM/DL (3.2-4.5); BILIRUBIN,TOTAL 0.4 MG/DL (0.1-1.0); CALCIUM 9.3 MG/DL (8.5-10.1); CREATININE SERUM 0.93 MG/DL (0.60-1.30); TOTAL PROTEIN 7.8 GM/DL (6.4-8.2)
[~2021-07-16 09:05] MED LIST changes: +ACETAMINOPHEN 500 MG TAB (TYLENOL) CANCER CTR ONE; +ACETAMINOPHEN 500 MG TAB (TYLENOL) CANCER CTR PO PRN; +ATENOLOL 50 MG (TENORMIN) TAB PO ONE; +ATEZOLIZUMAB 1,200 MG in NS (IVPB) CANCER CENTER 250 ML IV SCH; +BEVACIZUMAB BVZR IV SCH; -CATHETER FLUSH 10 ML SYR IV PRN; -HOLD METFORMIN - RECEIVED CONTRAST 20 ML VIAL IV SCH; -IOHEXOL 350 MG/ML 100 ML (OMNIPAQUE 350) VIAL IV ONE; -NS 100 ML (IVPB) BAG IV ONE; +NS IV 1000 ML (CANCER CTR) IV SCH; +NS IV SCH; +diphenhydrAMINE 25 MG TAB (BENADRYL) CANCER CENTER PO ONE; +diphenhydrAMINE 25 MG TAB (BENADRYL) CANCER CENTER PO SCH
[2021-07-16 09:41] LABS: BASOPHILS % (AUTO) 1 % (0-10); EOSINOPHILS # (AUTO) 0.7 10^3/uL (0.0-0.3); EOSINOPHILS % (AUTO) 16 % (0-10); HEMATOCRIT 46 % (40-54); HEMOGLOBIN 15.2 g/dL (13.3-17.7); LYMPHOCYTES # (AUTO) 0.8 10^3/uL (1.0-4.0); LYMPHOCYTES % (AUTO) 20 % (12-44); MEAN CORPUSCULAR HEMOGLOBIN 33 pg (25-34); MEAN CORPUSCULAR HGB CONC 33 g/dL (32-36); MEAN CORPUSCULAR VOLUME 98 fL (80-99); MEAN PLATELET VOLUME 10.8 fL (9.0-12.2); MONOCYTES # (AUTO) 0.4 10^3/uL (0.0-1.0); MONOCYTES % (AUTO) 10 % (0-12); NEUTROPHILS # (AUTO) 2.3 10^3/uL (1.8-7.8); NEUTROPHILS % (AUTO) 54 % (42-75); WHITE BLOOD COUNT 4.3 10^3/uL (4.3-11.0)
[2021-07-16 09:42] LABS: PLATELET COUNT 92 10^3/uL (130-400)
[2021-07-16 09:58] LABS: ALBUMIN 2.8 GM/DL (3.2-4.5); BILIRUBIN,TOTAL 0.5 MG/DL (0.1-1.0); CALCIUM 7.2 MG/DL (8.5-10.1); CREATININE SERUM 0.66 MG/DL (0.60-1.30); POTASSIUM 3.1 MMOL/L (3.6-5.0); TOTAL PROTEIN 5.9 GM/DL (6.4-8.2)
== END 2021-07-19 | disposition home or self-care (01) ==
LOC: ONC 09:05
PROVIDERS: ATTEND Internal Medicine Hematology & Oncology
DX: Z51.11 Encounter for antineoplastic chemotherapy (principal); Z45.2 Encounter for adjustment and management of vascular access device; C22.0 Liver cell carcinoma; C79.51 Secondary malignant neoplasm of bone; B18.2 Chronic viral hepatitis C; J44.9 Chronic obstructive pulmonary disease, unspecified; I25.10 Atherosclerotic heart disease of native coronary artery without angina pectoris; E78.5 Hyperlipidemia, unspecified; I11.0 Hypertensive heart disease with heart failure; I65.29 Occlusion and stenosis of unspecified carotid artery; E66.01 Morbid (severe) obesity due to excess calories; D69.6 Thrombocytopenia, unspecified; I48.91 Unspecified atrial fibrillation; F19.10 Other psychoactive substance abuse, uncomplicated; Z72.0 Tobacco use
CPT/HCPCS: 36415; 36591; 80053; 85025; 96360; 96375; 96411; 96413; 96417; 99213

== ENCOUNTER 2021-08-06 09:03 | Outpatient (RCR) | payer OTHER ==
[~2021-08-06] VITALS: Ht 182.9 cm; Wt 131.5 kg
[~2021-08-06 09:03] MED LIST changes: -ACETAMINOPHEN 500 MG TAB (TYLENOL) CANCER CTR ONE; -ACETAMINOPHEN 500 MG TAB (TYLENOL) CANCER CTR PO PRN; +ACETAMINOPHEN 500 MG TAB (TYLENOL) PO SCH; -ATENOLOL 50 MG (TENORMIN) TAB PO ONE; -ATEZOLIZUMAB 1,200 MG in NS (IVPB) CANCER CENTER 250 ML IV SCH; +ATEZOLIZUMAB IV SCH; +HEParin (CENTRAL IV FLUSH) 500 UNIT/5 ML SYR IV PRN; -diphenhydrAMINE 25 MG TAB (BENADRYL) CANCER CENTER PO ONE; -diphenhydrAMINE 25 MG TAB (BENADRYL) CANCER CENTER PO SCH; +diphenhydrAMINE 25 MG TAB (BENADRYL) PO SCH
[2021-08-06 09:35] LABS: HEMOGLOBIN 15.1 g/dL (13.3-17.7)
[2021-08-06 09:37] LABS: BASOPHILS % (AUTO) 1 % (0-10); EOSINOPHILS # (AUTO) 0.5 10^3/uL (0.0-0.3); EOSINOPHILS % (AUTO) 12 % (0-10); HEMATOCRIT 45 % (40-54); LYMPHOCYTES # (AUTO) 0.9 10^3/uL (1.0-4.0); LYMPHOCYTES % (AUTO) 21 % (12-44); MEAN CORPUSCULAR HEMOGLOBIN 33 pg (25-34); MEAN CORPUSCULAR HGB CONC 34 g/dL (32-36); MEAN CORPUSCULAR VOLUME 98 fL (80-99); MEAN PLATELET VOLUME 11.3 fL (9.0-12.2); MONOCYTES # (AUTO) 0.4 10^3/uL (0.0-1.0); MONOCYTES % (AUTO) 10 % (0-12); NEUTROPHILS # (AUTO) 2.4 10^3/uL (1.8-7.8); NEUTROPHILS % (AUTO) 57 % (42-75); PLATELET COUNT 105 10^3/uL (130-400); WHITE BLOOD COUNT 4.2 10^3/uL (4.3-11.0)
[2021-08-06 09:53] LABS: ALBUMIN 2.9 GM/DL (3.2-4.5); BILIRUBIN,TOTAL 0.5 MG/DL (0.1-1.0); CALCIUM 7.3 MG/DL (8.5-10.1); CREATININE SERUM 0.73 MG/DL (0.60-1.30); POTASSIUM 3.2 MMOL/L (3.6-5.0); TOTAL PROTEIN 6.1 GM/DL (6.4-8.2)
== END 2021-08-18 | disposition home or self-care (01) ==
LOC: ONC 09:03
PROVIDERS: ATTEND Internal Medicine Hematology & Oncology
DX: Z51.11 Encounter for antineoplastic chemotherapy (principal); Z45.2 Encounter for adjustment and management of vascular access device; C22.0 Liver cell carcinoma; C61 Malignant neoplasm of prostate
CPT/HCPCS: 36591; 80053; 85025; 96360; 96413; 96417; 99213

== ENCOUNTER 2021-08-27 08:27 | Outpatient (RCR) | payer OTHER ==
[2021-08-27 09:03] LABS: BASOPHILS % (AUTO) 1 % (0-10); HEMATOCRIT 45 % (40-54); HEMOGLOBIN 15.3 g/dL (13.3-17.7); LYMPHOCYTES % (AUTO) 20 % (12-44); MEAN CORPUSCULAR HEMOGLOBIN 33 pg (25-34); MEAN CORPUSCULAR HGB CONC 34 g/dL (32-36); MEAN CORPUSCULAR VOLUME 99 fL (80-99)
[2021-08-27 09:05] LABS: EOSINOPHILS # (AUTO) 0.6 10^3/uL (0.0-0.3); EOSINOPHILS % (AUTO) 11 % (0-10); LYMPHOCYTES # (AUTO) 1.1 10^3/uL (1.0-4.0); MEAN PLATELET VOLUME 10.8 fL (9.0-12.2); MONOCYTES # (AUTO) 0.6 10^3/uL (0.0-1.0); MONOCYTES % (AUTO) 11 % (0-12); NEUTROPHILS # (AUTO) 3.1 10^3/uL (1.8-7.8); NEUTROPHILS % (AUTO) 57 % (42-75); PLATELET COUNT 124 10^3/uL (130-400); WHITE BLOOD COUNT 5.4 10^3/uL (4.3-11.0)
[2021-08-27 09:08] LABS: ALBUMIN 3.7 GM/DL (3.2-4.5)
[2021-08-27 09:09] LABS: POTASSIUM 3.9 MMOL/L (3.6-5.0)
[2021-08-27 09:10] LABS: CALCIUM 9.3 MG/DL (8.5-10.1)
[2021-08-27 09:11] LABS: TOTAL PROTEIN 7.8 GM/DL (6.4-8.2)
[2021-08-27 09:13] LABS: BILIRUBIN,TOTAL 0.5 MG/DL (0.1-1.0)
[2021-08-27 09:15] LABS: CREATININE SERUM 0.99 MG/DL (0.60-1.30)
== END 2021-09-18 | disposition home or self-care (01) ==
LOC: ONC 08:27
PROVIDERS: ATTEND Internal Medicine Hematology & Oncology
DX: C22.0 Liver cell carcinoma (principal); C79.51 Secondary malignant neoplasm of bone; B18.2 Chronic viral hepatitis C
CPT/HCPCS: 36591; 80053; 85025; 96360; 96375; 96413; 96417; 99213

== ENCOUNTER → 2021-09-03 | Outpatient (CLI) | payer OTHER ==
[~2021-09-03] MED LIST changes: -ACETAMINOPHEN 500 MG TAB (TYLENOL) PO SCH; -ATEZOLIZUMAB IV SCH; -BEVACIZUMAB BVZR IV SCH; -HEParin (CENTRAL IV FLUSH) 500 UNIT/5 ML SYR IV PRN; +IOHEXOL 350 MG/ML 100 ML (OMNIPAQUE 350) VIAL IV ONE; +NS 100 ML (IVPB) BAG IV ONE; -NS IV 1000 ML (CANCER CTR) IV SCH; -NS IV SCH; -diphenhydrAMINE 25 MG TAB (BENADRYL) PO SCH
--- NOTE | 2021-09-03 15:23 | Diagnostic Imaging Report ---
PROCEDURE: CT chest and abdomen with contrast. TECHNIQUE: Multiple contiguous axial images were obtained through the chest and abdomen after the administration of intravenous contrast. Auto Exposure Controls were utilized during the CT exam to meet ALARA standards for radiation dose reduction. INDICATION: Painful limitations and range of motion. History of malignancy. Compared with a CT chest and abdomen performed 06/26/2021. CHEST: No lung mass or suspicious pulmonary nodule. No findings of pulmonary edema or pneumonia. No effusion, pneumothorax or lymphadenopathy. There is no acute or suspicious chest wall pathology. ABDOMEN: Ill-defined hypodense mass segment 6 right hepatic lobe measures about 3.4 x 3.4 cm, previously 4.2 x 4.0 cm, slightly decreased background features of cirrhosis unchanged. No hepatic vascular obstruction. No new liver lesion. Small hiatal hernia chronic. Upper limits spleen size stable and nonfocal. There is no ascites. There is no abdominal lymphadenopathy. The atherosclerotic aorta is nonaneurysmal. Renal cysts chronic. No hydronephrosis. The adrenals negative. The pancreas unremarkable. No biliary pathology. IMPRESSION: Cirrhotic liver with splenomegaly and features of portal hypertension. Right lobe liver mass measures slightly smaller. No new liver lesion. No adenopathy or ascites. No evidence for thoracic metastasis. Dictated by: Dictated on workstation # [id number]
--- NOTE | 2021-09-03 17:21 | Diagnostic Imaging Report ---
PROCEDURE: CT lumbar spine with contrast. TECHNIQUE: Multiple contiguous axial images were obtained through the lumbar spine after the intrathecal administration of contrast. Sagittal and coronal reformations were then performed. Auto Exposure Controls were utilized during the CT exam to meet ALARA standards for radiation dose reduction. INDICATION: History of cancer with metastatic disease. Now with back pain and limited range of motion. COMPARISON: 06/26/2021 FINDINGS: Static alignment of the lumbar spine is maintained. There is no significant anteroretrolisthesis. There is no evidence of jumped facets. Lumbar vertebral body heights remain intact. There is no new acute fracture of the lumbar spine. Note is again made of osteolytic lesion involving the left S1 region. There is collapse of the superior cortex consistent with probable pathologic fracture of the S1 vertebral body. This too however is stable compared to prior study. There are mild multilevel degenerative changes consistent with intervertebral disc height loss with anterior and posterior disc osteophyte complex formations. There is also moderate multilevel ligamentum flavum laxity and facet arthropathy. This results in multilevel spinal canal stenoses, greatest at the L3-L4 and L4-L5 levels. There is also multilevel neuroforaminal narrowing. Pre and paravertebral soft tissue structures are unremarkable. Note is made of diffuse calcified aortic and arterial atherosclerosis. IMPRESSION: 1. Redemonstration of osteolytic lesion to the S1 vertebral body with evidence of partially healed pathologic fracture. 2. No new osteolytic lesion or other evidence of new pathologic fracture. 3. Moderate multilevel degenerative changes, greatest at the L3-L4 and L4-L5 levels, as above. Dictated by: Dictated on workstation # [id number]
== END ==
LOC: RAD 12:15
PROVIDERS: ATTEND Internal Medicine Hematology & Oncology
DX: M47.816 Spondylosis without myelopathy or radiculopathy, lumbar region (principal); K74.60 Unspecified cirrhosis of liver; R16.1 Splenomegaly, not elsewhere classified; Z85.9 Personal history of malignant neoplasm, unspecified
CPT/HCPCS: 71260; 72132; 74160

== ENCOUNTER → 2021-09-26 | Outpatient (CLI) | payer OTHER ==
[~2021-09-26] VITALS: Ht 188 cm; Wt 133.8 kg
[~2021-09-26] MED LIST changes: +DOCU-26 PO; +FURO40TA4 PO; -IOHEXOL 350 MG/ML 100 ML (OMNIPAQUE 350) VIAL IV ONE; +MORPHINE ER PO; -NS 100 ML (IVPB) BAG IV ONE
== END | disposition home or self-care (01) ==
LOC: PREOP 05:34
PROVIDERS: ATTEND Surgery
DX: Z01.818 Encounter for other preprocedural examination (principal)

== ENCOUNTER 2021-10-10 09:23 | Outpatient (RCR) | payer OTHER ==
[2021-09-19 10:18] LABS: BASOPHILS % (AUTO) 0 % (0-10); EOSINOPHILS # (AUTO) 0.6 10^3/uL (0.0-0.3); EOSINOPHILS % (AUTO) 11 % (0-10); HEMATOCRIT 44 % (40-54); HEMOGLOBIN 15.1 g/dL (13.3-17.7); LYMPHOCYTES # (AUTO) 0.9 10^3/uL (1.0-4.0); LYMPHOCYTES % (AUTO) 16 % (12-44); MEAN CORPUSCULAR HEMOGLOBIN 34 pg (25-34); MEAN CORPUSCULAR HGB CONC 34 g/dL (32-36); MEAN CORPUSCULAR VOLUME 99 fL (80-99); MEAN PLATELET VOLUME 11.3 fL (9.0-12.2); MONOCYTES # (AUTO) 0.6 10^3/uL (0.0-1.0); MONOCYTES % (AUTO) 12 % (0-12); NEUTROPHILS # (AUTO) 3.1 10^3/uL (1.8-7.8); NEUTROPHILS % (AUTO) 60 % (42-75); PLATELET COUNT 101 10^3/uL (130-400); WHITE BLOOD COUNT 5.2 10^3/uL (4.3-11.0)
[2021-09-19 10:24] LABS: ALBUMIN 3.6 GM/DL (3.2-4.5); BILIRUBIN,TOTAL 0.7 MG/DL (0.1-1.0); CALCIUM 8.9 MG/DL (8.5-10.1); CREATININE SERUM 0.82 MG/DL (0.60-1.30); POTASSIUM 3.9 MMOL/L (3.6-5.0); TOTAL PROTEIN 7.5 GM/DL (6.4-8.2)
[~2021-10-10 09:23] MED LIST changes: +ACETAMINOPHEN 500 MG TAB (TYLENOL) PO SCH; +ATEZOLIZUMAB IV SCH; +BEVACIZUMAB BVZR IV SCH; +HEParin (CENTRAL IV FLUSH) 500 UNIT/5 ML SYR IV PRN; +NS IV 1000 ML (CANCER CTR) IV SCH; +NS IV SCH; +diphenhydrAMINE 25 MG TAB (BENADRYL) PO SCH
[2021-10-10 09:58] LABS: BASOPHILS % (AUTO) 0 % (0-10); MEAN CORPUSCULAR HEMOGLOBIN 33 pg (25-34); NEUTROPHILS # (AUTO) 3.1 10^3/uL (1.8-7.8)
[2021-10-10 10:00] LABS: EOSINOPHILS # (AUTO) 0.5 10^3/uL (0.0-0.3); EOSINOPHILS % (AUTO) 10 % (0-10); HEMATOCRIT 47 % (40-54); HEMOGLOBIN 15.8 g/dL (13.3-17.7); LYMPHOCYTES # (AUTO) 0.9 10^3/uL (1.0-4.0); LYMPHOCYTES % (AUTO) 18 % (12-44); MEAN CORPUSCULAR HGB CONC 34 g/dL (32-36); MEAN CORPUSCULAR VOLUME 98 fL (80-99); MEAN PLATELET VOLUME 11.5 fL (9.0-12.2); MONOCYTES # (AUTO) 0.4 10^3/uL (0.0-1.0); MONOCYTES % (AUTO) 7 % (0-12); NEUTROPHILS % (AUTO) 64 % (42-75); PLATELET COUNT 110 10^3/uL (130-400); WHITE BLOOD COUNT 4.9 10^3/uL (4.3-11.0)
[2021-10-10 10:21] LABS: ALBUMIN 3.7 GM/DL (3.2-4.5); BILIRUBIN,TOTAL 0.8 MG/DL (0.1-1.0); CALCIUM 9.2 MG/DL (8.5-10.1); CREATININE SERUM 0.93 MG/DL (0.60-1.30); POTASSIUM 3.9 MMOL/L (3.6-5.0); TOTAL PROTEIN 7.7 GM/DL (6.4-8.2)
== END 2021-10-18 | disposition home or self-care (01) ==
LOC: ONC 09:23
PROVIDERS: ATTEND Internal Medicine Hematology & Oncology
DX: Z51.11 Encounter for antineoplastic chemotherapy (principal); Z45.2 Encounter for adjustment and management of vascular access device; C22.0 Liver cell carcinoma; C79.51 Secondary malignant neoplasm of bone; B18.2 Chronic viral hepatitis C; I48.91 Unspecified atrial fibrillation; J44.9 Chronic obstructive pulmonary disease, unspecified; I25.10 Atherosclerotic heart disease of native coronary artery without angina pectoris; E78.5 Hyperlipidemia, unspecified; E66.01 Morbid (severe) obesity due to excess calories; I11.0 Hypertensive heart disease with heart failure; I50.32 Chronic diastolic (congestive) heart failure; K74.60 Unspecified cirrhosis of liver; Z72.0 Tobacco use
CPT/HCPCS: 36591; 80053; 85025; 96360; 96361; 96375; 96413; 96417

== ENCOUNTER 2021-10-31 08:35 | Outpatient (RCR) | payer OTHER ==
[2021-10-31 09:13] LABS: BASOPHILS % (AUTO) 1 % (0-10)
[2021-10-31 09:15] LABS: EOSINOPHILS # (AUTO) 0.8 10^3/uL (0.0-0.3); EOSINOPHILS % (AUTO) 15 % (0-10); HEMATOCRIT 48 % (40-54); HEMOGLOBIN 16.2 g/dL (13.3-17.7); LYMPHOCYTES % (AUTO) 20 % (12-44); MEAN CORPUSCULAR HEMOGLOBIN 33 pg (25-34); MEAN CORPUSCULAR HGB CONC 34 g/dL (32-36); MEAN CORPUSCULAR VOLUME 98 fL (80-99); MEAN PLATELET VOLUME 11.2 fL (9.0-12.2); MONOCYTES # (AUTO) 0.5 10^3/uL (0.0-1.0); MONOCYTES % (AUTO) 10 % (0-12); NEUTROPHILS # (AUTO) 2.9 10^3/uL (1.8-7.8); NEUTROPHILS % (AUTO) 55 % (42-75); WHITE BLOOD COUNT 5.2 10^3/uL (4.3-11.0)
[2021-10-31 09:21] LABS: PLATELET COUNT 106 10^3/uL (130-400)
[2021-10-31 10:04] LABS: ALBUMIN 3.7 GM/DL (3.2-4.5); BILIRUBIN,TOTAL 0.5 MG/DL (0.1-1.0); CALCIUM 9.4 MG/DL (8.5-10.1); CREATININE SERUM 1.08 MG/DL (0.60-1.30); POTASSIUM 3.8 MMOL/L (3.6-5.0); TOTAL PROTEIN 7.9 GM/DL (6.4-8.2)
== END 2021-11-09 10:00 | disposition home or self-care (01) ==
LOC: ONC 08:35
PROVIDERS: ATTEND Internal Medicine Hematology & Oncology
DX: Z51.11 Encounter for antineoplastic chemotherapy (principal); Z45.2 Encounter for adjustment and management of vascular access device; C22.0 Liver cell carcinoma; C79.51 Secondary malignant neoplasm of bone; B18.2 Chronic viral hepatitis C; J44.9 Chronic obstructive pulmonary disease, unspecified; I25.10 Atherosclerotic heart disease of native coronary artery without angina pectoris; E78.5 Hyperlipidemia, unspecified; E66.01 Morbid (severe) obesity due to excess calories; I11.0 Hypertensive heart disease with heart failure; I50.32 Chronic diastolic (congestive) heart failure
CPT/HCPCS: 36591; 80053; 85025; 96360; 96361; 96367; 96375; 96413; 96417

== ENCOUNTER 2021-12-12 08:28 | Outpatient (RCR) | payer OTHER ==
[2021-11-21 09:03] LABS: MEAN CORPUSCULAR VOLUME 98 fL (80-99)
[2021-11-21 09:05] LABS: BASOPHILS % (AUTO) 0 % (0-10); EOSINOPHILS # (AUTO) 0.6 10^3/uL (0.0-0.3); EOSINOPHILS % (AUTO) 12 % (0-10); HEMATOCRIT 47 % (40-54); HEMOGLOBIN 15.9 g/dL (13.3-17.7); LYMPHOCYTES % (AUTO) 19 % (12-44); MEAN CORPUSCULAR HEMOGLOBIN 33 pg (25-34); MEAN CORPUSCULAR HGB CONC 34 g/dL (32-36); MONOCYTES # (AUTO) 0.5 10^3/uL (0.0-1.0); MONOCYTES % (AUTO) 9 % (0-12); NEUTROPHILS # (AUTO) 3.1 10^3/uL (1.8-7.8); NEUTROPHILS % (AUTO) 60 % (42-75); PLATELET COUNT 104 10^3/uL (130-400); WHITE BLOOD COUNT 5.1 10^3/uL (4.3-11.0)
[2021-11-21 09:24] LABS: ALBUMIN 3.7 GM/DL (3.2-4.5); BILIRUBIN,TOTAL 0.8 MG/DL (0.1-1.0); CALCIUM 9.3 MG/DL (8.5-10.1); CREATININE SERUM 0.95 MG/DL (0.60-1.30); POTASSIUM 3.8 MMOL/L (3.6-5.0); TOTAL PROTEIN 7.9 GM/DL (6.4-8.2)
[2021-12-12 09:07] LABS: MEAN CORPUSCULAR HEMOGLOBIN 34 pg (25-34); MEAN CORPUSCULAR HGB CONC 34 g/dL (32-36); MEAN CORPUSCULAR VOLUME 99 fL (80-99); NEUTROPHILS % (AUTO) 58 % (42-75)
[2021-12-12 09:09] LABS: BASOPHILS % (AUTO) 1 % (0-10); EOSINOPHILS # (AUTO) 0.5 10^3/uL (0.0-0.3); EOSINOPHILS % (AUTO) 11 % (0-10); HEMATOCRIT 46 % (40-54); HEMOGLOBIN 15.5 g/dL (13.3-17.7); LYMPHOCYTES # (AUTO) 0.8 10^3/uL (1.0-4.0); LYMPHOCYTES % (AUTO) 21 % (12-44); MONOCYTES # (AUTO) 0.4 10^3/uL (0.0-1.0); MONOCYTES % (AUTO) 9 % (0-12); NEUTROPHILS # (AUTO) 2.4 10^3/uL (1.8-7.8); WHITE BLOOD COUNT 4.1 10^3/uL (4.3-11.0)
[2021-12-12 09:20] LABS: PLATELET COUNT 105 10^3/uL (130-400)
[2021-12-12 09:35] LABS: ALBUMIN 3.6 GM/DL (3.2-4.5); BILIRUBIN,TOTAL 0.5 MG/DL (0.1-1.0); CALCIUM 9.3 MG/DL (8.5-10.1); CREATININE SERUM 0.97 MG/DL (0.60-1.30); POTASSIUM 3.8 MMOL/L (3.6-5.0); TOTAL PROTEIN 7.8 GM/DL (6.4-8.2)
== END 2021-12-19 | disposition home or self-care (01) ==
LOC: ONC 08:28
PROVIDERS: ATTEND Internal Medicine Hematology & Oncology
DX: Z51.11 Encounter for antineoplastic chemotherapy (principal); Z45.2 Encounter for adjustment and management of vascular access device; C22.0 Liver cell carcinoma; C79.51 Secondary malignant neoplasm of bone; B18.2 Chronic viral hepatitis C; J44.9 Chronic obstructive pulmonary disease, unspecified; I25.10 Atherosclerotic heart disease of native coronary artery without angina pectoris; E78.5 Hyperlipidemia, unspecified; E66.01 Morbid (severe) obesity due to excess calories; I11.0 Hypertensive heart disease with heart failure; I50.32 Chronic diastolic (congestive) heart failure; Z72.0 Tobacco use
CPT/HCPCS: 36591; 80053; 85025; 96360; 96361; 96375; 96413; 96417

== ENCOUNTER 2022-01-17 10:55 | Outpatient (RCR) | payer OTHER ==
[~2022-01-17 10:55] MED LIST changes: +ACETAMINOPHEN 500 MG TAB (TYLENOL) PO SCH; +ATEZOLIZUMAB IV SCH; +BEVACIZUMAB BVZR IV SCH; -CATHETER FLUSH 10 ML SYR IV PRN; +HEParin (CENTRAL IV FLUSH) 500 UNIT/5 ML SYR IV PRN; -HOLD METFORMIN - RECEIVED CONTRAST 20 ML VIAL IV SCH; -IOHEXOL 350 MG/ML 100 ML (OMNIPAQUE 350) VIAL IV ONE; -NS 100 ML (IVPB) BAG IV ONE; +NS IV 1000 ML (CANCER CTR) IV SCH; +NS IV SCH; +diphenhydrAMINE 25 MG TAB (BENADRYL) PO SCH
[2022-01-17 11:34] LABS: BASOPHILS % (AUTO) 1 % (0-10); MONOCYTES # (AUTO) 0.4 10^3/uL (0.0-1.0)
[2022-01-17 11:36] LABS: EOSINOPHILS # (AUTO) 0.5 10^3/uL (0.0-0.3); EOSINOPHILS % (AUTO) 12 % (0-10); HEMATOCRIT 46 % (40-54); HEMOGLOBIN 15.9 g/dL (13.3-17.7); LYMPHOCYTES # (AUTO) 0.8 10^3/uL (1.0-4.0); LYMPHOCYTES % (AUTO) 19 % (12-44); MEAN CORPUSCULAR HEMOGLOBIN 34 pg (25-34); MEAN CORPUSCULAR HGB CONC 34 g/dL (32-36); MEAN CORPUSCULAR VOLUME 100 fL (80-99); MEAN PLATELET VOLUME 10.9 fL (9.0-12.2); MONOCYTES % (AUTO) 9 % (0-12); NEUTROPHILS # (AUTO) 2.6 10^3/uL (1.8-7.8); NEUTROPHILS % (AUTO) 59 % (42-75); PLATELET COUNT 94 10^3/uL (130-400); WHITE BLOOD COUNT 4.4 10^3/uL (4.3-11.0)
[2022-01-17 11:54] LABS: ALBUMIN 3.7 GM/DL (3.2-4.5); BILIRUBIN,TOTAL 0.8 MG/DL (0.1-1.0); CALCIUM 9.2 MG/DL (8.5-10.1); CREATININE SERUM 1.01 MG/DL (0.60-1.30); POTASSIUM 4.1 MMOL/L (3.6-5.0); TOTAL PROTEIN 8.1 GM/DL (6.4-8.2)
== END 2022-01-18 | disposition home or self-care (01) ==
LOC: ONC 10:55
PROVIDERS: ATTEND Internal Medicine Hematology & Oncology
DX: C22.0 Liver cell carcinoma (principal); C79.51 Secondary malignant neoplasm of bone; B18.2 Chronic viral hepatitis C; J44.9 Chronic obstructive pulmonary disease, unspecified; I25.10 Atherosclerotic heart disease of native coronary artery without angina pectoris; E78.5 Hyperlipidemia, unspecified; E66.01 Morbid (severe) obesity due to excess calories; I11.0 Hypertensive heart disease with heart failure; I50.32 Chronic diastolic (congestive) heart failure; Z72.0 Tobacco use
CPT/HCPCS: 80053; 85025; 96523; 99213

== ENCOUNTER → 2022-01-17 | Outpatient (CLI) | payer OTHER ==
[~2022-01-17] MED LIST changes: -ACETAMINOPHEN 500 MG TAB (TYLENOL) PO SCH; -ATEZOLIZUMAB IV SCH; -BEVACIZUMAB BVZR IV SCH; +CATHETER FLUSH 10 ML SYR IV PRN; -HEParin (CENTRAL IV FLUSH) 500 UNIT/5 ML SYR IV PRN; +HOLD METFORMIN - RECEIVED CONTRAST 20 ML VIAL IV SCH; +IOHEXOL 350 MG/ML 100 ML (OMNIPAQUE 350) VIAL IV ONE; +NS 100 ML (IVPB) BAG IV ONE; -NS IV 1000 ML (CANCER CTR) IV SCH; -NS IV SCH; +POTA-177 PO; -POTA10TA37 PO; -diphenhydrAMINE 25 MG TAB (BENADRYL) PO SCH
--- NOTE | 2022-01-17 12:08 | Diagnostic Imaging Report ---
PROCEDURE: CT chest, abdomen, and pelvis with contrast. TECHNIQUE: Multiple contiguous axial images were obtained through the chest, abdomen, and pelvis after the administration of intravenous contrast. Auto Exposure Controls were utilized during the CT exam to meet ALARA standards for radiation dose reduction. INDICATION: Malignancy, follow-up. Comparison is made prior CT from 09/03/2021. CT CHEST: Right chest wall port has the tip in SVC. No axillary lymphadenopathy is seen. No mediastinal or hilar lymphadenopathy is detected. No pericardial or pleural fluid is detected. Paraseptal emphysematous changes are again noted in the upper lung kendrick. No infiltrates, nodules or masses are identified. CT abdomen and pelvis: A nodular contour to the liver is again noted. A low-attenuation lesion in the right lobe continues to show decrease in size measuring 3.5 x 2.5 cm compared with 3.9 x 3.3 cm when measured by similar technique. No new liver mass is detected. Gallbladder is unremarkable. There is no biliary ductal dilatation. The pancreas and spleen are stable. No adrenal mass is detected. Low-attenuation lesions in both kidneys appear to be stable. Aorta is calcified but nonaneurysmal. No central retroperitoneal or mesenteric lymphadenopathy is seen. Small and large bowel loops appear to be normal caliber. There is moderate stool in the colon, perhaps owing to constipation. There is no ascites. No pelvic lymphadenopathy is seen. The bladder and prostate are unremarkable. Bony structures are intact. IMPRESSION: 1. Unremarkable CT of the chest. No thoracic lymphadenopathy or pulmonary metastatic disease is detected. 2. Continued decrease in size of right lobe liver lesion when compared prior study from 09/03/2021. No new liver mass is detected. Remainder of CT abdomen and pelvis is stable. Dictated by: Dictated on workstation # [id number]
== END ==
LOC: RAD 11:33
PROVIDERS: ATTEND Internal Medicine Hematology & Oncology
DX: C22.0 Liver cell carcinoma (principal)
CPT/HCPCS: 71260; 74177

== ENCOUNTER 2022-02-06 10:26 | Outpatient (RCR) | payer OTHER ==
[~2022-02-06 10:26] MED LIST changes: +ALBU8.5H6 IH; -RT-ALBUINH IH
[2022-02-06 11:10] LABS: BASOPHILS % (AUTO) 1 % (0-10); HEMATOCRIT 46 % (40-54)
[2022-02-06 11:12] LABS: EOSINOPHILS # (AUTO) 0.5 10^3/uL (0.0-0.3); EOSINOPHILS % (AUTO) 11 % (0-10); LYMPHOCYTES # (AUTO) 0.9 10^3/uL (1.0-4.0); LYMPHOCYTES % (AUTO) 19 % (12-44); MEAN CORPUSCULAR HEMOGLOBIN 35 pg (25-34); MEAN CORPUSCULAR HGB CONC 35 g/dL (32-36); MEAN CORPUSCULAR VOLUME 100 fL (80-99); MEAN PLATELET VOLUME 10.7 fL (9.0-12.2); MONOCYTES # (AUTO) 0.4 10^3/uL (0.0-1.0); MONOCYTES % (AUTO) 8 % (0-12); NEUTROPHILS # (AUTO) 2.9 10^3/uL (1.8-7.8); NEUTROPHILS % (AUTO) 61 % (42-75); WHITE BLOOD COUNT 4.8 10^3/uL (4.3-11.0)
[2022-02-06 11:14] LABS: PLATELET COUNT 94 10^3/uL (130-400)
[2022-02-06 11:47] LABS: ALBUMIN 3.8 GM/DL (3.2-4.5); BILIRUBIN,TOTAL 0.7 MG/DL (0.1-1.0); CALCIUM 9.2 MG/DL (8.5-10.1); CREATININE SERUM 1.12 MG/DL (0.60-1.30); POTASSIUM 3.9 MMOL/L (3.6-5.0); TOTAL PROTEIN 8.3 GM/DL (6.4-8.2)
== END 2022-02-18 | disposition home or self-care (01) ==
LOC: ONC 10:26
PROVIDERS: ATTEND Internal Medicine Hematology & Oncology
DX: Z51.11 Encounter for antineoplastic chemotherapy (principal); Z45.2 Encounter for adjustment and management of vascular access device; C22.0 Liver cell carcinoma; C79.51 Secondary malignant neoplasm of bone; B18.2 Chronic viral hepatitis C; J44.9 Chronic obstructive pulmonary disease, unspecified; I25.10 Atherosclerotic heart disease of native coronary artery without angina pectoris; E78.5 Hyperlipidemia, unspecified; E66.01 Morbid (severe) obesity due to excess calories; I11.0 Hypertensive heart disease with heart failure; I50.32 Chronic diastolic (congestive) heart failure; Z72.0 Tobacco use
CPT/HCPCS: 36591; 80053; 85025; 96360; 96375; 96413; 96417

== ENCOUNTER 2022-02-27 10:19 | Outpatient (RCR) | payer OTHER ==
[2022-02-27 10:57] LABS: BASOPHILS % (AUTO) 0 % (0-10); EOSINOPHILS # (AUTO) 0.3 10^3/uL (0.0-0.3); EOSINOPHILS % (AUTO) 5 % (0-10); HEMATOCRIT 45 % (40-54); HEMOGLOBIN 15.5 g/dL (13.3-17.7); LYMPHOCYTES # (AUTO) 0.8 10^3/uL (1.0-4.0); LYMPHOCYTES % (AUTO) 14 % (12-44); MEAN CORPUSCULAR HEMOGLOBIN 35 pg (25-34); MEAN CORPUSCULAR HGB CONC 35 g/dL (32-36); MEAN CORPUSCULAR VOLUME 99 fL (80-99); MEAN PLATELET VOLUME 11.1 fL (9.0-12.2); MONOCYTES # (AUTO) 0.4 10^3/uL (0.0-1.0); MONOCYTES % (AUTO) 7 % (0-12); NEUTROPHILS # (AUTO) 4.4 10^3/uL (1.8-7.8); NEUTROPHILS % (AUTO) 73 % (42-75); PLATELET COUNT 101 10^3/uL (130-400)
[2022-02-27 11:14] LABS: ALBUMIN 3.3 GM/DL (3.2-4.5); BILIRUBIN,TOTAL 0.8 MG/DL (0.1-1.0); CALCIUM 8.7 MG/DL (8.5-10.1); CREATININE SERUM 1.14 MG/DL (0.60-1.30); POTASSIUM 3.2 MMOL/L (3.6-5.0); TOTAL PROTEIN 7.7 GM/DL (6.4-8.2)
== END 2022-03-20 | disposition home or self-care (01) ==
LOC: ONC 10:19
PROVIDERS: ATTEND Internal Medicine Hematology & Oncology
DX: Z51.11 Encounter for antineoplastic chemotherapy (principal); Z45.2 Encounter for adjustment and management of vascular access device; C22.0 Liver cell carcinoma; C79.51 Secondary malignant neoplasm of bone; B18.2 Chronic viral hepatitis C; J44.9 Chronic obstructive pulmonary disease, unspecified; I25.10 Atherosclerotic heart disease of native coronary artery without angina pectoris; E78.5 Hyperlipidemia, unspecified; E66.01 Morbid (severe) obesity due to excess calories; I11.0 Hypertensive heart disease with heart failure; I50.32 Chronic diastolic (congestive) heart failure; Z72.0 Tobacco use; D69.6 Thrombocytopenia, unspecified
CPT/HCPCS: 36591; 80053; 85025; 96360; 96361; 96375; 96413; 96417

== ENCOUNTER 2022-04-03 10:02 | Outpatient (RCR) | payer OTHER ==
[2022-04-03 11:04] LABS: HEMATOCRIT 44 % (40-54); MEAN CORPUSCULAR VOLUME 102 fL (80-99)
[2022-04-03 11:07] LABS: BASOPHILS % (AUTO) 1 % (0-10); EOSINOPHILS # (AUTO) 0.6 10^3/uL (0.0-0.3); EOSINOPHILS % (AUTO) 10 % (0-10); HEMOGLOBIN 15.3 g/dL (13.3-17.7); LYMPHOCYTES # (AUTO) 1.2 10^3/uL (1.0-4.0); LYMPHOCYTES % (AUTO) 19 % (12-44); MEAN CORPUSCULAR HEMOGLOBIN 35 pg (25-34); MEAN CORPUSCULAR HGB CONC 35 g/dL (32-36); MEAN PLATELET VOLUME 10.7 fL (9.0-12.2); MONOCYTES # (AUTO) 0.5 10^3/uL (0.0-1.0); MONOCYTES % (AUTO) 8 % (0-12); NEUTROPHILS # (AUTO) 3.8 10^3/uL (1.8-7.8); NEUTROPHILS % (AUTO) 62 % (42-75); PLATELET COUNT 114 10^3/uL (130-400); WHITE BLOOD COUNT 6.2 10^3/uL (4.3-11.0)
[2022-04-03 11:17] LABS: ALBUMIN 3.6 GM/DL (3.2-4.5); CALCIUM 8.8 MG/DL (8.5-10.1); CREATININE SERUM 1.03 MG/DL (0.60-1.30); POTASSIUM 3.4 MMOL/L (3.6-5.0); TOTAL PROTEIN 8.2 GM/DL (6.4-8.2)
== END 2022-04-20 | disposition home or self-care (01) ==
LOC: ONC 10:02
PROVIDERS: ATTEND Internal Medicine Hematology & Oncology
DX: Z51.11 Encounter for antineoplastic chemotherapy (principal); Z45.2 Encounter for adjustment and management of vascular access device; C22.0 Liver cell carcinoma; C79.51 Secondary malignant neoplasm of bone; B18.2 Chronic viral hepatitis C; J44.9 Chronic obstructive pulmonary disease, unspecified; I25.10 Atherosclerotic heart disease of native coronary artery without angina pectoris; E78.5 Hyperlipidemia, unspecified; E66.01 Morbid (severe) obesity due to excess calories; I11.0 Hypertensive heart disease with heart failure; I50.32 Chronic diastolic (congestive) heart failure; R09.02 Hypoxemia; D69.6 Thrombocytopenia, unspecified; Z72.0 Tobacco use
CPT/HCPCS: 36591; 80053; 85025; 96413; 96417